=== PATIENT | male | born 1935 | race Caucasian/White ===

== ENCOUNTER 2016-09-18 15:39 | Inpatient (IN) | payer MEDICARE, OTHER ==
[~2016-09-18] VITALS: Ht 177.8 cm; Wt 89.4 kg
[~2016-09-18 15:39] MED LIST: DESV50TA PO; EZET1TAB43 PO; FISH12002 PO; HYDR25TA4 PO; LOSA100T7 PO; METOPROLOL 50MG; MULT-974 PO; MULT1TAB63; OMG1KC; TRAM-42 PO; TRAM50TA2 PO; VYTORIN; WARF-48 PO; WARF5TAB6 PO; WRF2.5T; WRF5T
--- NOTE | 2016-09-18 15:44 | ED Syncope ---
General Chief Complaint: Dizziness/Syncope Stated Complaint: FALL Source of Information: Patient Exam Limitations: No Limitations History of Present Illness Time Seen by Provider: 15:42 Initial Comments To ER with reports of a dizziness and fall that occurred while at [facility] today he was shopping and fell to the floor. There was a positive loss of consciousness according to bystanders but it is uncertain whether this was preceding or following the fall. He does have a laceration to the back of his scalp and he is on Coumadin. EMS noted heart rate to be in the 50s upon arrival however blood pressure is adequate at the 150 Symptoms Prior to Episode: None Precipitating Factors: None Current Symptoms: Back to Normal Headache Allergies and Home Medications Allergies Coded Allergies: No Known Drug Allergies (Verified , 01/01/08) Home Medications Desvenlafaxine Succinate 50 Mg Tab.sr.24h 50 MG PO DAILY (Reported) Ezetimibe/Simvastatin 1 Each Tablet 1 EACH PO DAILY (Reported) Fish Oil/Borage/Flax/Om3,6,9#1 1,200 Mg Capsule 1,200 MG PO DAILY (Reported) Hydrochlorothiazide 25 Mg Tablet 25 MG PO DAILY (Reported) Losartan Potassium 100 Mg Tablet #30 100 MG PO DAILY (Reported) Multivitamin 1 Each Tablet 1 EACH PO DAILY (Reported) Tramadol HCl 50 Mg Tablet #30 50 MG PO Q12H PRN PRN PAIN Prescribed by: CELIA MARCELO on 09/09/15 0830 Warfarin Sodium 5 Mg Tablet 5 MG PO DAILY (Reported) take 5mg on Sat, Sun, and Mon, then 2.5mg on Tues, wed, thur, and Fri Warfarin Sodium 5 Mg Tablet 2.5 MG PO DAILY (Reported) take 5mg on Sat, Sun, and Mon, then 2.5mg on Tues, wed, thur, and Fri, take 1 /2 of 5mg tab Constitutional: see HPI EENTM: see HPI Respiratory: no symptoms reported Cardiovascular: no symptoms reported Genitourinary: no symptoms reported Musculoskeletal: no symptoms reported Skin: no symptoms reported Psychiatric/Neurological: No Symptoms Reported Past Stltjnl-Uzsqlc-Lyjckb Hx Patient Social History Former Smoker/When Quit: Aug 15, 1975 Immunizations Up To Date Date of Influenza Vaccine: Apr 14, 2015 Surgeries HX Surgeries: Yes (CABG X4, CATARACTS, SKIN LESION REMOVED ON CHEST) Respiratory Hx Respiratory Disorders: No Cardiovascular Hx Cardiac Disorders: Yes (QUAD BYPASS) Neurological Hx Neurological Disorders: No Reproductive System Hx Reproductive Disorders: No Sexually Transmitted Disease: No HIV/AIDS: No Genitourinary Hx Genitourinary Disorders: No Gastrointestinal Hx Gastrointestinal Disorders: No Musculoskeletal Hx Musculoskeletal Disorders: No Endocrine Hx Endocrine Disorders: No HEENT HX ENT Disorders: Yes (GLASSES) Hearing Impairment: Hard of Hearing Cancer Hx Cancer: No Cancer: Skin Psychosocial Hx Psychiatric Problems: No Integumentary HX Skin/Integumentary Disorder: Yes (LESION OF CHEST WALL) Blood Transfusions Hx Blood Disorders: No Adverse Reaction to a Blood Tr: No Physical Exam Vital Signs Vital Sign - Last 12Hours 09/18/16 15:41 Temp 98.6 Pulse 46 Resp 18 B/P 139/56 Pulse Ox 98 O2 Delivery Room Air Capillary Refill : General Appearance: No Apparent Distress WD/WN HEENT: PERRL/EOMI TMs Normal Neck: Full Range of Motion Normal Inspection Cardiovascular: Regular Rate, Rhythm Normal Peripheral Pulses Respiratory: Normal Breath Sounds No Accessory Muscle Use No Respiratory Distress Gastrointestinal: Normal Bowel Sounds Non Tender Soft Neurologic/Psychiatric: Alert Oriented x3 No Motor/Sensory Deficits Cranial Nerves: Normal Hearing, Normal Speech Motor/Sensory: No Motor Deficit, No Sensory Deficit Skin: Normal Color Warm/Dry Comments He is alert and oriented upon arrival to ER. GCS 15. There is laceration to the left side of the occiput. Pupils are equal. Patient is verbal and joking and laughing with staff. Heart rate is irregular in the mid 40s. Blood pressure 140 systolic. EKG shows a complete heart block with a rate of 45. Laceration Repair : Wound Location: Scalp Wound Length (cm): 3 Wound's Depth, Shape: sub Q Wound Explored: clean Irrigated w/ Saline (ccs): 40 Anesthesia: Lidocaine w/ Epi Volume Anesthetic (ccs): 4 Staple Repair: Stapler 35W Progress Laceration to the scalp left parietal/occipital anesthetized with 5 mL of 1 percent lidocaine with epinephrine. Area scrubbed with chlorhexidine/saline solution. Irrigated with 40 mL of the same. Closed with 8 brian. Progress/Results/Core Measures Results/Orders Lab Results Laboratory Tests Test 09/18/16 15:40 Range/Units Alanine Aminotransferase (ALT/SGPT) 25 0-55 U/L Albumin 3.8 3.2-4.5 G/DL Alkaline Phosphatase 37 L 40-136 U/L Anion Gap 10 5-14 MMOL/L Aspartate Amino Transf (AST/SGOT) 27 5-34 U/L BUN/Creatinine Ratio 17 Band Neutrophils 9 % Basophils # (Auto) 0.0 0.0-0.1 10^3/uL Basophils % (Manual) 0 % Basophils (%) (Auto) 0 0-10 % Blood Morphology Comment NORMAL Blood Urea Nitrogen 26 H 7-18 MG/DL Calcium Level 8.2 L 8.5-10.1 MG/DL Carbon Dioxide Level 26 21-32 MMOL/L Chloride Level 100 98-107 MMOL/L Creatinine 1.49 H 0.60-1.30 MG/DL Eosinophils # (Auto) 0.0 0.0-0.3 10^3/uL Eosinophils % (Manual) 1 % Eosinophils (%) (Auto) 1 0-10 % Estimat Glomerular Filtration Rate 45 Glucose Level 130 H 70-105 MG/DL Hematocrit 39 L 40-54 % Hemoglobin 13.6 13.3-17.7 G/DL INR Comment 1.8 H 0.8-1.4 Lymphocytes # (Auto) 1.7 1.0-4.0 X 10^3 Lymphocytes % (Manual) 32 % Lymphocytes (%) (Auto) 34 12-44 % Magnesium Level 1.9 1.8-2.4 MG/DL Mean Corpuscular Hemoglobin 31 25-34 PG Mean Corpuscular Hemoglobin Concent 35 32-36 G/DL Mean Corpuscular Volume 88 80-99 FL Mean Platelet Volume 10.5 H 7.4-10.4 FL Monocytes # (Auto) 1.4 H 0.0-1.0 X 10^3 Monocytes % (Manual) 15 % Monocytes (%) (Auto) 28 H 0-12 % Neutrophils # (Auto) 1.9 1.8-7.8 X 10^3 Neutrophils % (Manual) 43 % Neutrophils (%) (Auto) 37 L 42-75 % Platelet Count 156 130-400 10^3/uL Potassium Level 3.7 3.6-5.0 MMOL/L Prothrombin Time 20.3 H 12.2-14.7 SEC Red Blood Count 4.45 4.35-5.85 10^6/uL Red Cell Distribution Width 14.1 10.0-14.5 % Sodium Level 136 135-145 MMOL/L Total Bilirubin 0.5 0.1-1.0 MG/DL Total Protein 6.5 6.4-8.2 G/DL Troponin I < 0.30 <0.30 NG/ML White Blood Count 5.1 4.3-11.0 10^3/uL My Orders Orders-RADHA ANAYA SERVER SUPPORT TECHNICIAN Cbc With Automated Diff (09/18/16 15:41) Magnesium (09/18/16 15:41) Ua Culture If Indicated (09/18/16 15:41) Protime With Inr (09/18/16 15:41) Ct Head/Cervical Spine Wo (09/18/16 15:41) Saline Lock/Iv-Start (09/18/16 15:41) Manual Differential (09/18/16 15:40) Lidocaine/Epi 1% 1:100,000 (Xylocaine /E (09/18/16 16:00) Vital Signs/I&O Vital Sign - Last 12Hours 09/18/16 15:41 Temp 98.6 Pulse 46 Resp 18 B/P 139/56 Pulse Ox 98 O2 Delivery Room Air Diagnostic Imaging Diagonstic Imaging: Xray, CT Plain Films/CT/US/NM/MRI: chest, head Comments NAME: ROSA ISELA [facility] REC#: [id number] PT STATUS: REG ER : 1935 PHYSICIAN: ANJEL POND MD ADMIT DATE: 09/18/16/ER Draft Date of Exam:09/18/16 CHEST 1 VIEW, AP/PA ONLY INDICATION: Syncopal episode. TECHNIQUE: Single view chest 4:02 PM. CORRELATION STUDY: 01/03/2009 FINDINGS: Post sternotomy changes. Cardiac enlargement. Vasculature within normal limits. Likely scarring about the left lung base again demonstrated. Lungs are overall relatively clear. Trace effusions not excluded. Defibrillator pad over the left lower chest. IMPRESSION: Post sternotomy changes. Stable cardiac enlargement without failure. Trace effusions not excluded. Dictated on workstation # [id number] Dict: 09/18/16 1611 Trans: 09/18/16 1633 [facility] [id number] Interpreted by: WESTON LEBLANC DO Electronically signed by: Departure Communication Time/Spoke to Admitting Phy: 16:29 Communication Discussed the case with Dr. Olson. We'll admit the patient, plan tentatively for pacemaker placement today Time/Spoke to Consulting Physi: 16:39 Communication/Consulting We will consult Dr. Wilson Given the renal insufficiency. Impression Impression: Primary Impression: Syncope Additional Impressions: Scalp laceration Complete heart block Disposition: ADMITTED INPATIENT Condition: Improved Decision to Admit Reason: Admit from ER (General) Decision to Admit/Date: Sep 25, 2016 Time/Decision to Admit Time: 16:30 Departure-Patient Inst. Referrals: KATHY LOREDO MD (PCP/Family) Primary Care Physician RADHA ANAYA APRN Sep 18, 2016 15:44
--- OUTSIDE RECORDS SUMMARY | 2016-09-18 15:45 | XMS REPORT | Continuity of Care Document ---
Author Author [facility] Address Unknown Phone Unavailable Allergies Active Description Code Type Severity Reaction Onset Reported/Identified Relationship to Patient Clinical Status Yes No Known Drug Allergies [id number] Drug Allergy Unknown N/ A 01/01/2008 Medications Problems Date Dx Coded Attending Type Code Diagnosis Diagnosed By 01/09/2014 ANJEL POND MD Ot 805.4 FX LUMBAR VERTEBRA-CLOSE 01/09/2014 ANJEL POND MD Ot E884.9 FALL-1 LEVEL TO OTH NEC 01/09/2014 ANJEL POND MD Ot V58.61 ANTICOAGULANTS,LT,CURRENT USE 01/09/2014 ANJEL POND MD Ot V58.69 OTH MED,LT,CURRENT USE 01/11/2014 HAYDEE PRUITT MD Ot 272.0 PURE HYPERCHOLESTEROLEM 01/11/2014 HAYDEE PRUITT MD Ot 401.9 HYPERTENSION NOS 01/11/2014 HAYDEE PRUITT MD Ot 924.20 CONTUSION OF FOOT 01/11/2014 HAYDEE PRUITT MD Ot E884.9 FALL-1 LEVEL TO OT NEC 01/11/2014 HAYDEE PRUITT MD Ot V43.3 HEART VALVE REPLAC NEC 01/11/2014 HAYDEE PRUITT MD Ot V45.81 AORTOCORONARY BYPASS 01/11/2014 HAYDEE PRUITT MD Ot V58.61 ANTICOAGULANTS,LT,CURRENT USE 01/11/2014 HAYDEE PRUITT MD Ot V58.69 OTH MED,LT,CURRENT USE 05/19/2014 RADHA DONOVAN DO V06.1 TDAP DX 10/08/2014 Ot 441.4 10/08/2014 Ot 574.20 10/15/2014 Ot 441.4 10/15/2014 Ot 574.20 05/10/2015 Ot 433.30 05/10/2015 Ot 441.4 05/10/2015 Ot 397.0 05/10/2015 Ot 414.00 05/10/2015 Ot 424.0 05/10/2015 Ot 429.3 05/10/2015 Ot V43.3 05/10/2015 Ot 441.4 05/10/2015 Ot 574.20 05/12/2015 BAIMA, CHARLOTTE L BLOCKER AND CUTTER CONTACT LENS Ot I10 05/12/2015 BAIMA, [place] L [employer] CUTTER CONTACT LENS Ot I25.10 05/12/2015 BAIMA, [place] L BLOCKER AND CUTTER CONTACT LENS Ot I71.4 05/12/2015 BAIMA, [place] L BLOCKER AND CUTTER CONTACT LENS Ot I77.9 05/12/2015 BAIMA, [place] L BLOCKER AND CUTTER CONTACT LENS Ot Z79.01 05/12/2015 BAIMA, [place] L BLOCKER AND CUTTER CONTACT LENS Ot Z95.4 06/01/2015 BAIMA, [place] L BLOCKER AND CUTTER CONTACT LENS Ot I10 06/01/2015 BAIMA, [place] L BLOCKER AND CUTTER CONTACT LENS Ot I25.10 06/01/2015 BAIMA, [place] L BLOCKER AND CUTTER CONTACT LENS Ot I71.4 06/01/2015 BAIMA, [place] L BLOCKER AND CUTTER CONTACT LENS Ot I77.9 06/01/2015 BAIMA, [place] L BLOCKER AND CUTTER CONTACT LENS Ot Z79.01 06/01/2015 BAIMA, [place] L BLOCKER AND CUTTER CONTACT LENS Ot Z95.4 06/15/2015 BAIMA, [place] L BLOCKER AND CUTTER CONTACT LENS Ot I10 06/15/2015 BAIMA, [place] L BLOCKER AND CUTTER CONTACT LENS Ot I25.10 06/15/2015 BAIMA, [place] L BLOCKER AND CUTTER CONTACT LENS Ot I71.4 06/15/2015 BAIMA, [place] L BLOCKER AND CUTTER CONTACT LENS Ot I77.9 06/15/2015 BAIMA, [place] L BLOCKER AND CUTTER CONTACT LENS Ot Z79.01 06/15/2015 BAIMA, [place] L BLOCKER AND CUTTER CONTACT LENS Ot Z95.4 08/10/2015 Ot 433.30 08/10/2015 Ot 441.4 08/10/2015 Ot 397.0 08/10/2015 Ot 414.00 08/10/2015 Ot 424.0 08/10/2015 Ot 429.3 08/10/2015 Ot V43.3 08/10/2015 Ot 441.4 08/10/2015 Ot 574.20 08/10/2015 BAIMA, [place] L BLOCKER AND CUTTER CONTACT LENS Ot I10 08/10/2015 BAIMA, [place] L BLOCKER AND CUTTER CONTACT LENS Ot I25.10 08/10/2015 BA[place] L BLOCKER AND CUTTER CONTACT LENS Ot I71.4 08/10/2015 BA[place] L BLOCKER AND CUTTER CONTACT LENS Ot I77.9 08/10/2015 BAIMA, [place] L BLOCKER AND CUTTER CONTACT LENS Ot Z79.01 08/10/2015 BAIMA, [place] L BLOCKER AND CUTTER CONTACT LENS Ot Z95.4 08/10/2015 BAIMA, [place] L BLOCKER AND CUTTER CONTACT LENS Ot I10 08/10/2015 BAIMA, [place] L BLOCKER AND CUTTER CONTACT LENS Ot I25.10 08/10/2015 BAIMA, [place] L BLOCKER AND CUTTER CONTACT LENS Ot I71.4 08/10/2015 BAIMA, [place] L BLOCKER AND CUTTER CONTACT LENS Ot I77.9 08/10/2015 BAIMA, [place] L BLOCKER AND CUTTER CONTACT LENS Ot Z79.01 08/10/2015 [place] L BLOCKER AND CUTTER CONTACT LENS Ot Z95.4 08/10/2015 DAVIAN RIVERA, CELIA Rdz Ot L98.9 08/10/2015 DAVIAN RIVERA, CELIA M Ot Z01.810 08/10/2015 DAVIAN RIVERA, CELIA M Ot Z01.812 08/10/2015 DAVIAN RIVERA, CELIA Rdz Ot Z11.2 08/10/2015 DAVIAN RIVERA, CELIA Rdz Ot 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 08/10/2015 DAVIAN RIVERA, CELIA Rdz Ot I10 ESSENTIAL (PRIMARY) HYPERTENSION 08/10/2015 DAVIAN RIVERA, CELIA Rdz Ot Z95.2 PRESENCE OF PROSTHETIC HEART VALVE 08/18/2015 DAVIAN RIVERA, CELIA Rzd Ot L98.9 08/18/2015 DAVIAN RIVERA, CELIA M Ot Z01.810 08/18/2015 DAVIAN RIVERA, CELIA Rdz Ot Z01.812 08/18/2015 DAVIAN RIVERA, CELIA Rdz Ot Z11.2 09/09/2015 DAVIAN RIVERA, CELIA Rdz Ot 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 09/09/2015 DAVIAN RIVERA, CELIA Rdz Ot Z79.01 HADOOP INFRASTRUCTURE ARCHITECT (CURRENT) USE OF ANTICOAGULANT 02/02/2016 Ot 441.4 ABDOM AORTIC ANEURYSM 02/02/2016 Ot 397.0 TRICUSPID VALVE DISEASE 02/02/2016 Ot 414.00 CORON ATHEROSCLER NOS TYPE VESSEL, NATIV 02/02/2016 Ot 424.0 MITRAL VALVE DISORDER 02/02/2016 Ot 429.3 CARDIOMEGALY 02/02/2016 Ot V43.3 HEART VALVE REPLAC NEC 02/02/2016 Ot 441.4 ABDOM AORTIC ANEURYSM 02/02/2016 Ot 574.20 CHOLELITHIASIS NOS 02/02/2016 BAICH[place]LOTTE ROSARIO L BLOCKER AND CUTTER CONTACT LENS Ot I10 ESSENTIAL (PRIMARY) HYPERTENSION 02/02/2016 BAIM[place] L BLOCKER AND CUTTER CONTACT LENS Ot I25.10 ATHSCL HEART DISEASE OF [place] CORONARY 02/02/2016 BAIM[place]OO[place] L BLOCKER AND CUTTER CONTACT LENS Ot I71.4 ABDOMINAL AORTIC ANEURYSM, WITHOUT RUPTU 02/02/2016 BAIMA, [place] L BLOCKER [employer] CUTTER CONTACT LENS Ot I77.9 DISORDER OF ARTERIES AND ARTERIOLES, UNS 02/02/2016 BAIMA [place] L [employer] CUTTER CONTACT LENS Ot Z79.01 SNF (CURRENT) USE OF ANTICOAGULANT 02/02/2016 BAIMA, [place] L BLOCKER AND CUTTER CONTACT LENS Ot Z95.4 PRESENCE OF OTHER HEART-VALVE REPLACEMEN 02/02/2016 BAIMA [place] L BLOCKER [employer] CUTTER CONTACT LENS Ot I10 ESSENTIAL (PRIMARY) HYPERTENSION 02/02/2016 BAIMA [place] L BLOCKER AND CUTTER CONTACT LENS Ot I25.10 ATHSCL HEART DISEASE OF [place] CORONARY 02/02/2016 [place] ROSARIO L BLOCKER AND CUTTER CONTACT LENS Ot I71.4 ABDOMINAL AORTIC ANEURYSM, WITHOUT RUPTU 02/02/2016 [place] L BLOCKER AND CUTTER CONTACT LENS Ot I77.9 DISORDER OF ARTERIES AND ARTERIOLES, UNS 02/02/2016 BAIMA [place] L BLOCKER AND CUTTER CONTACT LENS Ot Z79.01 SNF (CURRENT) USE OF ANTICOAGULANT 02/02/2016 BAIMA, [place] L BLOCKER AND CUTTER CONTACT LENS Ot Z95.4 PRESENCE OF OTHER HEART-VALVE REPLACEMEN 02/02/2016 DAVIAN RIVERA, CELIA Rdz Ot L98.9 DISORDER OF THE SKIN AND SUBCUTANEOUS TI 02/02/2016 DAVIAN RIVERA, CELIA Rdz Ot Z01.810 ENCOUNTER FOR PREPROCEDURAL CARDIOVASCUL 02/02/2016 DAVIAN RIVERA, CELIA Rdz Ot Z01.812 ENCOUNTER FOR PREPROCEDURAL LABORATORY E 02/02/2016 DAVIAN RIVERA, CELIA Rdz Ot Z11.2 ENCOUNTER FOR SCREENING FOR OTHER BACTER 02/02/2016 DAVIAN RIVERA, CELIA Rdz Ot 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 02/02/2016 DAVIAN RIVERA, CELIA Rdz Ot Z01.818 ENCOUNTER FOR OTHER PREPROCEDURAL EXAMIN 02/02/2016 DAVIAN RIVERA, CELIA dRz Ot Z11.2 ENCOUNTER FOR SCREENING FOR OTHER BACTER 02/03/2016 KENY YOONC, ALI FACP CCDS Ot R42 DIZZINESS AND GIDDINESS 02/03/2016 KENY RIVERA FACC, ALI FACP CCDS Ot I25.10 ATHSCL HEART DISEASE OF [place] CORONARY 02/03/2016 KENY RIVERA FACC, ALI FACP CCDS Ot I44.1 ATRIOVENTRICULAR BLOCK, SECOND DEGREE 02/03/2016 KENY RIVERA FACC, ALI FACP CCDS Ot 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 02/03/2016 KENY RIVERA FACC, ALI FACP CCDS Ot I71.4 ABDOMINAL AORTIC ANEURYSM, WITHOUT RUPTU 02/03/2016 KENY YOONC, ALI FACP CCDS Ot R42 DIZZINESS AND GIDDINESS 02/03/2016 KENY RIVERA FACC, ALI FACP CCDS Ot Z79.01 HADOOP INFRASTRUCTURE ARCHITECT (CURRENT) USE OF ANTICOAGULANT 02/03/2016 KENY YOONC, ALI FACP CCDS Ot Z95.4 PRESENCE OF OTHER HEART-VALVE REPLACEMEN 03/02/2016 KENY RIVERA FACC, ALI FACP CCDS Ot I25.10 ATHSCL HEART DISEASE OF [place] CORONARY 03/02/2016 KENY RIVERA FACC, ALI FACP CCDS Ot I44.1 ATRIOVENTRICULAR BLOCK, SECOND DEGREE 03/02/2016 KENY RIVERA FACC, ALI FACP CCDS Ot 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 Visit Date/Time Discharge Status Pt. Type Provider Facility Loc./Unit Complaint [id number] 05/19/2014 10:36:00 05/19/2014 23: 59:59 CLS Outpatient RADHA DONOVAN DO
[2016-09-18 15:55] LABS: BASOPHILS % (AUTO) 0 % (0-10); EOSINOPHILS % (AUTO) 1 % (0-10); LYMPHOCYTES # (AUTO) 1.7 X 10^3 (1.0-4.0); LYMPHOCYTES % (AUTO) 34 % (12-44); MEAN CORPUSCULAR HEMOGLOBIN 31 PG (25-34); MEAN CORPUSCULAR HGB CONC 35 G/DL (32-36); MEAN CORPUSCULAR VOLUME 88 FL (80-99); MEAN PLATELET VOLUME 10.5 FL (7.4-10.4); MONOCYTES # (AUTO) 1.4 X 10^3 (0.0-1.0); MONOCYTES % (AUTO) 28 % (0-12); NEUTROPHILS # (AUTO) 1.9 X 10^3 (1.8-7.8); NEUTROPHILS % (AUTO) 37 % (42-75); PLATELET COUNT 156 10^3/uL (130-400); RED BLOOD COUNT 4.45 10^6/uL (4.35-5.85); RED CELL DISTRIBUTION WIDTH 14.1 % (10.0-14.5); WHITE BLOOD COUNT 5.1 10^3/uL (4.3-11.0)
[2016-09-18] MEDS ORDERED: LIDOCAINE/EPI 1%-1:100,000 (XYLOCAINE) 20ML INJ ONE (16:00)
[2016-09-18 16:06] LABS: BAND NEUTROPHILS 9 %; BASOPHILS % (MANUAL) 0 %; EOSINOPHILS % (MANUAL) 1 %; LYMPHOCYTES % (MANUAL) 32 %; NEUTROPHILS % (MANUAL) 43 %
--- NOTE | 2016-09-18 16:13 | Cardiology History & Physical ---
HPI-Cardiology Cardiology H&P Date of Admission 09-18-16 Primary Care Physician Damian Irvin MD Attending Physician Moraima Olson MD FACP [facility] Consulting Physician MARIO Mr. Bray is an 81 year old male who was brought into the ED by EMS after he had a syncopal episode while at [employer]. He states he does not recall any of the events leading up to the episode. He states he was standing and the next thing he recalls they were putting him in an ambulance and he had hit his head. He reports intermittent episodes of dizziness which are chronic. He does not recall feeling dizzy before he passed out. He is unsure of how long he was out. He does not report any c/o CP, palpitations or dyspnea. His son Rosa Isela Smith is at the bedside. He currently has brian to a wound on the left back side of his head. Review of Systems-Cardiology Review of Systems Constitutional: As described under HPI Eyes: No blurred vision, No drainage, No pain, No vision change Ears/Nose/Throat: No ear discharge, No ear pain, No nasal drainage, No ulcerations Respiratory: As described under HPI Cardiovascular: As described under HPI Gastrointestinal: No constipation, No diarrhea, No nausea, No vomiting, No stool coloration changes Genitourinary: No dysuria, No discharge, No frequency, No hematuria, No urgency Skin: No rash, No skin related problems, No ulcerations Psychiatric/Neurological: syncopeNo anxiety, No depression, No focal weakness , No seizure Hematologic: No bleeding abnormalities EXO-Dzdust-Glghfk Hx Patient Social History Former smoker/When Quit: Aug 15, 1975 Recent Foreign Travel: No Recent Infectious Disease Expo: No Immunizations Up To Date Date of Influenza Vaccine: Apr 14, 2015 Past Medical History PMH As described under Assessment. Family Medical History Family Medical History: Father had a CVA. Does not report any family h/o CAD or SCD. Allergies and Home Medications Allergies Coded Allergies: No Known Drug Allergies (Verified , 01/01/08) Home Medications Desvenlafaxine Succinate 50 Mg Tab.sr.24h 50 MG PO DAILY (Reported) Ezetimibe/Simvastatin 1 Each Tablet 1 EACH PO DAILY (Reported) Fish Oil/Borage/Flax/Om3,6,9#1 1,200 Mg Capsule 1,200 MG PO DAILY (Reported) Hydrochlorothiazide 25 Mg Tablet 25 MG PO DAILY (Reported) Losartan Potassium 100 Mg Tablet #30 100 MG PO DAILY (Reported) Multivitamin 1 Each Tablet 1 EACH PO DAILY (Reported) Tramadol HCl 50 Mg Tablet #30 50 MG PO Q12H PRN PRN PAIN Prescribed by: CELIA MARCELO on 09/09/15 0830 Warfarin Sodium 5 Mg Tablet 5 MG PO DAILY (Reported) take 5mg on Sat, Sun, and Mon, then 2.5mg on , sat, , and Sat Warfarin Sodium 5 Mg Tablet 2.5 MG PO DAILY (Reported) take 5mg on Sat, Sun, and Mon, then 2.5mg on , sat, , and Sat, take 1 /2 of 5mg tab Physical Exam-Cardiology Physical Exam Vital Signs/I&O Vital Sign - Last 12Hours 09/18/16 15:41 Temp 98.6 Pulse 46 Resp 18 B/P 139/56 Pulse Ox 98 O2 Delivery Room Air Capillary Refill : Less Than 3 Seconds Constitutional: appears stated ageNo apparent distress, well-developed well- nourished HEENT: PERRLNo discharge, hard of hearing oral hygience is goodNo ulceration , No xanthelasmas are seen Neck: No carotid bruit, carotid pulses are 2 + bilaterally Respiratory: No accessory muscle use, No respiratory distress, lungs clear to auscultation Cardiovascular: irregularly irregular (bradycardic) S1 and S2 (S2 crisp and mechanical) Gastrointestinal: No tender, soft roundNo spleenomegaly Rectal: deferred Extremities: No clubbing, No cyanosis, No significant edema Neurologic/Psychiatric: alert oriented x 3 power is 5/5 both on sides Skin: No rash, No ulcerations, other (occipital, left side of head with laceration, brian in place) Data Review Labs Laboratory Tests 09/18/16 15:40: Alanine Aminotransferase (ALT/SGPT) 25, Albumin 3.8, Alkaline Phosphatase 37L, Anion Gap 10, Aspartate Amino Transf (AST/SGOT) 27, BUN/Creatinine Ratio 17, Band Neutrophils 9, Basophils # (Auto) 0.0, Basophils % (Manual) 0, Basophils (% ) (Auto) 0, Blood Morphology Comment NORMAL, Blood Urea Nitrogen 26H, Calcium Level 8.2L, Carbon Dioxide Level 26, Chloride Level 100, Creatinine 1.49H, Eosinophils # (Auto) 0.0, Eosinophils % (Manual) 1, Eosinophils (%) (Auto) 1, Estimat Glomerular Filtration Rate 45, Glucose Level 130H, Hematocrit 39L, Hemoglobin 13.6, INR Comment 1.8H, Lymphocytes # (Auto) 1.7, Lymphocytes % ( Manual) 32, Lymphocytes (%) (Auto) 34, Magnesium Level 1.9, Mean Corpuscular Hemoglobin 31, Mean Corpuscular Hemoglobin Concent 35, Mean Corpuscular Volume 88, Mean Platelet Volume 10.5H, Monocytes # (Auto) 1.4H, Monocytes % (Manual) 15 , Monocytes (%) (Auto) 28H, Neutrophils # (Auto) 1.9, Neutrophils % (Manual) 43 , Neutrophils (%) (Auto) 37L, Platelet Count 156, Potassium Level 3.7, Prothrombin Time 20.3H, Red Blood Count 4.45, Red Cell Distribution Width 14.1, Sodium Level 136, Total Bilirubin 0.5, Total Protein 6.5, Troponin I < 0.30, White Blood Count 5.1 Radiology NAME: ROSA ISELA BRAY [facility] REC#: [id number] PT STATUS: REG ER : 1935 PHYSICIAN: ANJEL POND MD ADMIT DATE: 09/18/16/ER Draft Date of Exam:09/18/16 CHEST 1 VIEW, AP/PA ONLY INDICATION: Syncopal episode. TECHNIQUE: Single view chest 4:02 PM. CORRELATION STUDY: 01/03/2009 FINDINGS: Post sternotomy changes. Cardiac enlargement. Vasculature within normal limits. Likely scarring about the left lung base again demonstrated. Lungs are overall relatively clear. Trace effusions not excluded. Defibrillator pad over the left lower chest. IMPRESSION: Post sternotomy changes. Stable cardiac enlargement without failure. Trace effusions not excluded. Dictated on workstation # [id number] Dict: 09/18/16 1611 Trans: 09/18/16 1633 [facility] [id number] Interpreted by: WESTON LEBLANC DO Electronically signed by: NAME: ROSA ISELA BRAY [facility] REC#: [id number] PT STATUS: REG ER : 1935 PHYSICIAN: RADHA ANAYA APRN ADMIT DATE: 09/18/16/ER Draft Date of Exam:09/18/16 CT HEAD/CERVICAL SPINE WO PROCEDURE: CT head and CT cervical spine without contrast. TECHNIQUE: Multiple contiguous axial images were obtained through the brain and cervical spine without the use of intravenous contrast. Sagittal and coronal reformations through the cervical spine were then performed. INDICATION: Fell, head and neck pain. CT of the head: FINDINGS: There is soft tissue edema over the posterior aspect of the left parietal bone. There are a few droplets of gas in this area as well. There is no sign of a skull fracture, however, and there is no evidence for an acute intracranial abnormality. Specifically, there is no mass, shift of the midline or hemorrhage. The ventricles are not abnormally dilated and stable in size when compared to the prior exam of 01/09/14. The cortical atrophy seen previously is again evident and no different. The orbits are symmetrical and within normal limits. The sinuses, where visualized, are clear. IMPRESSION: There is soft tissue edema along the posterior aspect of the left parietal bone. There is no evidence for a skull fracture in this area and there is no sign of an acute intracranial abnormality. CT cervical spine: There are no previous studies available for comparison. FINDINGS: The reconstructed parasagittal images show straightening of the cervical spine. This may be secondary to muscle spasm and/or positioning. There is moderate narrowing of the disc space at C5-C6 and mild narrowing at C6-C7. There does not appear to be any significant central stenosis at either of these levels. There is no fracture or acute bony abnormality identified. There is no sign of retropharyngeal edema. The lung apices are clear. In the inferior pole of the right lobe of the thyroid, there is a 1.4 x 1.8 cm low-density nodule. Ultrasound would be recommended for further evaluation of this finding. IMPRESSION: 1. There is no evidence for an acute bony abnormality. 2. There is degenerative disc and bony disease at C5-C6 and C6-C7. 3. The low-density nodule in the right lobe of the thyroid is of uncertain etiology. Ultrasound would be recommended to better characterize this finding. 4. These results were discussed with Dr. Pond in the ER. Dictated on workstation # [id number] Dict: 09/18/16 1604 Trans: 09/18/16 1641 [facility] [id number] Interpreted by: ORIN PORTER MD ECG Impression ECG Comment CHB A/P-Cardiology Assessment/Admission Diagnosis Syncope d/t CHB Intermittent advanced AV block. Following cessation of beta blockers there still is evidence of Mobitz I and Mobitz II AV block, albeit asymptomatic. This has been evaluated by Dr Kelly, his EP, in Aug 2013 and no device implant was advised. Repeat Holter of 02/01/16 sinus jourdan with 1 deg AVB, intermittent 2:1 AVB, and sinus arrest episodes with pauses up to 3 sec, but apparently without syncopal symptoms. This, too, has been evaluated by his EP, Dr Kelly, on 02/21/16 , who feels that this is 1st deg and Wenckebach that pacemaker implantation is not needed. 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 Last echocardiogram was in 05/24/15. It showed well preserved globular left ventricular systolic function with an ejection fraction of 50- 55%, paradoxical septal motion, adequately functioning mechanical prosthetic valve, mild MR, mod enlargement of ascending aorta and left atrium Coronary artery disease with a history of coronary artery bypass surgery. Cardiac catheterization of 01/03/08 showed patent composite left internal mammary artery and saphenous vein graft to left anterior descending artery, two obtuse marginal arteries and the distal right coronary artery. The arteries to which the grafts go exhibited moderate diffuse disease. Proximal portions of the [place] coronary arteries were occluded. Hyperlipidemia being treated with statin therapy. This is being followed by Dr. Irvin. Chronic anticoagulation with warfarin History of abdominal aortic aneurysm on CT angiography of the abdominal aorta in 2002. On this CT angiography, some dissection was reported as well, and the patient saw Dr. Jung of Cardiovascular Surgery, who felt that the dissection was old. On subsequent ultrasonography by Dr. 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 On abdominal CT with contrast of July 2009, there was a calcified aorta without aneurysm. In August 2009 ultrasonography did not report an significant aneurysm. 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 On 06/30 u/s showed mild dilatation of distal abdominal aorta (measuring 3.1 cm); this remains unchanged on abd aortic u/s of 05/10/15 that showed AAA measuring 2.9x3.1. Last abd ao u/s on 04/18/16: AAA measuring 3 cm in max dimension, unchanged compared to previous study Cholelithiasis. Diverticulosis of the sigmoid colon on abdominal CT with contrast of July 2009. Hypertension, currently well controlled. Mild to mod carotid arterial disease per ultrasonography of 02/10/16 H/o restless legs, currently stable Presbycusis Discussion and Recomendations Syncopal episode likely d/t CHB. Advise PPM implantation. We have discussed procedure, risks, benefits and potential complications of PPM implantation. He and his son verbalize understanding and provide informed consent for dual chamber PPM. Continue current medications including warfarin d/t prosthetic AoVR. Admit to the ICU. We will plan on device implantation tomorrow or sooner if indicated. Monitor lab closely. Further recommendations will be based on his hospital course. This H&P is being scribed by Mickey Ernst APRN on behalf of Dr. Olson after discussion regarding plan of care. Physician Assessment Physician Assessment Lungs: good bilat air entry Cor: reg A&R * As documented in our note above * I spoke with him and answered his questions * Plan perm pacemaker for tomorrow CHARLOTTE ERNST COMPLETION ENGINEER Sep 18, 2016 16:13 MORAIMA OLSON MD FACP FAC CCDS Sep 18, 2016 19:15
[2016-09-18 16:17] LABS: INR 1.8 (0.8-1.4); PROTHROMBIN TIME PATIENT 20.3 SEC (12.2-14.7)
[2016-09-18 16:24] LABS: ALANINE AMINOTRANSFERASE 25 U/L (0-55); ALBUMIN 3.8 G/DL (3.2-4.5); ANION GAP 10 MMOL/L (5-14); ASPARTATE AMINO TRANSFERASE 27 U/L (5-34); BILIRUBIN,TOTAL 0.5 MG/DL (0.1-1.0); BLOOD UREA NITROGEN 26 MG/DL (7-18); BUN/CREATININE RATIO 17; CALCIUM 8.2 MG/DL (8.5-10.1); CARBON DIOXIDE 26 MMOL/L (21-32); CHLORIDE 100 MMOL/L (98-107); CREATININE SERUM 1.49 MG/DL (0.60-1.30); GFR ESTIMATED 45; GLUCOSE 130 MG/DL (70-105); MAGNESIUM 1.9 MG/DL (1.8-2.4); POTASSIUM 3.7 MMOL/L (3.6-5.0); SODIUM 136 MMOL/L (135-145); TOTAL PROTEIN 6.5 G/DL (6.4-8.2)
[2016-09-18 16:30] LABS: TROPONIN I < 0.30 NG/ML (<0.30)
--- NOTE | 2016-09-18 16:34 | Diagnostic Imaging Report ---
INDICATION: Syncopal episode. TECHNIQUE: Single view chest 4:02 PM. CORRELATION STUDY: 01/03/2009 FINDINGS: Post sternotomy changes. Cardiac enlargement. Vasculature within normal limits. Likely scarring about the left lung base again demonstrated. Lungs are overall relatively clear. Trace effusions not excluded. Defibrillator pad over the left lower chest. IMPRESSION: Post sternotomy changes. Stable cardiac enlargement without failure. Trace effusions not excluded. Dictated by: Dictated on workstation # [id number]
--- NOTE | 2016-09-18 16:42 | Diagnostic Imaging Report ---
PROCEDURE: CT head and CT cervical spine without contrast. TECHNIQUE: Multiple contiguous axial images were obtained through the brain and cervical spine without the use of intravenous contrast. Sagittal and coronal reformations through the cervical spine were then performed. INDICATION: Fell, head and neck pain. CT of the head: FINDINGS: There is soft tissue edema over the posterior aspect of the left parietal bone. There are a few droplets of gas in this area as well. There is no sign of a skull fracture, however, and there is no evidence for an acute intracranial abnormality. Specifically, there is no mass, shift of the midline or hemorrhage. The ventricles are not abnormally dilated and stable in size when compared to the prior exam of 01/09/14. The cortical atrophy seen previously is again evident and no different. The orbits are symmetrical and within normal limits. The sinuses, where visualized, are clear. IMPRESSION: There is soft tissue edema along the posterior aspect of the left parietal bone. There is no evidence for a skull fracture in this area and there is no sign of an acute intracranial abnormality. CT cervical spine: There are no previous studies available for comparison. FINDINGS: The reconstructed parasagittal images show straightening of the cervical spine. This may be secondary to muscle spasm and/or positioning. There is moderate narrowing of the disc space at C5-C6 and mild narrowing at C6-C7. There does not appear to be any significant central stenosis at either of these levels. There is no fracture or acute bony abnormality identified. There is no sign of retropharyngeal edema. The lung apices are clear. In the inferior pole of the right lobe of the thyroid, there is a 1.4 x 1.8 cm low-density nodule. Ultrasound would be recommended for further evaluation of this finding. IMPRESSION: 1. There is no evidence for an acute bony abnormality. 2. There is degenerative disc and bony disease at C5-C6 and C6-C7. 3. The low-density nodule in the right lobe of the thyroid is of uncertain etiology. Ultrasound would be recommended to better characterize this finding. 4. These results were discussed with Dr. Baker in the ER. Dictated by: Dictated on workstation # [id number]
[2016-09-18] MEDS ORDERED: BACITRACIN INJECTION 50,000 UNIT, SODIUM CHLORIDE 0.9% IRRIGATIO 500 ML IR ONE ×2 (17:00)
[2016-09-18] MEDS ORDERED: ceFAZolin 1,000 MG (ANCEF) VIAL IV ONE (17:00)
[2016-09-18] MEDS ORDERED: warFARin 5 MG (COUMADIN) TAB PO NR (19:30)
[2016-09-18] MEDS ORDERED: CATHETER FLUSH 10 ML SYR IV PRN (19:30)
[2016-09-18] MEDS: ACETAMINOPHEN 325 MG TABLET/CAPLET (TYLENOL) PO PRN (19:32)
[2016-09-18 19:45] VITALS: BP 135/45
[2016-09-18 20:00] VITALS: BP 126/46
[2016-09-18 21:00] VITALS: BP 110/47
[2016-09-18] MEDS: NS IV 1000 ML 1,000 ML IV SCH (21:01)
[2016-09-18 22:00] VITALS: BP 115/51
[2016-09-18 23:00] VITALS: BP 122/61
[2016-09-19] VITALS (24 sets, daily range): BP systolic 99–135; BP diastolic 37–78
[2016-09-19 03:59] LABS: BASOPHILS % (AUTO) 0 % (0-10); EOSINOPHILS % (AUTO) 0 % (0-10); LYMPHOCYTES # (AUTO) 1.2 X 10^3 (1.0-4.0); LYMPHOCYTES % (AUTO) 26 % (12-44); MEAN CORPUSCULAR HEMOGLOBIN 30 PG (25-34); MEAN CORPUSCULAR HGB CONC 34 G/DL (32-36); MEAN CORPUSCULAR VOLUME 88 FL (80-99); MEAN PLATELET VOLUME 10.3 FL (7.4-10.4); MONOCYTES # (AUTO) 0.7 X 10^3 (0.0-1.0); MONOCYTES % (AUTO) 16 % (0-12); NEUTROPHILS # (AUTO) 2.7 X 10^3 (1.8-7.8); NEUTROPHILS % (AUTO) 58 % (42-75); PLATELET COUNT 143 10^3/uL (130-400); RED BLOOD COUNT 4.57 10^6/uL (4.35-5.85); WHITE BLOOD COUNT 4.7 10^3/uL (4.3-11.0)
[2016-09-19 04:10] LABS: INR 1.8 (0.8-1.4); PROTHROMBIN TIME PATIENT 20.3 SEC (12.2-14.7)
[2016-09-19 04:32] LABS: ALBUMIN 3.6 G/DL (3.2-4.5); BILIRUBIN,TOTAL 0.5 MG/DL (0.1-1.0); CALCIUM 8.1 MG/DL (8.5-10.1); CREATININE SERUM 1.42 MG/DL (0.60-1.30); MAGNESIUM 1.8 MG/DL (1.8-2.4); PHOSPHORUS 2.7 MG/DL (2.3-4.7); POTASSIUM 4.2 MMOL/L (3.6-5.0); TOTAL PROTEIN 6.2 G/DL (6.4-8.2)
[2016-09-19] MEDS: ACETAMINOPHEN 325 MG TABLET/CAPLET (TYLENOL) PO PRN ×3 (04:43→18:22)
[2016-09-19 04:51] LABS: THYROID STIMULATING HORMONE 1.24 UIU/ML (0.35-4.94)
--- NOTE | 2016-09-19 08:12 | Progress Note-Cardiology ---
Cardiology SOAP Progress Note Subjective: Has had flu-like symptoms for several days and had high-grade fever last night No cp or palp No syncope since admission Objective: I&O/Vital Signs Vital Sign - Last 12Hours 09/18/16 09/18/16 09/18/16 09/19/16 21:00 22:00 23:00 00:00 Pulse 67 71 76 72 Resp 16 19 19 21 B/P 110/47 115/51 122/61 114/59 Pulse Ox 95 94 95 94 O2 Delivery Room Air Room Air Room Air Room Air 09/19/16 09/19/16 09/19/16 09/19/16 00:00 00:00 01:00 01:00 Temp 100.0 Pulse 75 75 Resp 17 B/P 131/66 Pulse Ox 94 96 O2 Delivery Room Air 09/19/16 09/19/16 09/19/16 09/19/16 02:00 03:00 04:00 04:00 Pulse 62 47 49 Resp 28 12 9 B/P 132/41 109/47 125/49 Pulse Ox 97 95 94 97 O2 Delivery Room Air Room Air Room Air 09/19/16 09/19/16 09/19/16 09/19/16 04:30 04:43 05:00 05:13 Temp 103.0 103.0 100.8 Pulse 46 Resp 17 B/P 130/52 Pulse Ox 93 O2 Delivery Room Air 09/19/16 09/19/16 06:00 06:30 Temp 100.8 Pulse 66 Resp 15 B/P 118/49 Pulse Ox 92 O2 Delivery Room Air Intake and Output 09/19/16 00:00 Intake Total 200 ml Output Total 500 ml Balance -300 ml Weight (Pounds): 199 Weight (Ounces): 9.0 Weight (Calculated Kilograms): 90.408017 Constitutional: appears stated ageNo apparent distress, well-developed well- nourished Respiratory: No accessory muscle use, No respiratory distress, lungs clear to auscultation (except bs diminished at the bases) Cardiovascular: irregularly irregular (bradycardic) S1 and S2 (S2 crisp and mechanical) Gastrointestional: No tender, soft roundNo spleenomegaly Extremities: No clubbing, No cyanosis, No significant edema Neurologic/Psychiatric: alert oriented x 3 power is 5/5 both on sides Skin: No rash, No ulcerations, other (occipital, left side of head with laceration, brian in place) Results/Procedures: Labs Laboratory Tests 09/18/16 15:40: Alanine Aminotransferase (ALT/SGPT) 25, Albumin 3.8, Alkaline Phosphatase 37L, Anion Gap 10, Aspartate Amino Transf (AST/SGOT) 27, BUN/Creatinine Ratio 17, Band Neutrophils 9, Basophils # (Auto) 0.0, Basophils % (Manual) 0, Basophils (% ) (Auto) 0, Blood Morphology Comment NORMAL, Blood Urea Nitrogen 26H, Calcium Level 8.2L, Carbon Dioxide Level 26, Chloride Level 100, Creatinine 1.49H, Eosinophils # (Auto) 0.0, Eosinophils % (Manual) 1, Eosinophils (%) (Auto) 1, Estimat Glomerular Filtration Rate 45, Glucose Level 130H, Hematocrit 39L, Hemoglobin 13.6, INR Comment 1.8H, Lymphocytes # (Auto) 1.7, Lymphocytes % ( Manual) 32, Lymphocytes (%) (Auto) 34, Magnesium Level 1.9, Mean Corpuscular Hemoglobin 31, Mean Corpuscular Hemoglobin Concent 35, Mean Corpuscular Volume 88, Mean Platelet Volume 10.5H, Monocytes # (Auto) 1.4H, Monocytes % (Manual) 15 , Monocytes (%) (Auto) 28H, Neutrophils # (Auto) 1.9, Neutrophils % (Manual) 43 , Neutrophils (%) (Auto) 37L, Platelet Count 156, Potassium Level 3.7, Prothrombin Time 20.3H, Red Blood Count 4.45, Red Cell Distribution Width 14.1, Sodium Level 136, Total Bilirubin 0.5, Total Protein 6.5, Troponin I < 0.30, White Blood Count 5.1 09/19/16 03:39: Alanine Aminotransferase (ALT/SGPT) 26, Albumin 3.6, Alkaline Phosphatase 37L, Anion Gap 10, Aspartate Amino Transf (AST/SGOT) 29, BUN/Creatinine Ratio 17, Basophils # (Auto) 0.0, Basophils (%) (Auto) 0, Blood Urea Nitrogen 24H, Calcium Level 8.1L, Carbon Dioxide Level 25, Chloride Level 102, Creatinine 1.42H, Eosinophils # (Auto) 0.0, Eosinophils (%) (Auto) 0, Estimat Glomerular Filtration Rate 48, Glucose Level 112H, Hematocrit 40, Hemoglobin 13.8, INR Comment 1.8H, Lymphocytes # (Auto) 1.2, Lymphocytes (%) (Auto) 26, Magnesium Level 1.8, Mean Corpuscular Hemoglobin 30, Mean Corpuscular Hemoglobin Concent 34, Mean Corpuscular Volume 88, Mean Platelet Volume 10.3, Monocytes # (Auto) 0.7, Monocytes (%) (Auto) 16H, Neutrophils # (Auto) 2.7, Neutrophils (%) (Auto) 58, Platelet Count 143, Potassium Level 4.2, Prothrombin Time 20.3H, Red Blood Count 4.57, Red Cell Distribution Width 14.0, Sodium Level 137, Total Bilirubin 0.5, Total Protein 6.2L, White Blood Count 4.7, Phosphorus Level 2.7, Thyroid Stimulating Hormone (TSH) 1.24 Laboratory Tests 09/18/16 15:40 09/19/16 03:39 A/P: Assessment: Syncope d/t intermittnet CHB. Previously he has domonstrated intermittent advanced AV block, but he had been evaluated by his EP, Dr Kelly in Aug 2013 and on 02/21/16 and was felt not to need a pacemaker Intermittent high-grade fever during this hosp History of aortic valve replacement and replacement of the ascending aorta and aortic arch for a large ascending thoracic aortic aneurysm in 1999. Last echocardiogram was in 05/24/15. It showed well preserved globular left ventricular systolic function with an ejection fraction of 50- 55%, paradoxical septal motion, adequately functioning mechanical prosthetic valve, mild MR, mod enlargement of ascending aorta and left atrium Coronary artery disease with a history of coronary artery bypass surgery. Cardiac catheterization of 01/03/08 showed patent composite left internal mammary artery and saphenous vein graft to left anterior descending artery, two obtuse marginal arteries and the distal right coronary artery. The arteries to which the grafts go exhibited moderate diffuse disease. Proximal portions of the [place] coronary arteries were occluded. Hyperlipidemia being treated with statin therapy. This is being followed by Dr. Irvin. Chronic anticoagulation with warfarin History of abdominal aortic aneurysm on CT angiography of the abdominal aorta in 2002. On this CT angiography, some dissection was reported as well, and the patient saw Dr. Jung of Cardiovascular Surgery, who felt that the dissection was old. On subsequent ultrasonography by Dr. 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 On abdominal CT with contrast of July 2009, there was a calcified aorta without aneurysm. In August 2009 ultrasonography did not report an significant aneurysm. 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 On 06/30 u/s showed mild dilatation of distal abdominal aorta (measuring 3.1 cm); this remains unchanged on abd aortic u/s of 05/10/15 that showed AAA measuring 2.9x3.1. Last abd ao u/s on 04/18/16: AAA measuring 3 cm in max dimension, unchanged compared to previous study Cholelithiasis. Diverticulosis of the sigmoid colon on abdominal CT with contrast of July 2009. Hypertension, currently well controlled. Mild to mod carotid arterial disease per ultrasonography of 02/10/16 H/o restless legs, currently stable Presbycusis Plan: * High-grade fever is of concern * I have called Dr Irvin and discussed the case with him and have asked for a Medical consult to address fever * We will repeat echo * We will postpone pacemaker for now, until the issue of systemic infection is sorted out ASHLEY BUSTILLO MD FACP FAC CCDS Sep 19, 2016 08:12
[2016-09-19] MEDS ORDERED: ENOXAPARIN 100 MG/1 ML (LOVENOX) SYR SC NR (08:15)
[2016-09-19] MEDS: NS IV 1000 ML 1,000 ML IV SCH (10:30)
[2016-09-19] MEDS ORDERED: cefTRIAXone INJECTION 1,000 MG in NS (IVPB) 50 ML IV SCH (11:45)
[2016-09-19] MEDS ORDERED: NS IV 1000 ML 1,000 ML IV ONE (12:00)
[2016-09-19] MEDS ORDERED: AZITHROMYCIN 250 MG TAB (ZITHROMAX) PO NR (12:00)
[2016-09-19 12:43] LABS: BILIRUBIN,URINE NEGATIVE (NEGATIVE); KETONES,URINE NEGATIVE (NEGATIVE); LEUKOCYTE ESTERASE ,URINE NEGATIVE (NEGATIVE); NITRITE,URINE NEGATIVE (NEGATIVE); PH,URINE 6.5 (5-9); PROTEIN,URINE NEGATIVE (NEGATIVE); UROBILINOGEN,URINE NORMAL (NORMAL)
--- NOTE | 2016-09-19 12:50 | Diagnostic Imaging Report ---
Portable erect AP chest at 05:07 a.m. INDICATION: Syncope. FINDINGS: The heart is mildly enlarged, but the heart does seem somewhat less prominent than noted on the prior exam of 09/18/2016. The sternotomy wires and surgical clips noted previously are again evident and no different. In the interval since the previous study, some crowding of the bronchovascular markings in each infrahilar region has developed. I suspect that there is now mild atelectasis/infiltrate in each infrahilar region. The band of atelectasis/scar formation coursing obliquely over the left lower lobe seen previously is again evident and no different. The lungs are otherwise clear. There is no significant pleural effusion identified. The mediastinum is not widened. The osseous structures are intact. IMPRESSION: The appearance of the chest has worsened somewhat since the prior study as mild atelectasis/infiltrate has developed in both infrahilar regions. A follow-up study will be recommended for continued evaluation. Dictated by: Dictated on workstation # [id number]
[2016-09-19 12:52] LABS: SQUAMOUS EPITHELIAL CELL,UR RARE /HPF
--- NOTE | 2016-09-19 13:12 | Pulmonary Consultation ---
History of Present Illness History of Present Illness Date of Consultation 09/19/16 13:06 Date of Admission History of Present Illness 81yo who presented to ED via EMS [facility]p [facility] PT does not recall event. Denies CP, palpitations, or dyspnea. He did hit his head and has brian for wound closure left occipital area. Pt has been running a fever and influenza this morning is positive. Allergies and Home Medications Allergies Coded Allergies: No Known Drug Allergies (Verified , 01/01/08) Home Medications Desvenlafaxine Succinate 50 Mg Tab.sr.24h 50 MG PO DAILY (Reported) Ezetimibe/Simvastatin 1 Each Tablet 1 TAB PO DAILY (Reported) Fish Oil/Borage/Flax/Om3,6,9#1 1,200 Mg Capsule 1,200 MG PO DAILY (Reported) Hydrochlorothiazide 25 Mg Tablet 25 MG PO DAILY (Reported) Losartan Potassium 100 Mg Tablet 100 MG PO DAILY (Reported) Multivitamin 1 Each Tablet 1 TAB PO DAILY (Reported) Warfarin Sodium 5 Mg Tablet 5 MG PO SuMo (Reported) Warfarin Sodium 5 Mg Tablet 2.5 MG PO We (Reported) Past Sljlvkb-Okelfp-Cjvvcs Hx Patient Social History Alcohol Use: Denies Use Recreational Drug Use: No Smoking Status: Former Smoker Type Used: Cigars Former Smoker/When Quit: Aug 15, 1975 Recent Foreign Travel: No Contact w/Someone Who Travel: No Recent Infectious Disease Expo: No Recent Hopitalizations: No Physical Abuse Screen: No Sexual Abuse: No Immunizations Up To Date Date of Pneumonia Vaccine: Apr 14, 2016 Date of Influenza Vaccine: Apr 18, 2016 Seasonal Allergies Seasonal Allergies: No Surgeries HX Surgeries: Yes (CABG X4, CATARACTS, SKIN LESION REMOVED ON CHEST) Surgeries: CABG Respiratory Hx Respiratory Disorders: No Cardiovascular Hx Cardiac Disorders: Yes (QUAD BYPASS, AND ONE STENT) Cardiac Disorders: Coronary Artery Disease, Heart Attack Neurological Hx Neurological Disorders: No Reproductive System Hx Reproductive Disorders: No Sexually Transmitted Disease: No HIV/AIDS: No Genitourinary Hx Genitourinary Disorders: No Gastrointestinal Hx Gastrointestinal Disorders: No Musculoskeletal Hx Musculoskeletal Disorders: No Endocrine Hx Endocrine Disorders: No HEENT HX ENT Disorders: Yes (GLASSES) Hearing Impairment: Hard of Hearing Cancer Hx Cancer: Yes Cancer: Skin Psychosocial Hx Psychiatric Problems: No Integumentary HX Skin/Integumentary Disorder: Yes (LESION OF CHEST WALL) Blood Transfusions Hx Blood Disorders: No Adverse Reaction to a Blood Tr: No Exam Exam Vital Signs Date Time Temp Pulse Resp B/P Pulse Ox O2 Delivery O2 Flow Rate FiO2 09/19/16 11:53 99.7 09/19/16 11:53 99.8 09/19/16 11:00 62 18 117/54 96 Room Air 09/19/16 10:34 100.6 09/19/16 10:15 100.6 09/19/16 10:00 63 17 102/52 97 Room Air 09/19/16 09:00 58 20 104/37 96 Room Air 09/19/16 08:45 94 09/19/16 08:45 100.7 09/19/16 08:00 59 25 99/37 98 Room Air 09/19/16 07:45 99.7 09/19/16 07:00 67 24 109/45 96 Room Air 09/19/16 07:00 61 09/19/16 06:30 100.8 09/19/16 06:00 66 15 118/49 92 Room Air 09/19/16 05:00 46 17 130/52 93 Room Air 09/19/16 04:43 103.0 09/19/16 04:30 103.0 09/19/16 04:00 49 9 125/49 97 Room Air 09/19/16 04:00 94 09/19/16 03:00 47 12 109/47 95 Room Air 09/19/16 02:00 62 28 132/41 97 Room Air 09/19/16 01:00 75 17 131/66 96 Room Air 09/19/16 01:00 75 09/19/16 00:00 94 09/19/16 00:00 100.0 09/19/16 00:00 72 21 114/59 94 Room Air 09/18/16 23:00 76 19 122/61 95 Room Air 09/18/16 22:00 71 19 115/51 94 Room Air 09/18/16 21:00 67 16 110/47 95 Room Air 09/18/16 20:00 94 09/18/16 20:00 44 16 126/46 98 Room Air 09/18/16 19:48 45 09/18/16 19:45 45 8 135/45 100 Room Air 09/18/16 19:45 96 3/7/17 19:40 101.1 46 18 97 09/18/16 15:41 98.6 46 18 139/56 98 Room Air I & O 09/19/16 07:00 Intake Total 400 ml Output Total 1000 ml Balance -600 ml General Appearance: No Apparent Distress WD/WN HEENT: PERRL/EOMI TMs Normal Neck: Full Range of Motion Normal Inspection Respiratory: Normal Breath Sounds No Accessory Muscle Use No Respiratory Distress Cardiovascular: Regular Rate, Rhythm Normal Peripheral Pulses Capillary Refill: Less Than 3 Seconds Neurologic/Psychiatric: Alert Oriented x3 No Motor/Sensory Deficits Skin: Normal Color Warm/Dry Results Lab Laboratory Tests 09/18/16 15:40 09/19/16 03:39 Assessment/Plan Assessment/Plan S/P syncope -Head CT no acute change Influezna + -Tamiflu HX of aortic valve replacement hx of advanced AV block Clinical Quality Measures DVT/VTE Risk/Contraindication: Risk Factor Score Per Nursin RFS Level Per Nursing on Admit: 4+=Very High TOYA NAVARRO DO Sep 19, 2016 13:12
[2016-09-19] MEDS: OSELTAMIVIR 75 MG (TAMIFLU) BOX OF 10 PO SCH ×2 (13:30→20:33)
--- NOTE | 2016-09-19 16:47 | Consultation-Hospitalist ---
HPI History of Present Illness: HPI/Chief Complaint Mr. Shah is an 81-year-old white male well-known to me who was feeling well up until Saturday. He started off with a dry cough and body aches and pains. He then developed some chills and fever. He reported poor appetite. He apparently was out at [facility] with his son and while standing recalls feeling lightheaded subsequently blacked out and fell striking his head suffering a laceration over the left parietal area. There was no witnessed seizure activity. He does have known sick sinus syndrome and a little over a year ago was sent to an EP physician in [place] for consideration for pacemaker placement as he was noted to have a 3 second positive and a Holter monitor. It was ultimately decided to hold off at that time. In the emergency room he was apparently having episodes of second-degree AV block with bradycardia and reported pauses over 2 seconds. He was also noted to be febrile and was transferred to the intensive care unit admitted by Dr. BUSTILLO. He was sleeping soundly this morning upon my arrival arouses easily was alert. He is a rather poor historian a more accurate history is obtained from his son present at the bedside. Currently his monitor revealed sinus rhythm with a heart rate in 60s Date Seen 09/19/16 Attending Physician Kathy Loredo MD PCP Kathy Loredo MD Referring Physician Date of Admission Sep 18, 2016 at 17:01 Home Medications & Allergies Home Medications Reviewed patient Home Medication Reconciliation Form Allergies Coded Allergies: No Known Drug Allergies (Verified , 01/01/08) Past Ftxfesp-Gckmnq-Ekhiev Hx Patient Social History Alcohol Use: Denies Use Recreational Drug Use: No Smoking Status: Former Smoker Former smoker/When Quit: Aug 15, 1975 Type Used: Cigars Physical Abuse Screen: No Sexual Abuse: No Recent Foreign Travel: No Contact w/other who traveled: No Recent Hopitalizations: No Recent Infectious Disease Expo: No Immunizations Up To Date Date of Pneumonia Vaccine: Apr 14, 2016 Date of Influenza Vaccine: Apr 18, 2016 Seasonal Allergies Seasonal Allergies: No Surgeries HX Surgeries: Yes (CABG X4, CATARACTS, SKIN LESION REMOVED ON CHEST) Surgeries: CABG Respiratory Hx Respiratory Disorders: No Cardiovascular Hx Cardiovascular Disorders: Yes (QUAD BYPASS, AND ONE STENT) Cardiac Disorders: Coronary Artery Disease, Heart Attack Neurological Hx Neurological Disorders: No Reproductive System Hx Reproductive Disorders: No Sexually Transmitted Disease: No HIV/AIDS: No Genitourinary Hx Genitourinary Disorders: No Gastrointestinal Hx Gastrointestinal Disorders: No Musculoskeletal Hx Musculoskeletal Disorders: No Endocrine Hx Endocrine Disorders: No HEENT HX ENT Disorders: Yes (GLASSES) Hearing Impairment: Hard of Hearing Cancer Hx Cancer: Yes Cancer: Skin Psychosocial Hx Psychiatric Problems: No Integumentary HX Skin/Integumentary Disorder: Yes (LESION OF CHEST WALL) Blood Transfusions Hx Blood Disorders: No Adverse Reaction to a Blood Tr: No Review of Systems Constitutional: see HPI chills fever malaise weakness Respiratory: cough Cardiovascular: see HPINo chest pain, No edema, No Hx of Intervention, No palpitations, syncope vascular heart diseasNo other Physical Exam Physical Exam Vital Signs Vital Sign - Last 12Hours 09/18/16 15:41 Temp 98.6 Pulse 46 Resp 18 B/P 139/56 Pulse Ox 98 O2 Delivery Room Air Capillary Refill : Less Than 3 Seconds General Appearance: No Apparent Distress HEENT: PERRL/EOMI Other (Left conjunctival injection noted Natalee left parietal laceration mild swelling) Neck: Full Range of Motion Normal Inspection Supple Respiratory: No Accessory Muscle Use No Respiratory Distress Other (Few rales noted in the left base that do clear with inspiration chest is clear elsewhere) Cardiovascular: Regular Rate, Rhythm No Edema No Gallop Normal Peripheral Pulses Other (Metallic S1 and S2 with soft 1 to 2/6 systolic ejection murmur heard best at the second right intercostal space no diastolic murmurs are noted) Extremity: Normal Capillary Refill Normal Inspection Normal Range of Motion Non Tender No Calf Tenderness No Pedal Edema Neurologic/Psychiatric: Alert Oriented x3 Results Results/Procedures Lab Laboratory Tests 09/18/16 15:40 09/19/16 03:39 Assessment/Plan Admission Diagnosis 1. Syncope secondary to combination of sick sinus syndrome with likely high- grade heart block in addition to influenza A Tamiflu is been initiated. Pacemaker placement per Dr. BUSTILLO to follow 2. Influenza A despite vaccination earlier this year. 3. History of coronary artery disease status post bypass. 4. Ascending aortic aneurysm status post repair same time the patient underwent bypass grafting with mechanical aortic valve replacement. Clinical Quality Measures DVT/VTE Risk/Contraindication: Risk Factor Score Per Nursin RFS Level Per Nursing on Admit: 4+=Very High KATHY LOREDO MD Sep 19, 2016 16:47
[2016-09-19] MEDS ORDERED: warFARin 5 MG (COUMADIN) TAB PO SCH (18:00)
[2016-09-19] MEDS ORDERED: IBUPROFEN 600 MG (MOTRIN) TAB PO NR (20:09)
[2016-09-20] VITALS (21 sets, daily range): BP systolic 101–154; BP diastolic 34–94
[2016-09-20] MEDS: NS IV 1000 ML 1,000 ML IV SCH ×3 (01:10→15:11)
[2016-09-20 05:15] LABS: BASOPHILS % (AUTO) 0 % (0-10); EOSINOPHILS # (AUTO) 0.1 10^3/uL (0.0-0.3); EOSINOPHILS % (AUTO) 3 % (0-10); LYMPHOCYTES # (AUTO) 1.1 X 10^3 (1.0-4.0); LYMPHOCYTES % (AUTO) 46 % (12-44); MEAN CORPUSCULAR HEMOGLOBIN 30 PG (25-34); MEAN CORPUSCULAR HGB CONC 34 G/DL (32-36); MEAN CORPUSCULAR VOLUME 89 FL (80-99); MEAN PLATELET VOLUME 10.6 FL (7.4-10.4); MONOCYTES # (AUTO) 0.6 X 10^3 (0.0-1.0); MONOCYTES % (AUTO) 22 % (0-12); NEUTROPHILS # (AUTO) 0.7 X 10^3 (1.8-7.8); NEUTROPHILS % (AUTO) 28 % (42-75); PLATELET COUNT 119 10^3/uL (130-400); RED BLOOD COUNT 4.35 10^6/uL (4.35-5.85); RED CELL DISTRIBUTION WIDTH 13.9 % (10.0-14.5); WHITE BLOOD COUNT 2.5 10^3/uL (4.3-11.0)
[2016-09-20 05:24] LABS: INR 1.6 (0.8-1.4); PROTHROMBIN TIME PATIENT 18.4 SEC (12.2-14.7)
[2016-09-20 05:33] LABS: CALCIUM 7.7 MG/DL (8.5-10.1); CREATININE SERUM 1.25 MG/DL (0.60-1.30); MAGNESIUM 1.8 MG/DL (1.8-2.4); PHOSPHORUS 2.6 MG/DL (2.3-4.7); POTASSIUM 4.4 MMOL/L (3.6-5.0)
[2016-09-20] MEDS ORDERED: HEParin (CATH LAB) 0 ML IV ONE (06:40)
[2016-09-20] MEDS ORDERED: NS IV 1000 ML 0 ML ONE (06:40)
[2016-09-20] MEDS ORDERED: LIDOCAINE 1% INJ 20 ML (XYLOCAINE) VIAL ONE (06:40)
[2016-09-20] MEDS ORDERED: ceFAZolin 1,000 MG (ANCEF) VIAL ONE (06:41)
[2016-09-20] MEDS ORDERED: BACITRACIN INJECTION 50,000 UNIT, SODIUM CHLORIDE 0.9% IRRIGATIO 500 ML IR ONE ×2 (06:45)
--- NOTE | 2016-09-20 08:38 | Progress Note-Hospitalist ---
Subjective HPI/CC On Admission Mr. Shah is an 81-year-old white male well-known to me who was feeling well up until Saturday. He started off with a dry cough and body aches and pains. He then developed some chills and fever. He reported poor appetite. He apparently was out at [facility] with his son and while standing recalls feeling lightheaded subsequently blacked out and fell striking his head suffering a laceration over the left parietal area. There was no witnessed seizure activity. He does have known sick sinus syndrome and a little over a year ago was sent to an EP physician in [place] for consideration for pacemaker placement as he was noted to have a 3 second positive and a Holter monitor. It was ultimately decided to hold off at that time. In the emergency room he was apparently having episodes of second-degree AV block with bradycardia and reported pauses over 2 seconds. He was also noted to be febrile and was transferred to the intensive care unit admitted by Dr. BUSTILLO. He was sleeping soundly this morning upon my arrival arouses easily was alert. He is a rather poor historian a more accurate history is obtained from his son present at the bedside. Currently his monitor revealed sinus rhythm with a heart rate in 60s Date Seen 09/20/16 Subjective/Events-last exam patient was sleeping this morning arouses easily. He reports loose nonproductive cough. He denies chest pain. Staff report heart rates in the 40- 70 bpm range with no high-grade heart block. Patient denies chills or fever MAXIMUM TEMPERATURE was little over 101. Objective Exam Vital Signs Vital Sign - Last 12Hours 09/18/16 15:41 Temp 98.6 Pulse 46 Resp 18 B/P 139/56 Pulse Ox 98 O2 Delivery Room Air Capillary Refill : Less Than 3 Seconds General Appearance: No Apparent Distress Eyes: Bilateral Eye PERRL Neck: Full Range of Motion Supple Respiratory: Other (U rales in left base that do clear with deep inspiration. No wheezing or rhonchi are appreciated.) Cardiovascular: Regular Rate, Rhythm No Edema No Gallop No JVD Normal Peripheral Pulses Other (metallic S1 and S2 with soft 1 2/6 soft ejection murmur heard best at second right intercostal space unchanged no diastolic murmurs are noted.) Extremity: No Pedal Edema Other (no purpura noted no petechia) Neurologic/Psychiatric: Alert Oriented x3 Normal Mood/Affect Results/Procedures Lab Laboratory Tests 09/20/16 04:48 Assessment/Plan Assessment and Plan Assess & Plan/Chief Complaint 1. Sick sinus syndrome with syncope due to high-grade heart block. 2. Influenza a aggravating number 1. 3. Neutropenia and mild thrombocytopenia likely due to number 2 with possible early left lower lobe pneumonia. While I think that viral etiology did influenza is most likely he is immune compromised and for this reason and also due to the fact that pacemaker placement is going to be necessary will initiate Rocephin IV today. I would recommend putting off pacemaker placement and tell neutropenia and thrombocytopenia have stabilized. We will need to discuss these concerns with Dr. BUSTILLO. KATHY LOREDO MD Sep 20, 2016 08:38
[2016-09-20] MEDS: OSELTAMIVIR 75 MG (TAMIFLU) BOX OF 10 PO SCH ×2 (08:39→20:05)
--- NOTE | 2016-09-20 08:56 | Diagnostic Imaging Report ---
Portable erect AP chest at 4:40 AM. INDICATION: Respiratory distress. The heart is stable when compared with the prior exam of 09/19/2016. The sternotomy wires and surgical clips noted previously are again evident and no different. The band of increased density arching over the left heart border seen on the previous study is again evident and unchanged. The infrahilar regions do seem better aerated than on the prior exam. This may in part be due to the improved inspiratory effort; however, there is only a small amount of residual atelectasis/infiltrate in both infrahilar regions. The upper lungs are clear. The mediastinum is not widened. The osseous structures are intact. IMPRESSION: The appearance of the chest has improved as the infrahilar regions do seem better aerated. No new abnormality has developed. Dictated by: Dictated on workstation # [id number]
[2016-09-20] MEDS ORDERED: AZITHROMYCIN 250 MG TAB (ZITHROMAX) PO SCH (09:00)
--- NOTE | 2016-09-20 09:22 | ECHOCARDIOGRAPHY REPORT ---
PROCEDURE PHYSICIAN: ASHLEY OLSON DATE OF PROCEDURE: 09/19/2016 TWO DIMENSIONAL ECHOCARDIOGRAM REPORT PRIMARY PHYSICIAN: Dr. Irvin OTHER PHYSICIAN: REFERRING PHYSICIAN: ORDERING PHYSICIAN: Dr. Olson INDICATION FOR THE PROCEDURE: 1. Syncope. 2. Stasis post mechanical prosthetic aortic valve. MEASUREMENTS DERIVED VALUES LV DIAMETER (LAX) NORMALS NORMALS Diastolic 5.2 (3.6-5.2) Eject. Fract. (60%+/-6%) Systolic (2.3-3.9) Diastolic Vol. % Shortening (0.22-0.42) Systolic Vol. Aortic Root 3.9 IVS THICKNESS Diastolic 1.3 (0.6-1.1) LVPW THICKNESS Diastolic 1.2 (0.6-1.1) LA DIAMETER Systolic 4.6 (2.1-3.7) DESCRIPTION: This is a technically somewhat difficult study. Global left ventricular systolic function appears well preserved. There appears to be some degree of paradoxical septal motion. Left ventricular ejection fraction is approximately 55%. Mitral and tricuspid valve leaflets show good leaflet excursion. Shadowing is seen from mechanical prosthetic aortic valve. There is mild concentric left ventricular hypertrophy. Doppler imaging does not show significant valvular regurgitation. Pulmonary artery systolic pressure is approximately 30 mmHg. Mitral inflow is consistent with grade 1 diastolic dysfunction of the left ventricle. Peak pressure gradient across the aortic valve is 12 mmHg with a mean gradient of approximately 8 mmHg and the aortic valve area is calculated 1.7 sq cm. There is no evidence of significant intracardiac shunt on this transthoracic echocardiographic study. CONCLUSION: 1. Well preserved global left ventricular systolic function with an ejection fraction of approximately 55%. 2. Paradoxical septal motion. 3. Status post mechanical prosthetic aortic valve which appears to be functioning adequately. 4. Mild diastolic dysfunction of the left ventricle. 5. Pulmonary artery systolic pressure is estimated to be 30 mmHg. Job ID: [id number] Dictated Date: 09/19/2016 17:58:36 Elevator Service Mechanic Date: 09/20/2016 09:11:10 / gautam
[2016-09-20] MEDS ORDERED: ENOXAPARIN 80 MG/0.8 ML (LOVENOX) SYR SC NR (10:15)
[2016-09-20] MEDS ORDERED: warFARin 10 MG (COUMADIN) TAB PO NR (10:15)
--- NOTE | 2016-09-20 10:18 | Progress Note-Cardiology ---
Cardiology SOAP Progress Note Subjective: Gen malaise No cp or palp or syncope Objective: I&O/Vital Signs Vital Sign - Last 12Hours 09/19/16 09/20/16 09/20/16 09/20/16 23:00 00:00 00:00 00:15 Temp 97.5 Pulse 52 43 Resp 17 16 B/P 114/78 126/52 Pulse Ox 92 97 94 O2 Delivery Room Air Room Air 09/20/16 09/20/16 09/20/16 09/20/16 01:00 01:00 02:00 03:00 Pulse 45 42 43 42 Resp 14 7 14 B/P 115/34 101/44 121/44 Pulse Ox 94 97 99 O2 Delivery Room Air Room Air Room Air 09/20/16 09/20/16 09/20/16 09/20/16 04:00 04:00 04:00 05:00 Temp 97.4 Pulse 53 53 Resp 11 15 B/P 123/65 127/62 Pulse Ox 95 97 95 O2 Delivery Room Air Room Air 09/20/16 09/20/16 09/20/16 09/20/16 06:00 06:00 07:00 08:00 Temp 98.1 Pulse 57 61 Resp 9 B/P Pulse Ox 97 97 O2 Delivery Room Air Intake and Output 09/20/16 00:00 Intake Total 700 ml Output Total 1650 ml Balance -950 ml Weight (Pounds): 201 Weight (Ounces): 9.0 Weight (Calculated Kilograms): 91.772157 Constitutional: appears stated ageNo apparent distress, well-developed well- nourished Respiratory: No accessory muscle use, No respiratory distress, lungs clear to auscultation (except bs diminished at the bases) Cardiovascular: irregularly irregular (bradycardic) S1 and S2 (S2 crisp and mechanical) Gastrointestional: No tender, soft roundNo spleenomegaly Extremities: No clubbing, No cyanosis, No significant edema Neurologic/Psychiatric: alert oriented x 3 power is 5/5 both on sides Skin: No rash, No ulcerations, other (occipital, left side of head with laceration, brian in place) Results/Procedures: Labs Laboratory Tests 09/19/16 12:25: Urine Bacteria NEGATIVE, Urine Bilirubin NEGATIVE, Urine Casts NONE, Urine Clarity CLEAR, Urine Color YELLOW, Urine Crystals NONE, Urine Culture Indicated NO, Urine Glucose (UA) NEGATIVE, Urine Ketones NEGATIVE, Urine Leukocyte Esterase NEGATIVE, Urine Mucus NEGATIVE, Urine Nitrite NEGATIVE, Urine Protein NEGATIVE, Urine RBC NONE, Urine RBC (Auto) NEGATIVE, Urine Specific [place] 1.015L, Urine Squamous Epithelial Cells RARE, Urine Urobilinogen NORMAL, Urine WBC NONE, Urine pH 6.5 09/20/16 04:48: Anion Gap 8, BUN/Creatinine Ratio 21, Basophils # (Auto) 0.0, Basophils (%) ( Auto) 0, Blood Urea Nitrogen 26H, Calcium Level 7.7L, Carbon Dioxide Level 26, Chloride Level 105, Creatinine 1.25, Eosinophils # (Auto) 0.1, Eosinophils (%) ( Auto) 3, Estimat Glomerular Filtration Rate 55, Glucose Level 92, Hematocrit 39L , Hemoglobin 13.2L, INR Comment 1.6H, Lymphocytes # (Auto) 1.1, Lymphocytes (%) (Auto) 46H, Magnesium Level 1.8, Mean Corpuscular Hemoglobin 30, Mean Corpuscular Hemoglobin Concent 34, Mean Corpuscular Volume 89, Mean Platelet Volume 10.6H, Monocytes # (Auto) 0.6, Monocytes (%) (Auto) 22H, Neutrophils # ( Auto) 0.7L, Neutrophils (%) (Auto) 28L, Phosphorus Level 2.6, Platelet Count 119L, Potassium Level 4.4, Prothrombin Time 18.4H, Red Blood Count 4.35, Red Cell Distribution Width 13.9, Sodium Level 139, White Blood Count 2.5L 09/20/16 09:05: Lactic Acid Level 1.16 Microbiology 09/19/16 Influenza Types A,B Antigen (MAU) - Final, Complete Laboratory Tests 09/18/16 15:40 09/19/16 03:39 09/20/16 04:48 A/P: Assessment: Syncope d/t intermittnet CHB. Previously he has domonstrated intermittent advanced AV block, but he had been evaluated by his EP, Dr Kelly in Aug 2013 and on 02/21/16 and was felt not to need a pacemaker Influenza A Mild leukopenia and mild thrombocytopenia History of aortic valve replacement and replacement of the ascending aorta and aortic arch for a large ascending thoracic aortic aneurysm in 1999. Last echocardiogram was in 05/24/15. It showed well preserved globular left ventricular systolic function with an ejection fraction of 50- 55%, paradoxical septal motion, adequately functioning mechanical prosthetic valve, mild MR, mod enlargement of ascending aorta and left atrium Coronary artery disease with a history of coronary artery bypass surgery. Cardiac catheterization of 01/03/08 showed patent composite left internal mammary artery and saphenous vein graft to left anterior descending artery, two obtuse marginal arteries and the distal right coronary artery. The arteries to which the grafts go exhibited moderate diffuse disease. Proximal portions of the [place] coronary arteries were occluded. Hyperlipidemia being treated with statin therapy. This is being followed by Dr. Irvin. Chronic anticoagulation with warfarin History of abdominal aortic aneurysm on CT angiography of the abdominal aorta in 2002. On this CT angiography, some dissection was reported as well, and the patient saw Dr. Jung of Cardiovascular Surgery, who felt that the dissection was old. On subsequent ultrasonography by Dr. 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 On abdominal CT with contrast of July 2009, there was a calcified aorta without aneurysm. In August 2009 ultrasonography did not report an significant aneurysm. 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 On 06/30 u/s showed mild dilatation of distal abdominal aorta (measuring 3.1 cm); this remains unchanged on abd aortic u/s of 05/10/15 that showed AAA measuring 2.9x3.1. Last abd ao u/s on 04/18/16: AAA measuring 3 cm in max dimension, unchanged compared to previous study Cholelithiasis. Diverticulosis of the sigmoid colon on abdominal CT with contrast of July 2009. Hypertension, currently well controlled. Mild to mod carotid arterial disease per ultrasonography of 02/10/16 H/o restless legs, currently stable Presbycusis Plan: * Multiple issues reviewed and discussed with him and his family * Due to continuing spikes of fever and mild leukopenia and mild thrombocytopenia, we have held off on perm pacemaker today. Will reschedule for tomorrow * Because INR is subtherapeutic, we will give double dose of warfarin today. Will also give enoxaparin today * Monitor labs closely ASHLEY BUSTILLO MD FACP FAC CCDS Sep 20, 2016 10:18
[2016-09-20] MEDS: cefTRIAXone INJECTION 1,000 MG in NS (IVPB) 50 ML IV SCH (10:52)
[2016-09-21] VITALS (26 sets, daily range): BP systolic 110–161; BP diastolic 46–84
[2016-09-21] MEDS: NS IV 1000 ML 1,000 ML IV SCH (04:20)
[2016-09-21 04:39] LABS: BASOPHILS % (AUTO) 1 % (0-10); EOSINOPHILS # (AUTO) 0.1 10^3/uL (0.0-0.3); EOSINOPHILS % (AUTO) 2 % (0-10); LYMPHOCYTES # (AUTO) 1.5 X 10^3 (1.0-4.0); LYMPHOCYTES % (AUTO) 50 % (12-44); MEAN CORPUSCULAR HEMOGLOBIN 30 PG (25-34); MEAN CORPUSCULAR HGB CONC 34 G/DL (32-36); MEAN CORPUSCULAR VOLUME 88 FL (80-99); MEAN PLATELET VOLUME 10.6 FL (7.4-10.4); MONOCYTES # (AUTO) 0.5 X 10^3 (0.0-1.0); MONOCYTES % (AUTO) 16 % (0-12); NEUTROPHILS # (AUTO) 0.9 X 10^3 (1.8-7.8); NEUTROPHILS % (AUTO) 32 % (42-75); PLATELET COUNT 136 10^3/uL (130-400); RED BLOOD COUNT 4.44 10^6/uL (4.35-5.85); RED CELL DISTRIBUTION WIDTH 13.8 % (10.0-14.5)
[2016-09-21 04:49] LABS: INR 2.5 (0.8-1.4); PROTHROMBIN TIME PATIENT 27.1 SEC (12.2-14.7)
[2016-09-21 04:59] LABS: ANION GAP 10 MMOL/L (5-14); BLOOD UREA NITROGEN 23 MG/DL (7-18); BUN/CREATININE RATIO 21; CALCIUM 7.6 MG/DL (8.5-10.1); CARBON DIOXIDE 22 MMOL/L (21-32); CHLORIDE 107 MMOL/L (98-107); CREATININE SERUM 1.08 MG/DL (0.60-1.30); GFR ESTIMATED > 60; GLUCOSE 95 MG/DL (70-105); MAGNESIUM 1.8 MG/DL (1.8-2.4); PHOSPHORUS 2.5 MG/DL (2.3-4.7); POTASSIUM 3.7 MMOL/L (3.6-5.0); SODIUM 139 MMOL/L (135-145)
--- NOTE | 2016-09-21 07:02 | Pulmonary Progress Note ---
Subjective Subjective/Events-last exam Pt is doing better. Cardiology following for heart block. Exam Exam Vital Signs Date Time Temp Pulse Resp B/P Pulse Ox O2 Delivery O2 Flow Rate FiO2 09/21/16 06:00 58 15 152/71 94 Room Air 09/21/16 05:00 60 120/60 94 Room Air 09/21/16 04:00 63 19 119/51 97 Room Air 09/21/16 04:00 95 09/21/16 03:00 67 8 110/46 95 Room Air 09/21/16 02:00 65 21 115/50 94 Room Air 09/21/16 01:00 60 09/21/16 01:00 63 18 110/53 97 Room Air 09/21/16 00:00 63 20 119/56 95 Room Air 09/21/16 00:00 95 09/20/16 23:45 99.7 09/20/16 23:00 76 12 134/74 97 Room Air 09/20/16 22:00 68 116/49 97 Room Air 09/20/16 21:00 60 12 124/57 97 Room Air 09/20/16 20:00 64 14 154/75 Room Air 09/20/16 20:00 99.3 09/20/16 20:00 95 09/20/16 19:00 62 09/20/16 19:00 73 34 150/65 95 Room Air 09/20/16 18:00 65 26 129/94 96 Room Air 09/20/16 17:00 65 10 137/67 97 Room Air 09/20/16 16:00 97 09/20/16 16:00 58 11 126/57 96 Room Air 09/20/16 15:00 62 9 138/59 96 Room Air 09/20/16 14:00 65 14 125/62 98 Room Air 09/20/16 13:00 64 12 134/69 99 Room Air 09/20/16 13:00 64 09/20/16 12:00 97 09/20/16 12:00 98.4 Room Air 09/20/16 12:00 59 10 133/63 98 Room Air 09/20/16 11:00 63 20 139/63 92 Room Air 09/20/16 09:00 59 16 96 Room Air 09/20/16 08:00 98.7 59 12 125/54 99 Room Air 09/20/16 08:00 97 09/20/16 07:00 57 13 105/48 95 Room Air 09/20/16 07:00 61 I & O 09/21/16 07:00 Intake Total 3190 ml Output Total 2325 ml Balance 865 ml General Appearance: No Apparent Distress HEENT: PERRL/EOMI Other (Left conjunctival injection noted Natalee left parietal laceration mild swelling) Neck: Full Range of Motion Supple Respiratory: Other (U rales in left base that do clear with deep inspiration. No wheezing or rhonchi are appreciated.) Cardiovascular: Regular Rate, Rhythm No Edema No Gallop No JVD Normal Peripheral Pulses Other (metallic S1 and S2 with soft 1 2/6 soft ejection murmur heard best at second right intercostal space unchanged no diastolic murmurs are noted.) Capillary Refill: Less Than 3 Seconds Extremity: No Pedal Edema Other (no purpura noted no petechia) Neurologic/Psychiatric: Alert Oriented x3 Normal Mood/Affect Skin: Normal Color Warm/Dry Results Lab Laboratory Tests 09/20/16 04:48 09/21/16 04:15 Assessment/Plan Assessment/Plan S/P syncope -Head CT no acute change Influezna + -Tamiflu HX of aortic valve replacement hx of advanced AV block -cardiology following maybe getting pacemaker Clinical Quality Measures DVT/VTE Risk/Contraindication: Risk Factor Score Per Nursin RFS Level Per Nursing on Admit: 4+=Very High TOYA NAVARRO DO Sep 21, 2016 07:02
--- NOTE | 2016-09-21 07:58 | Diagnostic Imaging Report ---
INDICATION: Closed head injury. Portable chest 5:15 AM FINDINGS: There are postop changes from median sternotomy. There is some discoid atelectasis at the left lung base. There is minimal right basilar atelectasis. IMPRESSION: Basilar atelectasis. No significant change from the previous day. Dictated by: Dictated on workstation # [id number]
[2016-09-21] MEDS: cefTRIAXone INJECTION 1,000 MG in NS (IVPB) 50 ML IV SCH (08:30)
[2016-09-21] MEDS: OSELTAMIVIR 75 MG (TAMIFLU) BOX OF 10 PO SCH ×2 (08:31→21:05)
--- NOTE | 2016-09-21 08:43 | Progress Note-Cardiology ---
Cardiology SOAP Progress Note Subjective: No c/o CP, palpitations, or dyspnea. Objective: I&O/Vital Signs Vital Sign - Last 12Hours 09/21/16 09/21/16 09/21/16 09/21/16 01:00 01:00 02:00 03:00 Pulse 63 60 65 67 Resp 18 21 8 B/P 110/53 115/50 110/46 Pulse Ox 97 94 95 O2 Delivery Room Air Room Air Room Air 09/21/16 09/21/16 09/21/16 09/21/16 04:00 04:00 05:00 06:00 Pulse 63 60 58 Resp 19 15 B/P 119/51 120/60 152/71 Pulse Ox 95 97 94 94 O2 Delivery Room Air Room Air Room Air 09/21/16 09/21/16 09/21/16 07:00 08:30 08:34 Temp 97.9 Pulse 61 58 Resp 8 B/P 138/84 Pulse Ox 97 97 O2 Delivery Room Air Intake and Output 09/21/16 00:00 Intake Total 1900 ml Output Total 1050 ml Balance 850 ml Weight (Pounds): 197 Weight (Ounces): 1.0 Weight (Calculated Kilograms): 89.002623 Constitutional: appears stated ageNo apparent distress, well-developed well- nourished Respiratory: No accessory muscle use, No respiratory distress, lungs clear to auscultation (except bs diminished at the bases) Cardiovascular: irregularly irregular (bradycardic) S1 and S2 (S2 crisp and mechanical) Gastrointestional: No tender, soft roundNo spleenomegaly Extremities: No clubbing, No cyanosis, No significant edema Neurologic/Psychiatric: alert oriented x 3 power is 5/5 both on sides Skin: No rash, No ulcerations, other (occipital, left side of head with laceration, brian in place) Results/Procedures: Labs Laboratory Tests 09/21/16 04:15: Anion Gap 10, BUN/Creatinine Ratio 21, Basophils # (Auto) 0.0, Basophils (%) ( Auto) 1, Blood Urea Nitrogen 23H, Calcium Level 7.6L, Carbon Dioxide Level 22, Chloride Level 107, Creatinine 1.08, Eosinophils # (Auto) 0.1, Eosinophils (%) ( Auto) 2, Estimat Glomerular Filtration Rate > 60, Glucose Level 95, Hematocrit 39L, Hemoglobin 13.3, INR Comment 2.5H, Lymphocytes # (Auto) 1.5, Lymphocytes (% ) (Auto) 50H, Magnesium Level 1.8, Mean Corpuscular Hemoglobin 30, Mean Corpuscular Hemoglobin Concent 34, Mean Corpuscular Volume 88, Mean Platelet Volume 10.6H, Monocytes # (Auto) 0.5, Monocytes (%) (Auto) 16H, Neutrophils # ( Auto) 0.9L, Neutrophils (%) (Auto) 32L, Phosphorus Level 2.5, Platelet Count 136 , Potassium Level 3.7, Prothrombin Time 27.1H, Red Blood Count 4.44, Red Cell Distribution Width 13.8, Sodium Level 139, White Blood Count 3.0L Microbiology 09/19/16 Blood Culture - Preliminary, Resulted No growth 09/19/16 Influenza Types A,B Antigen (MAU) - Final, Complete Procedures NAME: ROSA ISELA [facility] REC#: [id number] PT STATUS: ADM IN : 1935 PHYSICIAN: ASHLEY BUSTILLO MD, MA, FACP, FACC, FSCAI, CCDS ADMIT DATE: 09/18/16/ICU Signed Date of Exam: 09/21/16 CHEST 1 VIEW, AP/PA ONLY INDICATION: Closed head injury. Portable chest 5:15 AM FINDINGS: There are postop changes from median sternotomy. There is some discoid atelectasis at the left lung base. There is minimal right basilar atelectasis. IMPRESSION: Basilar atelectasis. No significant change from the previous day. Dictated by: Dictated on workstation # [id number] Dict: 09/21/16 0704 Trans: 09/21/16 0823 [id number] Interpreted by: STUART ISAAC Electronically signed by:STUART ISAAC 09/21/16 0826 A/P: Assessment: Syncope d/t intermittent CHB. Previously he has demonstrated intermittent advanced AV block, but he had been evaluated by his EP, Dr Kelly in Aug 2013 and on 02/21/16 and was felt not to need a pacemaker Influenza A Mild leukopenia Mild thrombocytopenia - resolved History of aortic valve replacement and replacement of the ascending aorta and aortic arch for a large ascending thoracic aortic aneurysm in 1999. Last echocardiogram was in 05/24/15. It showed well preserved globular left ventricular systolic function with an ejection fraction of 50- 55%, paradoxical septal motion, adequately functioning mechanical prosthetic valve, mild MR, mod enlargement of ascending aorta and left atrium Coronary artery disease with a history of coronary artery bypass surgery. Cardiac catheterization of 01/03/08 showed patent composite left internal mammary artery and saphenous vein graft to left anterior descending artery, two obtuse marginal arteries and the distal right coronary artery. The arteries to which the grafts go exhibited moderate diffuse disease. Proximal portions of the [place] coronary arteries were occluded. Hyperlipidemia being treated with statin therapy. This is being followed by Dr. Irvin. Chronic anticoagulation with warfarin History of abdominal aortic aneurysm on CT angiography of the abdominal aorta in 2002. On this CT angiography, some dissection was reported as well, and the patient saw Dr. Jung of Cardiovascular Surgery, who felt that the dissection was old. On subsequent ultrasonography by Dr. 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 On abdominal CT with contrast of July 2009, there was a calcified aorta without aneurysm. In August 2009 ultrasonography did not report an significant aneurysm. 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 On 06/30 u/s showed mild dilatation of distal abdominal aorta (measuring 3.1 cm); this remains unchanged on abd aortic u/s of 05/10/15 that showed AAA measuring 2.9x3.1. Last abd ao u/s on 04/18/16: AAA measuring 3 cm in max dimension, unchanged compared to previous study Cholelithiasis. Diverticulosis of the sigmoid colon on abdominal CT with contrast of July 2009. Hypertension, currently well controlled. Mild to mod carotid arterial disease per ultrasonography of 02/10/16 H/o restless legs, currently stable Presbycusis Plan: * Procedure, risks, benefits and potential complications of PPM implant discussed in detail with pt and son. They provide informed consent. * Therapeutic INR * Plan for PPM implant later today * Monitor labs closely Physician Assessment Physician Assessment Lungs: good air entry Cor: reg A&R * As documented in our note above * I had a detailed discussion with him and his family regarding his CV issues * I have also spoken with Dr Irvin who has now allowed us to proceed with pacemaker * I reviewed in detail the rationale, procedure, risks, potential complications and alternative of perm pacemaker implantation with him and answered questions. He understands and provides informed consent CHARLOTTE MEDEROS Sep 21, 2016 08:43 ASHLEY BUSTILLO MD [facility] Sep 21, 2016 12:22 * Procedure, risks, benefits and potential complications of PPM implant discussed in detail with pt and son. They provide informed consent. * Therapeutic INR * Plan for PPM implant later today * Monitor labs closely CHARLOTTE MEDEROS Sep 21, 2016 08:43
--- NOTE | 2016-09-21 10:38 | Progress Note-Hospitalist ---
Subjective HPI/CC On Admission Mr. Shah is an 81-year-old white male well-known to me who was feeling well up until Saturday. He started off with a dry cough and body aches and pains. He then developed some chills and fever. He reported poor appetite. He apparently was out at [facility] with his son and while standing recalls feeling lightheaded subsequently blacked out and fell striking his head suffering a laceration over the left parietal area. There was no witnessed seizure activity. He does have known sick sinus syndrome and a little over a year ago was sent to an EP physician in [place] for consideration for pacemaker placement as he was noted to have a 3 second positive and a Holter monitor. It was ultimately decided to hold off at that time. In the emergency room he was apparently having episodes of second-degree AV block with bradycardia and reported pauses over 2 seconds. He was also noted to be febrile and was transferred to the intensive care unit admitted by Dr. BUSTILLO. He was sleeping soundly this morning upon my arrival arouses easily was alert. He is a rather poor historian a more accurate history is obtained from his son present at the bedside. Currently his monitor revealed sinus rhythm with a heart rate in 60s Date Seen 09/21/16 Subjective/Events-last exam Mr. Shah reports he feels well and if he doesn't get a pacemaker today he wants to go home. He denies lightheadedness. He reports that his cough is better without sputum production. He denies chest pain or shortness of breath. He has been afebrile overnight. Objective Exam Vital Signs Vital Sign - Last 12Hours 09/18/16 15:41 Temp 98.6 Pulse 46 Resp 18 B/P 139/56 Pulse Ox 98 O2 Delivery Room Air Capillary Refill : Less Than 3 Seconds General Appearance: No Apparent Distress Respiratory: Chest Non Tender Lungs Clear Normal Breath Sounds No Accessory Muscle Use No Respiratory Distress Cardiovascular: Regular Rate, Rhythm No Edema No Gallop Extremity: Normal Capillary Refill Normal Inspection Normal Range of Motion Non Tender No Calf Tenderness No Pedal Edema Results/Procedures Lab Laboratory Tests 09/21/16 04:15 Assessment/Plan Assessment and Plan Assess & Plan/Chief Complaint 1. Sick sinus syndrome with syncope due to high-grade heart block. 2. Influenza a aggravating number 1. 3. Neutropenia and mild thrombocytopenia likely due to number 2 is improving and the patient is afebrile. From my standpoint proceeding with pacemaker placement today is reasonable. Considering this will continue Rocephin today and tomorrow but do not feel the patient will require outpatient antibiotics. We'll recommend that he finish up a 5 day course of Tamiflu. KATHY LOREDO MD Sep 21, 2016 10:38
--- NOTE | 2016-09-21 11:48 | Progress Note-Hospitalist ---
Progress Note HPI/CC on Admission Mr. Shah is an 81-year-old white male well-known to me who was feeling well up until Saturday. He started off with a dry cough and body aches and pains. He then developed some chills and fever. He reported poor appetite. He apparently was out at [facility] with his son and while standing recalls feeling lightheaded subsequently blacked out and fell striking his head suffering a laceration over the left parietal area. There was no witnessed seizure activity. He does have known sick sinus syndrome and a little over a year ago was sent to an EP physician in [place] for consideration for pacemaker placement as he was noted to have a 3 second positive and a Holter monitor. It was ultimately decided to hold off at that time. In the emergency room he was apparently having episodes of second-degree AV block with bradycardia and reported pauses over 2 seconds. He was also noted to be febrile and was transferred to the intensive care unit admitted by Dr. BUSTILLO. He was sleeping soundly this morning upon my arrival arouses easily was alert. He is a rather poor historian a more accurate history is obtained from his son present at the bedside. Currently his monitor revealed sinus rhythm with a heart rate in 60s Progress Notes/Assess & Plan Date Seen 09/21/16 Diagonsis/Assessment & Plan Chart Review: WBC 3 Hgb 13.3 INR 2.5 Influenza A positive No fever cell maker: Pt receiving pacemaker today at 3pm and will plan for DC tomorrow Patient Interview: Dr. Rabago discusses pacemaker procedure with pt. Pt denies having any pain currently. Physical exam stable. Pt's last BM was Saturday, and pt states that he has not eaten much and this is not abnormal for pt. Vital signs stable, pleasant, oriented 3, very hard of hearing Regular rate and rhythm with irregularity and bradycardia noted Clear to auscultation bilaterally Assessment: Sick sinus syndrome requiring pacemaker placement due to severe bradycardia and subsequent syncopal episode that began when he had a syncopal episode in [place] during [place] Acute influenza A with fever and cough Plan: Pt receiving pacemaker today at 3pm DC tomorrow Scribed by Tr Murray under the direct supervision of Dr. Rabago. FRANCISCA RABAGO DO Sep 21, 2016 11:48
[2016-09-21] MEDS ORDERED: LIDOCAINE 1% INJ 20 ML (XYLOCAINE) VIAL ONE (13:09)
[2016-09-21] MEDS ORDERED: NS IV 1000 ML 1,000 ML ONE (13:09)
[2016-09-21] MEDS ORDERED: HEParin (CATH LAB) 1,000 ML IV ONE (13:09)
[2016-09-21] MEDS ORDERED: BACITRACIN INJECTION 50,000 UNIT, SODIUM CHLORIDE 0.9% IRRIGATIO 500 ML IR ONE ×2 (13:15)
[2016-09-21] MEDS ORDERED: BACITRACIN 50000 UNITS/500 ML NS IR ONE ×2 (14:00)
[2016-09-21] MEDS ORDERED: fentaNYL INJECTION 100 MCG/2 ML AMP ONE (14:01)
[2016-09-21] MEDS ORDERED: MIDAZOLAM 5 MG/5 ML (VERSED) VIAL ONE (14:01)
[2016-09-21] MEDS ORDERED: diphenhydrAMINE 50 MG/ML INJ (BENADRYL) ONE (14:01)
[2016-09-21] MEDS ORDERED: NS (IVPB) 50 ML ONE (14:04)
[2016-09-21] MEDS ORDERED: ceFAZolin 1,000 MG (ANCEF) VIAL ONE (14:04)
[2016-09-21] MEDS ORDERED: NEO/POLY/BAC (NEOSPORIN) OINT 15 GM TUBE ONE (14:15)
--- NOTE | 2016-09-21 14:26 | Cardiac Procedure Note-CS/ASA ---
Pre-Procedure Note Pre-Op Procedure Note H&P Reviewed The H&P was reviewed, patient examined and no changes noted. Date H&P Reviewed: Sep 21, 2016 Time H&P Reviewed: 14: Conscious Sedation Pre-Proced Time Reviewed: : ASA Class: 3 Airway Mallampati Classification: ([place] appropriate class) I. II. III, IV Lungs Heart ASA score ASA 1: a normal healthy patient ASA 2: a patient with a mild systemic disease (mid diabetes, controlled hypertension, obesity ASA 3: a patient with a severe systemic disease that limits activity (angina , COPD, prior Myocardial infarction) ASA 4: a patient with an incapacitating disease that is a constant threat to life (CHF, renal failure) ASA 5: a moribund patient not expected to survive 24 hrs. (ruptured aneurysm) ASA 6: a declared brain patient whose organs are being harvested. For emergent operations, add the letter E after the classification Grade 3 Sedation Plan: Analgesia, Amnesia, Plan communicated to team members, Discussed options with patient/fam, Discussed risks with patient/fam Note The patient is an appropriate candidate to undergo the planned procedure, sedation, and anesthesia. The patient immediately re-assessed prior to indication. ASHLEY BUSTILLO MD FACP FAC CCDS Sep 21, 2016 14:26
[2016-09-21] MEDS ORDERED: FLUMAZENIL (ROMAZICON) 0.1 MG/ML 5 ML VIAL ONE (15:26)
[2016-09-21] MEDS ORDERED: NS IV 1000 ML 1,000 ML IV SCH ×2 (15:30→16:18)
[2016-09-21] MEDS ORDERED: PATIENT MAY USE OWN MEDS, ALL PO SCH (16:30)
[2016-09-21] MEDS ORDERED: ACETAMINOPHEN 325 MG TABLET/CAPLET (TYLENOL) PO PRN (16:30)
--- NOTE | 2016-09-21 17:05 | Diagnostic Imaging Report ---
INDICATION: Followup post pacemaker placement. DISCUSSION: Two views of the chest were obtained, comparison earlier same date. Median sternotomy is stable. Interval placement of a left-sided dual-chamber pacemaker with leads projected over the right atrium and right ventricle respectively. No pneumothorax. Low lung volumes with central atelectasis. Stable heart size. IMPRESSION: 1. New left-sided pacemaker. No pneumothorax. Dictated by: Dictated on workstation # [id number]
[2016-09-21] MEDS: ceFAZolin INJECTION 1,000 MG in NS (IVPB) 50 ML IV SCH (21:06)
[2016-09-22] VITALS (13 sets, daily range): BP systolic 111–152; BP diastolic 42–64
[2016-09-22 04:27] LABS: BASOPHILS % (AUTO) 0 % (0-10); EOSINOPHILS # (AUTO) 0.1 10^3/uL (0.0-0.3); EOSINOPHILS % (AUTO) 2 % (0-10); LYMPHOCYTES # (AUTO) 1.6 X 10^3 (1.0-4.0); LYMPHOCYTES % (AUTO) 40 % (12-44); MEAN CORPUSCULAR HEMOGLOBIN 30 PG (25-34); MEAN CORPUSCULAR HGB CONC 34 G/DL (32-36); MEAN CORPUSCULAR VOLUME 87 FL (80-99); MEAN PLATELET VOLUME 10.6 FL (7.4-10.4); MONOCYTES # (AUTO) 0.4 X 10^3 (0.0-1.0); MONOCYTES % (AUTO) 10 % (0-12); NEUTROPHILS # (AUTO) 1.9 X 10^3 (1.8-7.8); NEUTROPHILS % (AUTO) 48 % (42-75); PLATELET COUNT 126 10^3/uL (130-400); RED BLOOD COUNT 4.28 10^6/uL (4.35-5.85); RED CELL DISTRIBUTION WIDTH 13.6 % (10.0-14.5)
[2016-09-22 04:41] LABS: INR 2.9 (0.8-1.4); PROTHROMBIN TIME PATIENT 30.3 SEC (12.2-14.7)
[2016-09-22 04:55] LABS: MAGNESIUM 1.8 MG/DL (1.8-2.4); PHOSPHORUS 2.7 MG/DL (2.3-4.7)
[2016-09-22 04:57] LABS: ALANINE AMINOTRANSFERASE 25 U/L (0-55); ALBUMIN 3.1 G/DL (3.2-4.5); ANION GAP 12 MMOL/L (5-14); ASPARTATE AMINO TRANSFERASE 35 U/L (5-34); BILIRUBIN,TOTAL 0.3 MG/DL (0.1-1.0); BLOOD UREA NITROGEN 22 MG/DL (7-18); BUN/CREATININE RATIO 22; CALCIUM 7.6 MG/DL (8.5-10.1); CARBON DIOXIDE 20 MMOL/L (21-32); CHLORIDE 109 MMOL/L (98-107); CREATININE SERUM 0.98 MG/DL (0.60-1.30); GFR ESTIMATED > 60; GLUCOSE 97 MG/DL (70-105); POTASSIUM 3.9 MMOL/L (3.6-5.0); SODIUM 141 MMOL/L (135-145); TOTAL PROTEIN 5.3 G/DL (6.4-8.2)
[2016-09-22] MEDS: ceFAZolin INJECTION 1,000 MG in NS (IVPB) 50 ML IV SCH (05:24)
[2016-09-22] MEDS: cefTRIAXone INJECTION 1,000 MG in NS (IVPB) 50 ML IV SCH (08:10)
[2016-09-22] MEDS: OSELTAMIVIR 75 MG (TAMIFLU) BOX OF 10 PO SCH (08:10)
--- NOTE | 2016-09-22 08:50 | PROCEDURE REPORT ---
PROCEDURE PHYSICIAN: ASHLEY BUSTILLO DATE OF PROCEDURE: 09/21/2016 PRIMARY PHYSICIAN: Dr. Irvin PREOPERATIVE DIAGNOSIS: Complete heart block with syncope. POSTOPERATIVE DIAGNOSIS: Complete heart block with syncope. PROCEDURE: Dual chamber pacemaker implantation. ESTIMATED BLOOD LOSS: Less than 25 mL. Jeffry Shah Is an 81-year-old gentleman who had an episode of syncope and was found to have complete heart block. Complete heart block is intermittent but he does have intermittent near syncope, as well. Dual chamber pacemaker implantation was carried out after having obtained an informed consent. PROCEDURE: He was brought to the cardiac catheterization laboratory in a fasting state. The left prepectoral area was prepared and draped in usual sterile fashion. 1% lidocaine was used for local anesthesia. Modified Seldinger technique was used to advance 2 guidewires into the left subclavian vein and the tip of the wires were placed in the right atrium. Subsequently, sharp and blunt dissection was used to make a pacemaker pocket and the wires were used to advance sheaths and the sheaths were used to advance leads. All lead placement was carried out under fluoroscopy. The right atrial lead is Biotronik Solia 53-lead with serial number [id number]. This is an active fixation lead that was placed at the right atrial appendage and actively fixed. Good sensing and capture thresholds were obtained. Pacing impedance was 600 ohms. P-wave amplitude was 4.4 mV. Atrial capture threshold was 0.5 v at 0.5 milliseconds. The right ventricular lead is Biotronik Solia S 60 with serial number [id number]. This is an active fixation lead that was actively fixed at the right ventricular apex. R-waves are measured at greater than 20 mV. Pacing impedance is 673 ohms. Capture threshold in the ventricle was 0.4 v at 0.5 milliseconds. Both leads were tested for diaphragmatic stimulation at 10 v and no diaphragmatic stimulation was seen. The pacemaker pocket was thoroughly irrigated with an antibiotic solution. Good hemostasis was assured. The leads were attached to a dual chamber pacemaker (Eluna 8 DR-T with serial number [id number]). The leads in the pacemaker were placed in the pacemaker pocket. We did suture the leads to the prepectoral fascia using sleeves and 0 Ethibond. After placing the leads and the pacemaker in the pacemaker pocket, the pocket was closed in 2 layers using 3.0 Vicryl. The patient tolerated the procedure well. Job ID: [id number] Dictated Date: 09/21/2016 16:30:14 Endocrinology Teacher Date: 09/22/2016 08:27:40 / tori
--- NOTE | 2016-09-22 09:12 | Diagnostic Imaging Report ---
INDICATION: Syncope and renal failure. Comparison made with prior examination from 09/21/16. FINDINGS: There's cardiomegaly. There's mild venous congestion. There is some discoid atelectasis in the left lung base. There is no pleural effusion or pneumothorax. There has been previous median sternotomy and coronary bypass graft. Pacemaker overlies left hemithorax. Impression: Cardiomegaly and mild venous congestion with some discoid atelectasis in the left lung base. Dictated by: Dictated on workstation # [id number]
[2016-09-22] MEDS ORDERED: OSELTAMIVIR 75 MG (TAMIFLU) BOX OF 10 PO SCH (09:45)
[2016-09-22] MEDS ORDERED: OSLT75C PO (11:10)
--- NOTE | 2016-09-22 11:12 | Progress Note-Hospitalist ---
Progress Note HPI/CC on Admission Mr. Shah is an 81-year-old white male well-known to me who was feeling well up until Saturday. He started off with a dry cough and body aches and pains. He then developed some chills and fever. He reported poor appetite. He apparently was out at [facility] with his son and while standing recalls feeling lightheaded subsequently blacked out and fell striking his head suffering a laceration over the left parietal area. There was no witnessed seizure activity. He does have known sick sinus syndrome and a little over a year ago was sent to an EP physician in [place] for consideration for pacemaker placement as he was noted to have a 3 second positive and a Holter monitor. It was ultimately decided to hold off at that time. In the emergency room he was apparently having episodes of second-degree AV block with bradycardia and reported pauses over 2 seconds. He was also noted to be febrile and was transferred to the intensive care unit admitted by Dr. BUSTILLO. He was sleeping soundly this morning upon my arrival arouses easily was alert. He is a rather poor historian a more accurate history is obtained from his son present at the bedside. Currently his monitor revealed sinus rhythm with a heart rate in 60s Progress Notes/Assess & Plan Date Seen 09/22/16 Diagonsis/Assessment & Plan Pacemaker insertion went without difficulty and ready to go home INR 2.9 Patient has no complaints Vital signs stable, pleasant, oriented 3, very hard of hearing Regular rate and rhythm Clear to auscultation bilaterally Assessment: Sick sinus syndrome requiring pacemaker placement due to severe bradycardia and subsequent syncopal episode that began when he had a syncopal episode in [place] during [place] Acute influenza A with fever and cough Plan: DC today Complete Tamiflu at home FRANCISCA RABAGO DO Sep 22, 2016 11:12
[2016-09-22] MEDS ORDERED: RELABEL FOR HOME USE MC SCH (11:15)
[2016-09-22] MEDS ORDERED: CEFU500T63 PO (12:38)
--- NOTE | 2016-09-22 12:40 | Discharge Inst-Cardiology ---
Discharge Inst-Cardiac Discharge Medications New Medications: Cefuroxime Axetil (Cefuroxime) 500 Mg Tablet 500 MG PO BID #10 TAB Oseltamivir Phosphate (Tamiflu) 75 Mg Cap 0 EACH PO BID #2 CAP Continued Medications: Desvenlafaxine Succinate (Pristiq) 50 Mg Tab.sr.24h 50 MG PO DAILY TAB Ezetimibe/Simvastatin (Vytorin 10-20 Mg Tablet) 1 Each Tablet 1 TAB PO DAILY TAB Fish Oil/Borage/Flax/Om3,6,9#1 (Artesian 3-6-9 1,200 mg Softgel) 1,200 Mg Capsule 1200 MG PO DAILY CAP Hydrochlorothiazide (Hydrochlorothiazide) 25 Mg Tablet 25 MG PO DAILY TAB Losartan Potassium (Losartan Potassium) 100 Mg Tablet 100 MG PO DAILY TAB Multivitamin (Multi Vitamin Daily) 1 Each Tablet 1 TAB PO DAILY TAB Warfarin Sodium (Warfarin Sodium) 5 Mg Tablet 5 MG PO SuMoSa TAB Warfarin Sodium (Warfarin Sodium) 5 Mg Tablet 2.5 MG PO TuWeTh TAB Patient Instructions Patient Instructions: F/u with Dr Olson on 09/24/16 Have Pro Time and INR checked with Dr Irvin on 09/25 or 09/26/16 Avoid lifting L arm above head and pushing/pulling with it for 3 weeks Activity & Diet Discharge Diet: Cardiac Diet ASHLEY OLSON MD [facility]AC [facility] Sep 22, 2016 12:40
[2016-09-22] MEDS ORDERED: CEFDINIR 300 MG (OMNICEF) CAP PO NR (12:45)
--- NOTE | 2016-09-22 12:46 | Progress Note-Cardiology ---
Cardiology SOAP Progress Note Subjective: Feels well. Denies cp or palp or syncope or malaise Wishes to go home Objective: I&O/Vital Signs Vital Sign - Last 12Hours 09/22/16 09/22/16 09/22/16 09/22/16 01:00 02:00 03:00 04:00 Pulse 61 61 61 70 Resp 20 21 B/P 138/61 111/49 136/61 135/64 Pulse Ox 94 93 96 98 O2 Delivery Room Air Room Air Room Air Room Air 09/22/16 09/22/16 09/22/16 09/22/16 05:00 06:00 07:00 08:10 Temp 99.1 Pulse 61 64 66 65 Resp 12 B/P 139/61 144/61 135/61 Pulse Ox 96 97 97 O2 Delivery Room Air Room Air Room Air Intake and Output 09/22/16 00:00 Intake Total 250 ml Output Total 1000 ml Balance -750 ml Weight (Pounds): 197 Weight (Ounces): 1.0 Weight (Calculated Kilograms): 89.162453 Device Insertion Site: without hematoma Bruising: mild bruising Constitutional: appears stated ageNo apparent distress, well-developed well- nourished Respiratory: No accessory muscle use, No respiratory distress, lungs clear to auscultation (except bs diminished at the bases) Cardiovascular: irregularly irregular (bradycardic) S1 and S2 (S2 crisp and mechanical) Gastrointestional: No tender, soft roundNo spleenomegaly Extremities: No clubbing, No cyanosis, No significant edema Neurologic/Psychiatric: alert oriented x 3 power is 5/5 both on sides Skin: No rash, No ulcerations, other (occipital, left side of head with laceration, brian in place) Results/Procedures: Labs Laboratory Tests 09/22/16 03:40: Alanine Aminotransferase (ALT/SGPT) 25, Albumin 3.1L, Alkaline Phosphatase 32L, Anion Gap 12, Aspartate Amino Transf (AST/SGOT) 35H, BUN/Creatinine Ratio 22, Basophils # (Auto) 0.0, Basophils (%) (Auto) 0, Blood Urea Nitrogen 22H, Calcium Level 7.6L, Carbon Dioxide Level 20L, Chloride Level 109H, Creatinine 0.98, Eosinophils # (Auto) 0.1, Eosinophils (%) (Auto) 2, Estimat Glomerular Filtration Rate > 60, Glucose Level 97, Hematocrit 37L, Hemoglobin 12.8L, INR Comment 2.9H, Lymphocytes # (Auto) 1.6, Lymphocytes (%) (Auto) 40, Magnesium Level 1.8, Mean Corpuscular Hemoglobin 30, Mean Corpuscular Hemoglobin Concent 34, Mean Corpuscular Volume 87, Mean Platelet Volume 10.6H, Monocytes # (Auto) 0.4, Monocytes (%) (Auto) 10, Neutrophils # (Auto) 1.9, Neutrophils (%) (Auto) 48, Phosphorus Level 2.7, Platelet Count 126L, Potassium Level 3.9, Prothrombin Time 30.3H, Red Blood Count 4.28L, Red Cell Distribution Width 13.6, Sodium Level 141, Total Bilirubin 0.3, Total Protein 5.3L, White Blood Count 4.0L Microbiology 09/20/16 Blood Culture - Preliminary, Resulted Staph, Coag Neg (De[employer]) 09/19/16 Influenza Types A,B Antigen (MAU) - Final, Complete Laboratory Tests 09/21/16 04:15 09/22/16 03:40 A/P: Assessment: Syncope d/t intermittent CHB, treated with dual chamber MRI-safe pacemaker ( Biotronik) on 09/21/16. Pacemaker functioning normally on interrogation carried out on 09/22/16 Influenza A Mild leukopenia and mild thrombocytopenia, likely related to Influenza - resolved History of aortic valve replacement and replacement of the ascending aorta and aortic arch for a large ascending thoracic aortic aneurysm in 1999. Last echocardiogram was in 05/24/15. It showed well preserved globular left ventricular systolic function with an ejection fraction of 50- 55%, paradoxical septal motion, adequately functioning mechanical prosthetic valve, mild MR, mod enlargement of ascending aorta and left atrium Coronary artery disease with a history of coronary artery bypass surgery. Cardiac catheterization of 01/03/08 showed patent composite left internal mammary artery and saphenous vein graft to left anterior descending artery, two obtuse marginal arteries and the distal right coronary artery. The arteries to which the grafts go exhibited moderate diffuse disease. Proximal portions of the [place] coronary arteries were occluded. Hyperlipidemia being treated with statin therapy. This is being followed by Dr. Irvin. Chronic anticoagulation with warfarin, followed by Dr Irvin History of abdominal aortic aneurysm on CT angiography of the abdominal aorta in 2002. On this CT angiography, some dissection was reported as well, and the patient saw Dr. Jung of Cardiovascular Surgery, who felt that the dissection was old. On subsequent ultrasonography by Dr. 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 On abdominal CT with contrast of July 2009, there was a calcified aorta without aneurysm. In August 2009 ultrasonography did not report an significant aneurysm. 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 On 06/30 u/s showed mild dilatation of distal abdominal aorta (measuring 3.1 cm); this remains unchanged on abd aortic u/s of 05/10/15 that showed AAA measuring 2.9x3.1. Last abd ao u/s on 04/18/16: AAA measuring 3 cm in max dimension, unchanged compared to previous study Cholelithiasis, quiescent Diverticulosis of the sigmoid colon on abdominal CT with contrast of July 2009. Hypertension, currently well controlled. Mild to mod carotid arterial disease per ultrasonography of 02/10/16 H/o restless legs, currently stable Presbycusis Plan: * I went over post-op care with him and his family * Antibiotic added to regimen for 5 days * Close f/u on INR advised with Dr Irvin * Close outpatient card f/u (for now) advised ASHLEY BUSTILLO MD FACP FAC CCDS Sep 22, 2016 12:46
--- NOTE | 2016-09-22 12:51 | Cardiology Discharge Summary ---
Diagnosis/Chief Complaint Date of Admission Sep 18, 2016 at 17:01 Date of Discharge 09/22/16 Admission Diagnosis Syncope due to complete heart block Final/Discharge Diagnosis Syncope d/t intermittent CHB, treated with dual chamber MRI-safe pacemaker ( Biotronik) on 09/21/16. Pacemaker functioning normally on interrogation carried out on 09/22/16 Influenza A Mild leukopenia and mild thrombocytopenia, likely related to Influenza - resolved History of aortic valve replacement and replacement of the ascending aorta and aortic arch for a large ascending thoracic aortic aneurysm in 1999. Last echocardiogram was in 05/24/15. It showed well preserved globular left ventricular systolic function with an ejection fraction of 50- 55%, paradoxical septal motion, adequately functioning mechanical prosthetic valve, mild MR, mod enlargement of ascending aorta and left atrium Coronary artery disease with a history of coronary artery bypass surgery. Cardiac catheterization of 01/03/08 showed patent composite left internal mammary artery and saphenous vein graft to left anterior descending artery, two obtuse marginal arteries and the distal right coronary artery. The arteries to which the grafts go exhibited moderate diffuse disease. Proximal portions of the [place] coronary arteries were occluded. Hyperlipidemia being treated with statin therapy. This is being followed by Dr. Irvin. Chronic anticoagulation with warfarin, followed by Dr Irvin History of abdominal aortic aneurysm on CT angiography of the abdominal aorta in 2002. On this CT angiography, some dissection was reported as well, and the patient saw Dr. Jung of Cardiovascular Surgery, who felt that the dissection was old. On subsequent ultrasonography by Dr. 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 On abdominal CT with contrast of July 2009, there was a calcified aorta without aneurysm. In August 2009 ultrasonography did not report an significant aneurysm. 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 On 06/30 u/s showed mild dilatation of distal abdominal aorta (measuring 3.1 cm); this remains unchanged on abd aortic u/s of 05/10/15 that showed AAA measuring 2.9x3.1. Last abd ao u/s on 04/18/16: AAA measuring 3 cm in max dimension, unchanged compared to previous study Cholelithiasis, quiescent Diverticulosis of the sigmoid colon on abdominal CT with contrast of July 2009. Hypertension, currently well controlled. Mild to mod carotid arterial disease per ultrasonography of 02/10/16 H/o restless legs, currently stable Presbycusis Chief Complaint/HPI Chief Complaint/HPI Mr. Shah is an 81 year old male who was brought into the ED by EMS after he had a syncopal episode while at [employer]. He states he does not recall any of the events leading up to the episode. He states he was standing and the next thing he recalls they were putting him in an ambulance and he had hit his head. He reports intermittent episodes of dizziness which are chronic. He does not recall feeling dizzy before he passed out. He is unsure of how long he was out. He does not report any c/o CP, palpitations or dyspnea. His son Jeffry Smith is at the bedside. He currently has brian to a wound on the left back side of his head. Was diagnosed with Influenza A during this hosp that was managed by the Med Service After acute phase of flu was over, a dual chamber pacemaker was implanted Please refer to my progress note of today (09/22/16) for condition at discharge Time spent in exam, answering questions, calling in meds, writing notes, reviewing pacemaker function today (pacemaker interrogation) and completing discharge: 12:20 - 12:52 Discharge Summary Procedures Dual chamber pacemaker implantation on 09/21/16 Discussion & Recommendations Home Medications Reviewed patient Home Medication Reconciliation Form Discharge Home Medications: Reviewed and agree with Discharge Medication list on patient's Discharge Instruction sheet Clinical Quality Measures DVT/VTE Risk/Contraindication: Risk Factor Score Per Nursin RFS Level Per Nursing on Admit: 4+=Very High ASHLEY BUSTILLO MD FACP [facility] CCDS Sep 22, 2016 12:51
== END 2016-09-22 13:20 | disposition home or self-care (01) | DRG 244 ==
LOC: EDUNIT# 15:39 → ER 15:40 → ICU 17:01
PROVIDERS: ADMIT Internal Medicine Cardiovascular Disease; ATTEND Internal Medicine
PROC: 0JQ00ZZ Repair Scalp Subcutaneous Tissue and Fascia, Open Approach (ICD-10-PCS; 2016-09-18)
PROC: 0JH636Z Insertion of Pacemaker, Dual Chamber into Chest Subcutaneous Tissue and Fascia, Percutaneous Approach (ICD-10-PCS; principal; 2016-09-21)
PROC: 02H63JZ Insertion of Pacemaker Lead into Right Atrium, Percutaneous Approach (ICD-10-PCS; 2016-09-21)
PROC: 02HK3JZ Insertion of Pacemaker Lead into Right Ventricle, Percutaneous Approach (ICD-10-PCS; 2016-09-21)
DX: I44.2 Atrioventricular block, complete (principal); I44.1 Atrioventricular block, second degree; J11.1 Influenza due to unidentified influenza virus with other respiratory manifestations; S01.01XA Laceration without foreign body of scalp, initial encounter; I25.10 Atherosclerotic heart disease of native coronary artery without angina pectoris; I10 Essential (primary) hypertension; E78.5 Hyperlipidemia, unspecified; D70.3 Neutropenia due to infection; D69.59 Other secondary thrombocytopenia; N28.9 Disorder of kidney and ureter, unspecified; I25.2 Old myocardial infarction; W19.XXXA Unspecified fall, initial encounter; Y92.512 Supermarket, store or market as the place of occurrence of the external cause; Z95.2 Presence of prosthetic heart valve; Y99.8 Other external cause status; Z95.1 Presence of aortocoronary bypass graft; Z79.01 Long term (current) use of anticoagulants; Z87.891 Personal history of nicotine dependence; Z85.828 Personal history of other malignant neoplasm of skin
CPT/HCPCS: 12002; 33208; 36415; 70450; 71010; 71020; 72125; 80048; 80053; 81000; 83605; 83735; 84100; 84443; 84484; 85007; 85025; 85027; 85610; 87040; 87081; 87804; 93005; 93306

== ENCOUNTER 2017-03-21 12:35 | Inpatient (IN) | payer MEDICARE, OTHER ==
[2017-03-21] VITALS (8 sets, daily range): BP systolic 111–149; BP diastolic 50–67
[~2017-03-21] VITALS: Ht 180.3 cm; Wt 95.4 kg
[~2017-03-21 12:35] MED LIST changes: +CEFU500T63 PO; +OSLT75C PO
[2017-03-21] MEDS ORDERED: NS IV 1000 ML 1,000 ML IV ONE (12:52)
[2017-03-21 13:00] LABS: BASOPHILS % (AUTO) 0 % (0-10); EOSINOPHILS % (AUTO) 0 % (0-10); LYMPHOCYTES # (AUTO) 2.2 X 10^3 (1.0-4.0); LYMPHOCYTES % (AUTO) 18 % (12-44); MEAN CORPUSCULAR HEMOGLOBIN 30 PG (25-34); MEAN CORPUSCULAR HGB CONC 34 G/DL (32-36); MEAN CORPUSCULAR VOLUME 89 FL (80-99); MEAN PLATELET VOLUME 10.5 FL (7.4-10.4); MONOCYTES % (AUTO) 16 % (0-12); NEUTROPHILS % (AUTO) 66 % (42-75); PLATELET COUNT 184 10^3/uL (130-400); RED CELL DISTRIBUTION WIDTH 13.9 % (10.0-14.5); WHITE BLOOD COUNT 12.2 10^3/uL (4.3-11.0)
--- NOTE | 2017-03-21 13:00 | ED Syncope ---
General Chief Complaint: Dizziness/Syncope Stated Complaint: FALL/HEAD INJ/LOC History of Present Illness Time Seen by Provider: 12:45 Initial Comments Patient reports that he was standing in his doorway at home, he got dizzy following and hitting his frontal lobe on the floor. Family reports a short loss of consciousness but no chest pain, fevers, nausea or vomiting. After the fall, he ate and then was brought to the emergency department. He denies any previous symptoms similar to this. He does have a significant cardiac history with a pacemaker and valve replacement in the past. He sees Dr. Olson for cardiology Accu-Chek 166. He is alert and oriented 3 at arrival. He reports a mild headache, initially he stated that he had some neck pain however at the present time he saying his neck does not hurt the RNs attempted to apply a c- collar, the patient refused to wear this. Patient reports that he saw Dr. Irvin 2 days ago for erythema to his left elbow. He denies any injury to the elbow. He is taking antibiotic as prescribed. Location Injury Occurred: home Timing/Prior Episodes: No Prior History Symptoms Prior to Episode: Confusion, Lightheadedness Precipitating Factors: None Loss of Consciousness: Brief (Seconds) Current Symptoms: Back to Normal, No Blurred Vision, No Chest Pain, No Diaphoresis, No Dizziness, No Headache, No Lightheadedness, No Loss of Bladder Control, No Loss of Bowel Control, No Nausea, No Weakness Allergies and Home Medications Allergies Coded Allergies: No Known Drug Allergies (Verified , 01/01/08) Home Medications Cefuroxime Axetil 500 Mg Tablet, 500 MG PO BID, #10 Prescribed by: ASHLEY OLSON on 09/22/16 1238 Desvenlafaxine Succinate 50 Mg Tab.sr.24h, 50 MG PO DAILY, (Reported) Ezetimibe/Simvastatin 1 Each Tablet, 1 TAB PO DAILY, (Reported) Fish Oil/Borage/Flax/Om3,6,9#1 1,200 Mg Capsule, 1,200 MG PO DAILY, (Reported) Hydrochlorothiazide 25 Mg Tablet, 25 MG PO DAILY, (Reported) Losartan Potassium 100 Mg Tablet, 100 MG PO DAILY, (Reported) Multivitamin 1 Each Tablet, 1 TAB PO DAILY, (Reported) Oseltamivir Phosphate 75 Mg Cap, 0 EACH PO BID, #2 Prescribed by: FRANCISCA RABAGO on 09/22/16 1110 Warfarin Sodium 5 Mg Tablet, 5 MG PO SuMoSa, (Reported) Warfarin Sodium 5 Mg Tablet, 2.5 MG PO TuWeThFr, (Reported) Constitutional: no symptoms reported, see HPI EENTM: see HPI, no symptoms reported Cardiovascular: see HPI, vascular heart diseas Gastrointestinal: no symptoms reported, see HPI All Other Systems Reviewed Negative Unless Noted: Yes Past Iqwtouq-Izlzdj-Zmchdx Hx Patient Social History Type Used: Cigars Former Smoker, Quit: Sep 14, 1990 Recent Hopitalizations: No Immunizations Up To Date Date of Pneumonia Vaccine: Apr 14, 2016 Date of Influenza Vaccine: Apr 18, 2016 Seasonal Allergies Seasonal Allergies: No Surgeries History of Surgeries: Yes (CABG X4, CATARACTS, SKIN LESION REMOVED ON CHEST) Surgeries: CABG Respiratory History of Respiratory Disorde: No Cardiovascular History of Cardiac Disorders: Yes (QUAD BYPASS, AND ONE STENT) Cardiac Disorders: Coronary Artery Disease, Heart Attack Neurological History of Neurological Disord: No Reproductive System Hx Reproductive Disorders: No Sexually Transmitted Disease: No HIV/AIDS: No Gastrointestinal History of Gastrointestinal Di: No Musculoskeletal History of Musculoskeletal Dis: No Endocrine History of Endocrine Disorders: No HEENT Hearing Impairment: Hard of Hearing Cancer History of Cancer: Yes Cancer: Skin Did You Recieve Any Treatments: No Psychosocial History of Psychiatric Problem: No Integumentary History of Skin or Integumenta: Yes (LESION OF CHEST WALL) Blood Transfusions History of Blood Disorders: No Adverse Reaction to a Blood Tr: No Reviewed Nursing Assessment Reviewed/Agree w Nursing PMH: Yes Physical Exam Vital Signs Vital Sign - Last 12Hours 03/21/17 12:35 Temp 97.4 Pulse 74 Resp 18 B/P (MAP) 152/88 Pulse Ox 98 Capillary Refill : General Appearance: No Apparent Distress, WD/WN HEENT: PERRL/EOMI, TMs Normal, Normal ENT Inspection, Pharynx Normal Neck: Full Range of Motion, Normal Inspection, Non Tender, Supple Cardiovascular: No Edema, No Murmur, Normal Peripheral Pulses, Irregularly Irregular, Tachycardia Respiratory: Chest Non Tender, Lungs Clear, Normal Breath Sounds Gastrointestinal: Normal Bowel Sounds, No Organomegaly, No Pulsatile Mass, Non Tender, Soft Back: Normal Inspection, No CVA Tenderness, No Vertebral Tenderness Extremities: Normal Capillary Refill, Normal Range of Motion, Non Tender, No Calf Tenderness, No Pedal Edema, Swelling (left elbow with mild erythema and warmth on the medial aspect, full range of motion, no fluctuance or induration noted. No olecranon bursitis noted.), Other Neurologic/Psychiatric: Alert, Oriented x3, No Motor/Sensory Deficits, Normal Mood/Affect Cranial Nerves: Normal Hearing, Normal Speech, PERRL Motor/Sensory: No Motor Deficit, No Sensory Deficit, No Pronator Drift Skin: Normal Color, Warm/Dry Lymphatic: No Adenopathy Comments Superficial skin tear to the middle of the frontal lobe, cleansed with sterile saline, 4 x 4 dressing applied. No active bleeding noted Progress/Results/Core Measures Results/Orders Lab Results Laboratory Tests Test 03/21/17 12:40 03/21/17 12:57 03/21/17 14:35 Range/Units White Blood Count 12.2 H 4.3-11.0 10^3/uL Red Blood Count 4.40 4.35-5.85 10^6/uL Hemoglobin 13.3 13.3-17.7 G/DL Hematocrit 39 L 40-54 % Mean Corpuscular Volume 89 80-99 FL Mean Corpuscular Hemoglobin 30 25-34 PG Mean Corpuscular Hemoglobin Concent 34 32-36 G/DL Red Cell Distribution Width 13.9 10.0-14.5 % Platelet Count 184 130-400 10^3/uL Mean Platelet Volume 10.5 H 7.4-10.4 FL Neutrophils (%) (Auto) 66 42-75 % Lymphocytes (%) (Auto) 18 12-44 % Monocytes (%) (Auto) 16 H 0-12 % Eosinophils (%) (Auto) 0 0-10 % Basophils (%) (Auto) 0 0-10 % Neutrophils # (Auto) 8.0 H 1.8-7.8 X 10^3 Lymphocytes # (Auto) 2.2 1.0-4.0 X 10^3 Monocytes # (Auto) 2.0 H 0.0-1.0 X 10^3 Eosinophils # (Auto) 0.0 0.0-0.3 10^3/uL Basophils # (Auto) 0.0 0.0-0.1 10^3/uL Prothrombin Time 29.0 H 12.2-14.7 SEC INR Comment 2.8 H 0.8-1.4 Activated Partial Thromboplast Time 52 H 24-35 SEC Sodium Level 136 135-145 MMOL/L Potassium Level 4.0 3.6-5.0 MMOL/L Chloride Level 101 98-107 MMOL/L Carbon Dioxide Level 25 21-32 MMOL/L Anion Gap 10 5-14 MMOL/L Blood Urea Nitrogen 31 H 7-18 MG/DL Creatinine 1.64 H 0.60-1.30 MG/DL Estimat Glomerular Filtration Rate 40 BUN/Creatinine Ratio 19 Glucose Level 147 H 70-105 MG/DL Calcium Level 8.5 8.5-10.1 MG/DL Total Bilirubin 1.2 H 0.1-1.0 MG/DL Aspartate Amino Transf (AST/SGOT) 20 5-34 U/L Alanine Aminotransferase (ALT/SGPT) 22 0-55 U/L Alkaline Phosphatase 42 40-136 U/L Troponin I < 0.30 <0.30 NG/ML Total Protein 6.8 6.4-8.2 GM/DL Albumin 3.9 3.2-4.5 GM/DL TSH Tofte Testing 3.12 0.35-4.94 UIU/ML Glucometer 166 H 70-110 MG/DL Urine Color TAB H Urine Clarity SLIGHTLY CLOUDY Urine pH 6 5-9 Urine Specific [place] 1.015 L 1.016-1.022 Urine Protein 2+ H NEGATIVE Urine Glucose (UA) NEGATIVE NEGATIVE Urine Ketones NEGATIVE NEGATIVE Urine Nitrite NEGATIVE NEGATIVE Urine Bilirubin NEGATIVE NEGATIVE Urine Urobilinogen 1 NORMAL MG/DL Urine Leukocyte Esterase 1+ H NEGATIVE Urine RBC (Auto) 1+ H NEGATIVE Urine RBC 0-2 /HPF Urine WBC 0-2 /HPF Urine Squamous Epithelial Cells NONE /HPF Urine Crystals NONE /LPF Urine Bacteria NEGATIVE /HPF Urine Casts PRESENT /LPF Urine Hyaline Casts 5-10 H /LPF Urine Mucus SMALL H /LPF Urine Culture Indicated NO My Orders Orders - GERDA HARRIS Accucheck Stat ONCE (03/21/17 12:51) Cbc With Automated Diff (03/21/17 12:51) Comprehensive Metabolic Panel (03/21/17 12:51) Protime With Inr (03/21/17 12:51) Partial Thromboplastin Time (03/21/17 12:51) Thyroid Analyzer (03/21/17 12:51) Troponin I (03/21/17 12:51) Ua Culture If Indicated (03/21/17 12:51) Ct Head/Cervical Spine Wo (03/21/17 12:51) Chest Pa/Lat (2 View) (03/21/17 12:51) Saline Lock/Iv-Start (03/21/17 12:52) Ns Iv 1000 Ml (Sodium Chloride 0.9%) (03/21/17 12:52) Elbow, Left, 3 Views (03/21/17 14:41) Dipht,Pertuss(Acell),Tet Adult (Boostrix (03/21/17 14:42) Medications Given in ED Current Medications Medications Dose Ordered Sig/Hayden Route Start Time Stop Time Status Last Admin Dose Admin Sodium Chloride 1,000 ml @ 0 mls/hr Q0M ONCE IV 03/21/17 12:52 03/21/17 12:54 DC 03/21/17 14:13 0 MLS/HR Vital Signs/I&O Vital Sign - Last 12Hours 03/21/17 12:35 Temp 97.4 Pulse 74 Resp 18 B/P (MAP) 152/88 Pulse Ox 98 Progress Note : Time: 12:45 Progress Note Initial evaluation completed, recommended labs, CT head and neck, chest x-ray, EKG and continuous telemetry monitoring. Patient's initial assessment and treatment plan reviewed with Dr. Salgado, he concurred with this. 1315 client has runs of V. tach alternating with paced sinus rhythm, he is asymptomatic with these. 1330 discussed with the patient and his son recommendation for admission based on the runs of V. tach, this could've been the cause of his syncopal episode. They've talked in the past with the supervisor lace tearing about having an internal defibrillator, at this time they're not interested in that. Patient reluctant for admission as his requires assistance with care at home. Discussed risks versus benefits of staying for observation. Patient agreed to observation admission. Reviewed patient's assessment and labs with Dr. Weiner, agreed with plans for admission and consult cardiology. 1430 patient denies any complaints at this time he is continuing to be free of chest pain or syncopal episodes. He continues to have runs of V. tach that are asymptomatic. His pulse runs from 60-110s 1500 Dr. Weiner care to evaluate patient. 1530 admission orders completed awaiting bed placement on cardiac stepdown. ECG Initial ECG Impression Date: Mar 21, 2017 Initial ECG Impression Time: 12:41 Initial ECG Rate: 76 Initial ECG Rhythm: Normal Sinus Initial ECG Intervals NE 153, QRS D 212, QT 472, QTc 581. [place] P -39, QRS 140, T -37. Initial ECG Impression: Nonspecific Changes (intraventricular conduction delay ST depression) Initial ECG Comparisson: No Previous ECG Available, Changed Comment Reviewed with Dr. Salgado, concurred with this assessment. Diagnostic Imaging Diagonstic Imaging: Xray Plain Films/CT/US/NM/MRI: chest Comments NAME: ROSA ISELA BRAY [employer] [facility] REC#: [id number] PT STATUS: REG ER : 1935 PHYSICIAN: GERDA HARRIS ADMIT DATE: 03/21/17/ER Draft Date of Exam:03/21/17 CHEST PA/LAT (2 VIEW) INDICATION: Syncope, loss of consciousness, lacerations. FINDINGS: Pacemaker device unremarkable. Sternal wires midline. The lungs are clear aside from trace curvilinear scarring in the left lung base. No effusion, pneumothorax, or failure. IMPRESSION: No acute-appearing abnormality. Dictated on workstation # [id number] Dict: 03/21/17 1351 Trans: 03/21/17 1356 [id number] Interpreted by: MARY ANN JIMENEZ Electronically signed by: Reviewed: Reviewed by Me Diagonstic Imaging: CT Plain Films/CT/US/NM/MRI: c-spine, head Comments NOE: ROSA ISELA BRAY [employer] [facility] REC#: [id number] PT STATUS: REG ER : 1935 PHYSICIAN: GERDA HARRIS ADMIT DATE: 03/21/17/ER Draft Date of Exam:03/21/17 CT HEAD/CERVICAL SPINE WO PROCEDURE: CT head and CT cervical spine without contrast. TECHNIQUE: Multiple contiguous axial images were obtained through the brain and cervical spine without the use of intravenous contrast. Sagittal and coronal reformations through the cervical spine were then performed. INDICATION: Fall striking the head. Exam compared with 09/18/2013. 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 No intracerebral hemorrhage or calvarial fracture deformity and no paranasal sinus air-fluid level. Nasal bone deformity on the left chronic. CT CERVICAL SPINE: Straightening of curvature without listhesis. Osteophyte disc material moderately stenosis of the canal chronic at the C5-C6 level. No cervical fracture or facet joint dislocation. Hypertrophic facet arthrosis at multiple levels are present greatest on the right at the C2-C3 level where there is a [id number] canal stenosis stable. 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 No acute or post traumatic sequelae. CT CERVICAL SPINE: Chronic spondylosis and facet arthrosis without fracture or dislocation. Dictated on workstation # [id number] Dict: 03/21/17 1413 Trans: 03/21/17 1427 [facility] [id number] Interpreted by: MARY ANN JIMENEZ Electronically signed by: Reviewed: Reviewed by Me Diagonstic Imaging: Xray Plain Films/CT/US/NM/MRI: elbow Comments NAME: ROSA ISELA BRAY [employer] [facility] REC#: [id number] PT STATUS: ADM Joanna : 1935 PHYSICIAN: GERDA HARRIS ADMIT DATE: 03/21/17/ICU Draft Date of Exam:03/21/17 ELBOW, LEFT, 3 VIEWS INDICATION: Fall with left elbow pain. AP, oblique, and lateral views of the left elbow are obtained. FINDINGS: No fracture or acute bony abnormality is seen. IMPRESSION: Negative left elbow. Dictated on workstation # [id number] Dict: 03/21/17 1520 Trans: 03/21/[address] [facility] [id number] Interpreted by: JOSE JUAN KILGORE MD Electronically signed by: Reviewed: Reviewed by Me Departure Impression Impression: Primary Impression: Syncopal episodes Qualified Codes: R55 - Syncope and collapse Additional Impressions: Ventricular tachycardia Cellulitis of left elbow Disposition: ADMITTED INPATIENT Condition: Stable Admissions Decision to Admit Reason: Admit from ER (General) Decision to Admit/Date: Mar 21, 2017 Time/Decision to Admit Time: 14:45 Departure-Patient Inst. Referrals: KATHY IRVIN MD (PCP/Family) Primary Care Physician GERDA HARRIS Mar 21, 2017 13:00
[2017-03-21 13:05] LABS: INR 2.8 (0.8-1.4)
[2017-03-21 13:12] LABS: ALANINE AMINOTRANSFERASE 22 U/L (0-55); ALBUMIN 3.9 GM/DL (3.2-4.5); ANION GAP 10 MMOL/L (5-14); ASPARTATE AMINO TRANSFERASE 20 U/L (5-34); BILIRUBIN,TOTAL 1.2 MG/DL (0.1-1.0); BLOOD UREA NITROGEN 31 MG/DL (7-18); BUN/CREATININE RATIO 19; CALCIUM 8.5 MG/DL (8.5-10.1); CARBON DIOXIDE 25 MMOL/L (21-32); CHLORIDE 101 MMOL/L (98-107); CREATININE SERUM 1.64 MG/DL (0.60-1.30); GFR ESTIMATED 40; GLUCOSE 147 MG/DL (70-105); SODIUM 136 MMOL/L (135-145); TOTAL PROTEIN 6.8 GM/DL (6.4-8.2)
[2017-03-21 13:32] LABS: TROPONIN I < 0.30 NG/ML (<0.30)
--- NOTE | 2017-03-21 13:57 | Diagnostic Imaging Report ---
INDICATION: Syncope, loss of consciousness, lacerations. FINDINGS: Pacemaker device unremarkable. Sternal wires midline. The lungs are clear aside from trace curvilinear scarring in the left lung base. No effusion, pneumothorax, or failure. IMPRESSION: No acute-appearing abnormality. Dictated by: Dictated on workstation # [id number]
--- NOTE | 2017-03-21 14:28 | Diagnostic Imaging Report ---
PROCEDURE: CT head and CT cervical spine without contrast. TECHNIQUE: Multiple contiguous axial images were obtained through the brain and cervical spine without the use of intravenous contrast. Sagittal and coronal reformations through the cervical spine were then performed. INDICATION: Fall striking the head. Exam compared with 09/18/2013. 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 No intracerebral hemorrhage or calvarial fracture deformity and no paranasal sinus air-fluid level. Nasal bone deformity on the left chronic. CT CERVICAL SPINE: Straightening of curvature without listhesis. Osteophyte disc material moderately stenosis of the canal chronic at the C5-C6 level. No cervical fracture or facet joint dislocation. Hypertrophic facet arthrosis at multiple levels are present greatest on the right at the C2-C3 level where there is a piel-se-majhomka canal stenosis stable. 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 No acute or post traumatic sequelae. CT CERVICAL SPINE: Chronic spondylosis and facet arthrosis without fracture or dislocation. Dictated by: Dictated on workstation # [id number]
[2017-03-21] MEDS ORDERED: TETANUS,DIPTH,PERTUSS P/F (BOOSTRIX) 0.5 ML VIAL IM STA (14:42)
[2017-03-21 14:51] LABS: BILIRUBIN,URINE NEGATIVE (NEGATIVE); KETONES,URINE NEGATIVE (NEGATIVE); LEUKOCYTE ESTERASE ,URINE 1+ (NEGATIVE); NITRITE,URINE NEGATIVE (NEGATIVE); PH,URINE 6 (5-9); PROTEIN,URINE 2+ (NEGATIVE); UROBILINOGEN,URINE 1 MG/DL (NORMAL)
[2017-03-21 14:59] LABS: WBC,URINE 0-2 /HPF
[2017-03-21] MEDS ORDERED: TRIM/SULFAMETH 160/800 (SEPTRA DS) TAB PO NR (15:15)
--- NOTE | 2017-03-21 15:26 | Diagnostic Imaging Report ---
INDICATION: Fall with left elbow pain. AP, oblique, and lateral views of the left elbow are obtained. FINDINGS: No fracture or acute bony abnormality is seen. IMPRESSION: Negative left elbow. Dictated by: Dictated on workstation # [id number]
--- NOTE | 2017-03-21 17:26 | History & Physical-Hospitalist ---
HPI History of Present Illness: HPI/Chief Complaint CC: Passed out HPI: Pt is an 82yoCM with a PMH of extensive cardiac disease (CABG x4, mechanical AVR, CAD s/p stenting, and pacemaker placement) who presents to the ER with CC of syncope. He reports he was laying on the cough just before lunch and stood up to walk to the kitchen when he passed out falling to the ground. He denies any preceding symptoms including palpitations, dizziness, tunnel vision, nausea, pain, etc. This was witness by his . There was no convulsing. He reports LOC for roughly 3 seconds and when he awoke he was completely oriented. He has a long history of dizziness and syncope. He had an episode of syncope this past winter while driving that ultimately lead to placement of a pacemaker but family and patient are unaware of the arrhythmia necessitating the pacemaker. Of note he was seen in his PCPs this week for evaluation of left elbow pain and swelling and was diagnosed with cellulitis and started on Cefuroxime. He has taken three doses and has noticed almost no improvement. He denies pain with elbow movement. Source: patient, family, RN/MD Exam Limitations: no limitations Date Seen 03/21/17 Time Seen by Provider: 15:20 Attending Physician Aubree Engle MD PCP Damian Irvin MD Referring Physician Date of Admission Mar 21, 2017 at 15:00 Home Medications & Allergies Home Medications Reviewed patient Home Medication Reconciliation Form Allergies Allergies Coded Allergies No Known Drug Allergies (Verified01/01/08) Past Jlxmfan-Ligugq-Dxbyxj Hx Patient Social History Marrital Status: Employed/Student: retired Alcohol Use: Denies Use Recreational Drug Use: No Smoking Status: Former Smoker Former Smoker, Quit: Sep 14, 1990 Type Used: Cigars Recent Foreign Travel: No Contact w/other who traveled: No Recent Hopitalizations: No Recent Infectious Disease Expo: No Immunizations Up To Date Date of Pneumonia Vaccine: Apr 14, 2016 Date of Influenza Vaccine: Apr 18, 2016 Seasonal Allergies Seasonal Allergies: No Surgeries Yes (CABG X4, CATARACTS, SKIN LESION REMOVED ON CHEST) Cardiac (mechanical AVR), CABG (4 vessel) Respiratory No Cardiovascular Yes (QUAD BYPASS, AND ONE STENT) Coronary Artery Disease, Heart Attack, Hypertension, Valvular Heart Disease Neurological No Reproductive System Hx Reproductive Disorders: No Sexually Transmitted Disease: No HIV/AIDS: No Gastrointestinal No Musculoskeletal No Endocrine History of Endocrine Disorders: No HEENT Hearing Impairment: Hard of Hearing Cancer Yes Skin Did You Recieve Any Treatments: No Psychosocial History of Psychiatric Problem: No Integumentary History of Skin or Integumenta: Yes (LESION OF CHEST WALL) Blood Transfusions History of Blood Disorders: No Adverse Reaction to a Blood Tr: No Family Medical History Significant Family History: No Pertinent Family Hx Review of Systems Constitutional: No chills, No fever, No weakness EENTM: No blurred vision, No double vision, No mouth pain, No throat pain Respiratory: cough, No dyspnea on exertion, No phlegm, No short of breath Cardiovascular: No chest pain, No edema, Hx of Intervention, No palpitations, syncope Gastrointestinal: No abdominal pain, No constipation, No diarrhea, loss of appetite, No nausea, No vomiting Genitourinary: No dysuria, No frequency Musculoskeletal: joint pain (shoulder and elbow) Skin: hx of skin cancer, No lesions Psychiatric/Neurological: Denies Headache, Denies Numbness Physical Exam Physical Exam Vital Signs Vital Sign - Last 12Hours 03/21/17 12:35 Temp 97.4 Pulse 74 Resp 18 B/P (MAP) 152/88 Pulse Ox 98 Capillary Refill : Less Than 3 Seconds General Appearance: No Apparent Distress, WD/WN HEENT: PERRL/EOMI, Other (edentulous) Neck: Non Tender, Supple, No Carotid Bruit Respiratory: Chest Non Tender, Normal Breath Sounds, No Accessory Muscle Use, No Respiratory Distress Cardiovascular: Regular Rate, Rhythm, No Edema, No JVD, Systolic Murmur Gastrointestinal: Normal Bowel Sounds, Non Tender, Soft Extremity: Normal Capillary Refill, Non Tender, No Calf Tenderness, No Pedal Edema Neurologic/Psychiatric: Alert, Oriented x3, Normal Mood/Affect Skin: Normal Color, Warm/Dry Results Results/Procedures Lab Laboratory Tests 03/21/17 12:40 Radiology IMPRESSION: CT HEAD: Stable chronic old ischemic and senescent sequelae, old nasal bone deformity. No acute or post traumatic sequelae. CT CERVICAL SPINE: Chronic spondylosis and facet arthrosis without fracture or dislocation. CXR IMPRESSION: No acute-appearing abnormality. ELBOW XR IMPRESSION: Negative left elbow. Assessment/Plan Admission Diagnosis Syncope Diagnosis/Problems Diagnosis/Problems (1) Syncope Status: Acute Assessment & Plan: Very concerning given bouts of v-tach and long history of arrhythmias Will get orthostatics as well Consider echo in AM Fall precautions Monitor on tele (2) Ventricular tachycardia Status: Acute Assessment & Plan: Multiple episodes 10-20 beats of v-tach on tele in ED Concerning this is etiology of syncope Will consult cardiology for further recommendations given extensive history of complete heart block, 3 second arrests on holter, and now recurrent v-tach Will monitor overnight in the ICU on telemetry Interrogate pacemaker (3) Cellulitis of left elbow Status: Acute Assessment & Plan: Elbow xr shows no abnormalities, no signs on exam of abscess Will adjust abx to cover MRSA given reported no to minimal improvement over past two days (4) HTN (hypertension) Status: Chronic Assessment & Plan: Continue home meds of Losartan Will hold HCTZ currently as only taking intermittently (5) S/P CABG x 4 Status: Chronic Assessment & Plan: Continue on ASA, statin (6) CAD (coronary artery disease) Status: Chronic Assessment & Plan: Continue on ASA, statin (7) Aortic valve replaced Status: Chronic Assessment & Plan: Continue on warfarin with goal of 2.5-3.5 (8) Chronic anticoagulation Status: Chronic Assessment & Plan: INR within goal at 2.8 (9) Prophylactic measure Assessment & Plan: On warfarin for AVR, will continue- no need for further DVT ppx Saline lock Fall precautions Heart healthy diet AUBREE ENGLE MD Mar 21, 2017 17:26
[2017-03-21] MEDS ORDERED: warFARin 5 MG (COUMADIN) TAB PO SCH (18:00)
[2017-03-21] MEDS ORDERED: 1/2 NS IV SOLUTION 1,000 ML IV SCH (18:45)
[2017-03-21] MEDS ORDERED: CATHETER FLUSH 10 ML SYR IV PRN (19:00)
[2017-03-21] MEDS ORDERED: ACETAMINOPHEN 325 MG TABLET/CAPLET (TYLENOL) PO PRN (19:45)
[2017-03-21] MEDS ORDERED: RT-ALBUTEROL SULF 2.5 MG/3 ML PRE-MIX VIAL IH PRN (20:30)
[2017-03-21] MEDS ORDERED: AMIODARONE FOR BOLUS 300 MG in D5W 100 ML IVPB 100 ML IV ONE (21:30)
[2017-03-21] MEDS ORDERED: AMIODARONE 450 MG/9 ML (CORDARONE) VIAL IV ONE (21:36)
[2017-03-21] MEDS ORDERED: D5W 100 ML IVPB 100 ML IV ONE (21:37)
[2017-03-21 22:17] LABS: MAGNESIUM 1.8 MG/DL (1.8-2.4)
[2017-03-21] MEDS: meTOprolol 5 MG/5 ML (LOPRESSOR) VIAL IV SCH (22:20)
[2017-03-21 22:30] LABS: TROPONIN I < 0.30 NG/ML (<0.30)
[2017-03-21] MEDS: AMIODARONE IV SOLUTION 200 ML IV SCH (22:37)
[2017-03-22] VITALS (16 sets, daily range): BP systolic 102–144; BP diastolic 54–97
[2017-03-22] MEDS ORDERED: D5W IV SOLUTION (EXCEL) 250 ML IV ONE (01:48)
[2017-03-22] MEDS ORDERED: AMIODARONE 450 MG/9 ML (CORDARONE) VIAL IV ONE (01:48)
[2017-03-22] MEDS: meTOprolol 5 MG/5 ML (LOPRESSOR) VIAL IV SCH ×3 (03:58→10:10)
[2017-03-22] MEDS: AMIODARONE IV SOLUTION 200 ML IV SCH (04:53)
[2017-03-22 05:11] LABS: BASOPHILS % (AUTO) 0 % (0-10); EOSINOPHILS % (AUTO) 1 % (0-10); LYMPHOCYTES # (AUTO) 1.5 X 10^3 (1.0-4.0); LYMPHOCYTES % (AUTO) 19 % (12-44); MEAN CORPUSCULAR HEMOGLOBIN 30 PG (25-34); MEAN CORPUSCULAR HGB CONC 34 G/DL (32-36); MEAN CORPUSCULAR VOLUME 88 FL (80-99); MEAN PLATELET VOLUME 10.8 FL (7.4-10.4); MONOCYTES % (AUTO) 13 % (0-12); NEUTROPHILS # (AUTO) 5.1 X 10^3 (1.8-7.8); NEUTROPHILS % (AUTO) 67 % (42-75); PLATELET COUNT 166 10^3/uL (130-400); RED BLOOD COUNT 4.27 10^6/uL (4.35-5.85); RED CELL DISTRIBUTION WIDTH 13.8 % (10.0-14.5); WHITE BLOOD COUNT 7.6 10^3/uL (4.3-11.0)
[2017-03-22 05:22] LABS: INR 2.6 (0.8-1.4); PROTHROMBIN TIME PATIENT 27.9 SEC (12.2-14.7)
[2017-03-22 05:38] LABS: ALANINE AMINOTRANSFERASE 17 U/L (0-55); ALBUMIN 3.4 GM/DL (3.2-4.5); ANION GAP 11 MMOL/L (5-14); ASPARTATE AMINO TRANSFERASE 23 U/L (5-34); BILIRUBIN,TOTAL 1.2 MG/DL (0.1-1.0); BLOOD UREA NITROGEN 22 MG/DL (7-18); BUN/CREATININE RATIO 18; CARBON DIOXIDE 20 MMOL/L (21-32); CHLORIDE 105 MMOL/L (98-107); CREATININE SERUM 1.23 MG/DL (0.60-1.30); GFR ESTIMATED 56; GLUCOSE 121 MG/DL (70-105); POTASSIUM 3.8 MMOL/L (3.6-5.0); SODIUM 136 MMOL/L (135-145)
[2017-03-22 05:44] LABS: TROPONIN I < 0.30 NG/ML (<0.30)
[2017-03-22] MEDS ORDERED: MAGNESIUM 1 GM/100 ML IVPB 100 ML IV SCH (06:00)
[2017-03-22] MEDS ORDERED: POTASSIUM CL 10MEQ/50ML IVPB 50 ML IV SCH (06:00)
[2017-03-22] MEDS ORDERED: KCL 20 MEQ TAB (K-DUR) PO SCH (06:00)
[2017-03-22] MEDS ORDERED: TRIM/SULFAMETH 160/800 (SEPTRA DS) TAB PO SCH (07:00)
[2017-03-22] MEDS ORDERED: VENlafaxine XR 75 MG (EFFEXOR XR) CAP PO SCH (07:00)
--- NOTE | 2017-03-22 08:41 | Diagnostic Imaging Report ---
Portable erect AP chest at 5:00 AM. INDICATION: Shortness of breath. There is shallow inspiration when compared with the prior exam of 03/21/2017. Allowing for this technical factor the heart size is within normal limits and stable when compared to the prior exam. The left hemidiaphragm is not as distinct as noted on the previous study, and there could be an element of mild pneumonia/atelectasis and/or fluid in this area. Clinical followup is recommended. The left upper lung and right lung are generally clear. The mediastinum is not widened. The osseous structures are intact. The sternotomy wires and the left-sided pacemaker noted previously are again evident and no different. IMPRESSION: 1. The left hemidiaphragm is now indistinct. There could be a small amount of atelectasis/infiltrate and fluid involving the left lung base. Clinical followup is recommended. 2. The overall appearance of the chest is otherwise stable. Dictated by: Dictated on workstation # [id number]
[2017-03-22] MEDS ORDERED: LOSARTAN 50 MG (COZAAR) TAB PO SCH (09:00)
[2017-03-22] MEDS ORDERED: SIMVASTATIN PO SCH (09:00)
[2017-03-22] MEDS ORDERED: DESVENLAFAXINE SUCC 50 MG (PRISTIQ) TAB NON-FORMULARY PO SCH (09:00)
[2017-03-22] MEDS ORDERED: [UNRECOGNIZED DRUG - OTHER] PO SCH (09:00)
[2017-03-22] MEDS ORDERED: warFARin 5 MG (COUMADIN) TAB PO SCH ×2 (09:00→10:30)
[2017-03-22] MEDS ORDERED: EZETIMIBE PO SCH (09:00)
[2017-03-22] MEDS ORDERED: AMIODARONE INJECTION 450 MG in D5W IV SOLUTION (EXCEL) 250 ML IV SCH (09:45)
--- NOTE | 2017-03-22 11:09 | Consultation-Cardiology ---
HPI-Cardiology Cardiology Consultation Date of Consultation 03/22/17 Date of Admission Time Seen by Provider: 08:00 Indication: syncope HPI 82 years old gentleman with history of aortic valve replacement, coronary artery disease, had history of multiple syncope mainly orthostatic. Treated conservatively until earlier this year where he was noted to have multiple episodes of complete heart Block resulted in dual-chamber pacemaker implant. Patient has been doing well. He was laying down on and up and standing up and starting to walk he had a syncopal episode found himself on the floor, with an injury to his head. Denied any chest pain, no shortness of breath or palpitation. Patient was admitted to the hospital and while he was in the hospital there was suspicion of ventricular tachycardia, having multiple episode of wide-complex tachycardia. It appeared to be ventricular paced rhythm with old episodes. He denied any chest pain. No pedal edema. No claudications. Home Medications & Allergies Allergies: Coded Allergies: No Known Drug Allergies (Verified , 01/01/08) Home Medication List Reviewed: Yes MPQ-Dichar-Xdblnb Hx Patient Social History Marital Status: Employed/Student: retired Alcohol Use: Denies Use Recreational Drug Use: No Smoking Status: Former Smoker Former smoker/When Quit: Aug 15, 1975 Type Used: Cigars Recent Foreign Travel: No Recent Infectious Disease Expo: No Recent Hopitalizations: No Physical Abuse Screen: No Sexual Abuse: No Immunizations Up To Date Date of Pneumonia Vaccine: Apr 14, 2016 Date of Influenza Vaccine: Apr 18, 2016 Past Medical History past medical history as discussed below Family Medical History Significant Family History: No Pertinent Family Hx Family History: 19 MOTHER Diabetes mellitus G8 BROTHER Myocardial infarction G8 BROTHER Myocardial infarction G8 SISTER Cardiovascular disease Parkinson's disease G8 SISTER Cardiovascular disease Constitutional: see HPI, dizziness, weakness EENTM: see HPI, no symptoms reported Respiratory: no symptoms reported, see HPI Cardiovascular: see HPI, No chest pain, No edema, No Hx of Intervention, No palpitations, syncope, No vascular heart diseas, No other Gastrointestinal: no symptoms reported, see HPI Genitourinary: no symptoms reported, see HPI Musculoskeletal: no symptoms reported, see HPI Skin: no symptoms reported, see HPI Psychiatric/Neurological: No Symptoms Reported, See HPI Reviewed Test Results Reviewed Test Results Lab Laboratory Tests Test 03/21/17 12:40 03/21/17 12:57 03/21/17 14:35 03/21/17 21:51 Range/Units White Blood Count 12.2 H 4.3-11.0 10^3/uL Red Blood Count 4.40 4.35-5.85 10^6/uL Hemoglobin 13.3 13.3-17.7 G/DL Hematocrit 39 L 40-54 % Mean Corpuscular Volume 89 80-99 FL Mean Corpuscular Hemoglobin 30 25-34 PG Mean Corpuscular Hemoglobin Concent 34 32-36 G/DL Red Cell Distribution Width 13.9 10.0-14.5 % Platelet Count 184 130-400 10^3/uL Mean Platelet Volume 10.5 H 7.4-10.4 FL Neutrophils (%) (Auto) 66 42-75 % Lymphocytes (%) (Auto) 18 12-44 % Monocytes (%) (Auto) 16 H 0-12 % Eosinophils (%) (Auto) 0 0-10 % Basophils (%) (Auto) 0 0-10 % Neutrophils # (Auto) 8.0 H 1.8-7.8 X 10^3 Lymphocytes # (Auto) 2.2 1.0-4.0 X 10^3 Monocytes # (Auto) 2.0 H 0.0-1.0 X 10^3 Eosinophils # (Auto) 0.0 0.0-0.3 10^3/uL Basophils # (Auto) 0.0 0.0-0.1 10^3/uL Prothrombin Time 29.0 H 12.2-14.7 SEC INR Comment 2.8 H 0.8-1.4 Activated Partial Thromboplast Time 52 H 24-35 SEC Sodium Level 136 135-145 MMOL/L Potassium Level 4.0 3.6-5.0 MMOL/L Chloride Level 101 98-107 MMOL/L Carbon Dioxide Level 25 21-32 MMOL/L Anion Gap 10 5-14 MMOL/L Blood Urea Nitrogen 31 H 7-18 MG/DL Creatinine 1.64 H 0.60-1.30 MG/DL Estimat Glomerular Filtration Rate 40 BUN/Creatinine Ratio 19 Glucose Level 147 H 70-105 MG/DL Calcium Level 8.5 8.5-10.1 MG/DL Total Bilirubin 1.2 H 0.1-1.0 MG/DL Aspartate Amino Transf (AST/SGOT) 20 5-34 U/L Alanine Aminotransferase (ALT/SGPT) 22 0-55 U/L Alkaline Phosphatase 42 40-136 U/L Troponin I < 0.30 < 0.30 <0.30 NG/ML Total Protein 6.8 6.4-8.2 GM/DL Albumin 3.9 3.2-4.5 GM/DL TSH [place] Testing 3.12 0.35-4.94 UIU/ML Glucometer 166 H 70-110 MG/DL Urine Color TAB H Urine Clarity SLIGHTLY CLOUDY Urine pH 6 5-9 Urine Specific [place] 1.015 L 1.016-1.022 Urine Protein 2+ H NEGATIVE Urine Glucose (UA) NEGATIVE NEGATIVE Urine Ketones NEGATIVE NEGATIVE Urine Nitrite NEGATIVE NEGATIVE Urine Bilirubin NEGATIVE NEGATIVE Urine Urobilinogen 1 NORMAL MG/DL Urine Leukocyte Esterase 1+ H NEGATIVE Urine RBC (Auto) 1+ H NEGATIVE Urine RBC 0-2 /HPF Urine WBC 0-2 /HPF Urine Squamous Epithelial Cells NONE /HPF Urine Crystals NONE /LPF Urine Bacteria NEGATIVE /HPF Urine Casts PRESENT /LPF Urine Hyaline Casts 5-10 H /LPF Urine Mucus SMALL H /LPF Urine Culture Indicated NO Magnesium Level 1.8 1.8-2.4 MG/DL Test 03/22/17 04:22 Range/Units White Blood Count 7.6 4.3-11.0 10^3/uL Red Blood Count 4.27 L 4.35-5.85 10^6/uL Hemoglobin 12.9 L 13.3-17.7 G/DL Hematocrit 38 L 40-54 % Mean Corpuscular Volume 88 80-99 FL Mean Corpuscular Hemoglobin 30 25-34 PG Mean Corpuscular Hemoglobin Concent 34 32-36 G/DL Red Cell Distribution Width 13.8 10.0-14.5 % Platelet Count 166 130-400 10^3/uL Mean Platelet Volume 10.8 H 7.4-10.4 FL Neutrophils (%) (Auto) 67 42-75 % Lymphocytes (%) (Auto) 19 12-44 % Monocytes (%) (Auto) 13 H 0-12 % Eosinophils (%) (Auto) 1 0-10 % Basophils (%) (Auto) 0 0-10 % Neutrophils # (Auto) 5.1 1.8-7.8 X 10^3 Lymphocytes # (Auto) 1.5 1.0-4.0 X 10^3 Monocytes # (Auto) 1.0 0.0-1.0 X 10^3 Eosinophils # (Auto) 0.0 0.0-0.3 10^3/uL Basophils # (Auto) 0.0 0.0-0.1 10^3/uL Prothrombin Time 27.9 H 12.2-14.7 SEC INR Comment 2.6 H 0.8-1.4 Sodium Level 136 135-145 MMOL/L Potassium Level 3.8 3.6-5.0 MMOL/L Chloride Level 105 98-107 MMOL/L Carbon Dioxide Level 20 L 21-32 MMOL/L Anion Gap 11 5-14 MMOL/L Blood Urea Nitrogen 22 H 7-18 MG/DL Creatinine 1.23 0.60-1.30 MG/DL Estimat Glomerular Filtration Rate 56 BUN/Creatinine Ratio 18 Glucose Level 121 H 70-105 MG/DL Calcium Level 8.0 L 8.5-10.1 MG/DL Phosphorus Level 2.0 L 2.3-4.7 MG/DL Magnesium Level 2.0 1.8-2.4 MG/DL Total Bilirubin 1.2 H 0.1-1.0 MG/DL Aspartate Amino Transf (AST/SGOT) 23 5-34 U/L Alanine Aminotransferase (ALT/SGPT) 17 0-55 U/L Alkaline Phosphatase 40 40-136 U/L Troponin I < 0.30 <0.30 NG/ML Total Protein 6.0 L 6.4-8.2 GM/DL Albumin 3.4 3.2-4.5 GM/DL Physical Exam Vital Signs Vital Sign - Last 12Hours 03/21/17 03/21/17 12:35 17:45 Temp 97.4 Pulse 74 Resp 18 B/P (MAP) 152/88 Pulse Ox 98 O2 Delivery Room Air Capillary Refill : Less Than 3 Seconds General Appearance: WD/WN, Mild Distress Eyes: Bilateral Eye Normal Inspection, Bilateral Eye PERRL, Bilateral Eye EOMI HEENT: PERRL/EOMI, TMs Normal, Normal ENT Inspection, Pharynx Normal Neck: Full Range of Motion, Normal Inspection, Non Tender, Supple, Carotid Bruit Respiratory: Chest Non Tender, Lungs Clear, Normal Breath Sounds, No Accessory Muscle Use, No Respiratory Distress Cardiovascular: Regular Rate, Rhythm, No Edema, No JVD, Normal Peripheral Pulses, Systolic Murmur, Gallop/S3 Gastrointestinal: Normal Bowel Sounds, No Organomegaly, No Pulsatile Mass, Non Tender, Soft Back: Normal Inspection, No CVA Tenderness, No Vertebral Tenderness Extremity: Normal Capillary Refill, Normal Inspection, Normal Range of Motion, Non Tender, No Calf Tenderness, No Pedal Edema Neurologic/Psychiatric: Alert, Oriented x3, No Motor/Sensory Deficits, Normal Mood/Affect Skin: Normal Color, Warm/Dry Lymphatic: No Adenopathy A/P-Cardiology Admission Diagnosis Syncope Tachycardia Coronary artery disease Aortic valve replacement Assessment/Plan Syncope, history of intermittent complete heart block and permanent pacemaker implant, had a syncopal episode resulted in head trauma. I will interrogate his pacemaker, educated on using VASYL hose and aggressive hydration. Multiple episodes of tachycardia with ventricular paced rhythm, questionable paroxysmal atrial tachycardia as a cause of his ventricular paced. I will start him on low-dose beta kristopher and evaluate his tolerance and response. Mild leukocytosis. Followed and managed by primary care physician History of aortic valve replacement and replacement of the ascending aorta and aortic arch for a large ascending thoracic aortic aneurysm in 1999. Last echocardiogram was in 05/24/15. It showed well preserved globular left ventricular systolic function with an ejection fraction of 50- 55%, paradoxical septal motion, adequately functioning mechanical prosthetic valve, mild MR, mod enlargement of ascending aorta and left atrium, continue to monitor closely Coronary artery disease with a history of coronary artery bypass surgery. Cardiac catheterization of 01/03/08 showed patent composite left internal mammary artery and saphenous vein graft to left anterior descending artery, two obtuse marginal arteries and the distal right coronary artery. The arteries to which the grafts go exhibited moderate diffuse disease. Proximal portions of the [place] coronary arteries were occluded. treated conservatively. Hyperlipidemia being treated with statin therapy. This is being followed by Dr. Irvin. Chronic anticoagulation with warfarin, followed by Dr Irvni History of abdominal aortic aneurysm on CT angiography of the abdominal aorta in 2002. On this CT angiography, some dissection was reported as well, and the patient saw Dr. Jung of Cardiovascular Surgery, who felt that the dissection was old. On subsequent ultrasonography by Dr. 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 On abdominal CT with contrast of July 2009, there was a calcified aorta without aneurysm. In August 2009 ultrasonography did not report an significant aneurysm. 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 On 06/30 u/s showed mild dilatation of distal abdominal aorta (measuring 3.1 cm); this remains unchanged on abd aortic u/s of 05/10/15 that showed AAA measuring 2.9x3.1. Last abd ao u/s on 04/18/16: AAA measuring 3 cm in max dimension, unchanged compared to previous studyI'll continue to monitor Cholelithiasis, quiescent Diverticulosis of the sigmoid colon on abdominal CT with contrast of July 2009. Hypertension, currently well controlled. Mild to mod carotid arterial disease per ultrasonography of 02/10/16 H/o restless legs, currently stable Clinical Quality Measures DVT/VTE Risk/Contraindication: Risk Factor Score Per Nursin RFS Level Per Nursing on Admit: 2=Moderate CHANTALE NAVARRO MD Mar 22, 2017 11:09
--- NOTE | 2017-03-22 11:13 | Progress Note-Hospitalist ---
Subjective HPI/CC On Admission Date Seen by Provider: Mar 22, 2017 Time Seen by Provider: 10:30 CC: Passed out HPI: Pt is an 82yoCM with a PMH of extensive cardiac disease (CABG x4, mechanical AVR, CAD s/p stenting, and pacemaker placement) who presents to the ER with CC of syncope. He reports he was laying on the cough just before lunch and stood up to walk to the kitchen when he passed out falling to the ground. He denies any preceding symptoms including palpitations, dizziness, tunnel vision, nausea, pain, etc. This was witness by his . There was no convulsing. He reports LOC for roughly 3 seconds and when he awoke he was completely oriented. He has a long history of dizziness and syncope. He had an episode of syncope this past winter while driving that ultimately lead to placement of a pacemaker but family and patient are unaware of the arrhythmia necessitating the pacemaker. Of note he was seen in his PCPs this week for evaluation of left elbow pain and swelling and was diagnosed with cellulitis and started on Cefuroxime. He has taken three doses and has noticed almost no improvement. He denies pain with elbow movement. Subjective/Events-last exam Mr. Shah states he feels well and wishes to go home. He denies lightheadedness chest pain or shortness of breath. He continues to exhibit nonsustained runs of wide complex tachycardia on his monitor with same morphology as his pacedrhythm and a pacemaker artifact before each beat of tachycardia. He has no awareness during these episodes and continues normal conversation during her interview with multiple events being noted during our discussion. He does report some neck stiffness and yesterday after his fall he had a pins and needle sensation radiating to both rollovers. This is presently gone. He denies any elbow pain. Objective Exam Vital Signs Vital Sign - Last 12Hours 03/21/17 03/21/17 12:35 17:45 Temp 97.4 Pulse 74 Resp 18 B/P (MAP) 152/88 Pulse Ox 98 O2 Delivery Room Air Capillary Refill : Less Than 3 Seconds General Appearance: No Apparent Distress, WD/WN Respiratory: Chest Non Tender, Lungs Clear, Normal Breath Sounds, No Accessory Muscle Use, No Respiratory Distress Cardiovascular: Regular Rate, Rhythm, No Edema, No Gallop, No JVD, Normal Peripheral Pulses, Other (soft 1 to 2/6 systolic ejection murmur heard best left lower sternal border no S3 or S4 appreciated. Frequent bouts of tachycardia are noted.) Extremity: Other (compared to this Saturday there is less swelling and erythema noted over the left anserine bursa area. The patient does however have more swelling and erythema over the volar aspect of his forearm there is no induration it is a little bit warm but nontender to palpation. Sensation is intact to light touch.) Results/Procedures Lab Laboratory Tests 03/21/17 12:40 03/22/17 04:22 Assessment/Plan Assessment and Plan Assess & Plan/Chief Complaint 1. Syncope with current wide-complex tachycardia that has more than appearance of a pacemaker sensing error then ventricular tachycardia but will defer to cardiology. Continue ICU monitoring and patient is scheduled for pacemaker interrogation later today. 2. History of sick sinus syndrome requiring pacemaker placement in the past with known underlying coronary artery disease and previous as I recall preserved systolic function echocardiogram is being repeated later today per Dr. Briseno. as I recall the patient also has a past history of nonsustained ventricular tachycardia. 3. Left olecranon bursitis we'll continue treat as an infectious process although it is little bit atypical the patient does not have more pain to palpation raising and noninfectious inflammatory etiology. On Bactrim we'll continue to monitor daily INRs and if rising may need to reduce Coumadin. 4. History of hypertension long-standing which has been well controlled. Diagnosis/Problems Diagnosis/Problems (1) Syncope Status: Acute Assessment & Plan: Very concerning given bouts of v-tach and long history of arrhythmias Will get orthostatics as well Consider echo in AM Fall precautions Monitor on tele (2) Ventricular tachycardia Status: Acute Assessment & Plan: Multiple episodes 10-20 beats of v-tach on tele in ED Concerning this is etiology of syncope Will consult cardiology for further recommendations given extensive history of complete heart block, 3 second arrests on holter, and now recurrent v-tach Will monitor overnight in the ICU on telemetry Interrogate pacemaker (3) Cellulitis of left elbow Status: Acute Assessment & Plan: Elbow xr shows no abnormalities, no signs on exam of abscess Will adjust abx to cover MRSA given reported no to minimal improvement over past two days (4) HTN (hypertension) Status: Chronic Assessment & Plan: Continue home meds of Losartan Will hold HCTZ currently as only taking intermittently (5) S/P CABG x 4 Status: Chronic Assessment & Plan: Continue on ASA, statin (6) CAD (coronary artery disease) Status: Chronic Assessment & Plan: Continue on ASA, statin (7) Aortic valve replaced Status: Chronic Assessment & Plan: Continue on warfarin with goal of 2.5-3.5 (8) Chronic anticoagulation Status: Chronic Assessment & Plan: INR within goal at 2.8 (9) Prophylactic measure Assessment & Plan: On warfarin for AVR, will continue- no need for further DVT ppx Saline lock Fall precautions Heart healthy diet KATHY LOREDO MD Mar 22, 2017 11:13
[2017-03-22] MEDS ORDERED: NITR0.4T SL (13:34)
[2017-03-22] MEDS ORDERED: CEFD300C3 PO (13:34)
[2017-03-22] MEDS ORDERED: METO-351 PO (14:25)
[2017-03-22] MEDS ORDERED: SULF1TAB35 PO (15:38)
--- NOTE | 2017-03-22 15:40 | Discharge Instructions ---
Discharge Instructions Discharge Medications New, Converted or Re-Newed RX: Transmitted to Pharmacy Patient Instructions Patient Instructions Please continue to take your medications as prescribed. You should keep your appointment as scheduled with Dr. Irvin and follow up with Dr Olson in the next 1-2 weeks. If your symptoms return or worsen please return to the ER for evaluation. Activity & Diet Discharge Diet: Low Sodium Diet, Cardiac Diet Activity as Tolerated: Yes WILL ENGLE MD Mar 22, 2017 15:40
[2017-03-22] MEDS ORDERED: eZETimibe 10 MG (ZETIA) TABLET PO SCH (21:00)
[2017-03-22] MEDS ORDERED: SIMvastatin 20 MG (ZOCOR) TAB PO SCH (21:00)
[2017-03-23] MEDS ORDERED: warFARin 5 MG (COUMADIN) TAB PO SCH ×2 (09:00→18:00)
[2017-03-26] MEDS ORDERED: warFARin 2.5 MG (COUMADIN) TAB PO SCH (09:00)
--- NOTE | 2017-03-28 16:48 | Physician Query-Final Dx ---
OKSANA CARUSO 03/28/17 1648: Final Diagnosis Give Final Diagnosis Please give Final Diagnosis WILL ENGLE MD 04/01/17 1416: Final Diagnosis Give Final Diagnosis Syncope OKSANA CARUSO Mar 28, 2017 16:48 WILL ENGLE MD Apr 01, 2017 14:16
== END 2017-03-22 16:20 | disposition home or self-care (01) | DRG 309 ==
LOC: EDUNIT# 12:35 → ER 12:37 → UNDOADMOB 15:00 → OBSVTOIN 15:00 → ICU 15:00 → INTOOBSV 15:00 → ICU 17:45 → OBSVTOIN 21:30 → UNDODISIN 03-22 16:20
PROVIDERS: ADMIT Family Medicine; ATTEND Family Medicine
DX: I47.2 Ventricular tachycardia (principal); L03.114 Cellulitis of left upper limb; I10 Essential (primary) hypertension; I25.10 Atherosclerotic heart disease of native coronary artery without angina pectoris; D72.829 Elevated white blood cell count, unspecified; E78.5 Hyperlipidemia, unspecified; K80.20 Calculus of gallbladder without cholecystitis without obstruction; K57.30 Diverticulosis of large intestine without perforation or abscess without bleeding; I65.23 Occlusion and stenosis of bilateral carotid arteries; M70.22 Olecranon bursitis, left elbow; G25.81 Restless legs syndrome; Z95.1 Presence of aortocoronary bypass graft; Z95.2 Presence of prosthetic heart valve; Z95.0 Presence of cardiac pacemaker; Z79.01 Long term (current) use of anticoagulants; Z87.891 Personal history of nicotine dependence; Z95.5 Presence of coronary angioplasty implant and graft; I25.2 Old myocardial infarction; Z91.81 History of falling; Z23 Encounter for immunization
CPT/HCPCS: 36415; 70450; 71010; 71020; 72125; 73080; 80053; 81000; 82962; 83735; 84100; 84443; 84484; 85025; 85027; 85610; 85730; 90471; 90715; 93005; 93306; 96360; 96361

== ENCOUNTER → 2017-09-13 | Outpatient (CLI) | payer MEDICARE, OTHER ==
[~2017-09-13] MED LIST changes: +CEFD300C3 PO; +METO-351 PO; +NITR0.4T SL; +SULF1TAB35 PO
--- NOTE | 2017-09-13 12:07 | Diagnostic Imaging Report ---
INDICATION: Abdominal aortic aneurysm. Abdominal aortic sonography is performed in the routine fashion. The abdominal aorta is mildly aneurysmal measuring 3.3 x 3.2 cm, this compares to previous measurement of 3.0 x 2.7 cm. Iliac origins are not well seen. IMPRESSION: Abdominal aorta is mildly aneurysmal measuring 3.2 x 3.2 cm. This does represent increase in size compared to the prior study of 04/18/2016 in which it measured 3.0 x 2.7 cm. Suggest continued follow-up. Dictated by: Dictated on workstation # [id number]
== END ==
LOC: RAD 07:45
PROVIDERS: ATTEND Nurse Practitioner Family
DX: I71.4 Abdominal aortic aneurysm, without rupture (principal)
CPT/HCPCS: 76775

== ENCOUNTER → 2018-03-28 | Outpatient (CLI) | payer MEDICARE, OTHER ==
--- NOTE | 2018-03-28 10:26 | Diagnostic Imaging Report ---
CLINICAL INDICATION: Patient with history of abdominal aortic aneurysm. EXAM: Ultrasound of abdominal aorta. COMPARISON: Ultrasound of the abdominal aorta dated 09/13/2017. FINDINGS: Distal abdominal aortic aneurysm is again seen which measures 2.8 cm x 3.2 cm which previously measured 3.3 cm x 3.2 cm. The proximal and mid abdominal aorta is obscured and not able to be evaluated. The right and left common iliac arteries measure 1.1 cm x 1.3 cm and 1.1 cm x 1.2 cm, respectively. IMPRESSION: Patient with distal abdominal aortic aneurysm with slight change in measurement, it now measuring slightly smaller on this exam. Differences in size may be due to differences in measuring technique. Dictated by: Dictated on workstation # [id number]
== END ==
LOC: RAD 08:15
PROVIDERS: ATTEND Nurse Practitioner Family
DX: I71.4 Abdominal aortic aneurysm, without rupture (principal)
CPT/HCPCS: 76775

== ENCOUNTER 2019-12-19 07:04 | Inpatient (IN) | payer MEDICARE, OTHER ==
[~2019-12-19] VITALS: Ht 180.3 cm; Wt 88.7 kg
[~2019-12-19 07:04] MED LIST changes: -TRAM50TA2 PO; +TRM50T PO
[2019-12-19] MEDS ORDERED: NS IV 500 ML 500 ML IV ONE (07:31)
[2019-12-19 07:53] LABS: BASOPHILS % (AUTO) 0 % (0-10); EOSINOPHILS % (AUTO) 0 % (0-10); HEMATOCRIT 40 % (40-54); HEMOGLOBIN 13.3 G/DL (13.3-17.7); LYMPHOCYTES # (AUTO) 0.8 X 10^3 (1.0-4.0); LYMPHOCYTES % (AUTO) 7 % (12-44); MEAN CORPUSCULAR HEMOGLOBIN 30 PG (25-34); MEAN CORPUSCULAR HGB CONC 33 G/DL (32-36); MEAN CORPUSCULAR VOLUME 88 FL (80-99); MEAN PLATELET VOLUME 10.8 FL (7.4-10.4); MONOCYTES # (AUTO) 1.1 X 10^3 (0.0-1.0); MONOCYTES % (AUTO) 10 % (0-12); NEUTROPHILS # (AUTO) 9.5 X 10^3 (1.8-7.8); NEUTROPHILS % (AUTO) 83 % (42-75); PLATELET COUNT 202 10^3/uL (130-400); RED CELL DISTRIBUTION WIDTH 14.9 % (10.0-14.5); WHITE BLOOD COUNT 11.5 10^3/uL (4.3-11.0)
[2019-12-19 08:04] LABS: ALBUMIN 4.3 GM/DL (3.2-4.5); POTASSIUM 4.2 MMOL/L (3.6-5.0)
[2019-12-19 08:05] LABS: CALCIUM 9.4 MG/DL (8.5-10.1)
[2019-12-19 08:06] LABS: TOTAL PROTEIN 7.7 GM/DL (6.4-8.2)
--- NOTE | 2019-12-19 08:07 | Diagnostic Imaging Report ---
EXAMINATION: Chest radiograph, portable AP view. DATE: 12/19/2019 7:57 AM hours. INDICATION: 84-year-old male, vomiting. COMPARISON: March 22, 2017. FINDINGS: There is a left-sided cardiac assist device with right atrial and right ventricular leads. The leads appear intact. There are median tenotomy wires. Stable overall appearance of the cardiomediastinal silhouette. There is no identified pneumothorax. There are streaky opacities in the left medial lung base. IMPRESSION: 1. No identified interval acute cardiopulmonary abnormality. 2. Streaky opacities in the left medial lung base are unchanged since March 22, 2017. Dictated by: Dictated on workstation # [id number]
[2019-12-19 08:08] LABS: BILIRUBIN,TOTAL 0.8 MG/DL (0.1-1.0)
[2019-12-19 08:10] LABS: CREATININE SERUM 1.28 MG/DL (0.60-1.30)
--- NOTE | 2019-12-19 08:11 | ED Abdominal Pain ---
General Chief Complaint: Abdominal/GI Problems Stated Complaint: ABD PAIN Nursing Triage Note: Pt c/o becoming hot outside working yesterday and developed abdominal pain last night. Pt reports taking pepto bismol at approximately 0430 and then vomiting. Pt reports pain begins in the L groin area and radiates into the abdomen. Sepsis Screen: No Definite Risk Source of Information: Patient Exam Limitations: No Limitations History of Present Illness Date Seen by Provider: Dec 19, 2019 Time Seen by Provider: 07:12 Initial Comments Here with report of abdominal pain. Apparently started yesterday after working outside. Notes it is swollen in the lower abdomen and groin area. He is not sure what that is about. Has had difficult time all night. Last bowel movement yesterday and has not passed gas since. Did take some Pepto-Bismol at about 4:30 this morning and then vomited. He has been trying to drink Gatorade and fluids a nd is having difficulty with that. She is unsure if he has history of a hernia but does have swelling in the groin on the left. States he feels better since vomiting. Does have history of mechanical heart valve and is on Coumadin. Timing/Duration: 12-24 Hours Severity/Quality: Moderate Location: Generalized Abdomen Radiation: LLQ, Groin Associated Symptoms: No Back Pain, No Chest Pain, No Fever/Chills; Fatigue, Nausea/Vomiting; No Shortness of Air, No Syncope, No Weakness Allergies and Home Medications Allergies Coded Allergies: No Known Drug Allergies (Verified , 01/01/08) Home Medications Desvenlafaxine Succinate 50 Mg Tab.sr.24h, 50 MG PO DAILY, (Reported) Ezetimibe/Simvastatin 1 Each Tablet, 1 TAB PO DAILY, (Reported) Fish Oil/Borage/Flax/Om3,6,9#1 1,200 Mg Capsule, 1,200 MG PO DAILY, (Reported) Hydrochlorothiazide 25 Mg Tablet, 25 MG PO DAILY PRN for SWELLING, (Reported) Metoprolol Succinate 25 Mg Tab.er.24h, 25 MG PO DAILY Prescribed by: CHANTALE NAVARRO on 03/22/17 2570 Multivitamin 1 Each Tablet, 1 TAB PO DAILY, (Reported) Nitroglycerin 0.4 Mg Tab.subl, 0.4 MG SL UD PRN for CHEST PAIN, (Reported) Sulfamethoxazole/Trimethoprim 1 Each Tablet, 1 EA PO BID WITH MEALS Prescribed by: WILL WEINER on 03/22/17 1538 Warfarin Sodium 5 Mg Tablet, 5 MG PO , (Reported) Warfarin Sodium 5 Mg Tablet, 2.5 MG PO , (Reported) TAKES 1/2 (5MG) TABLET Patient Home Medication List Home Medication List Reviewed: Yes Review of Systems Review of Systems Constitutional: see HPI; No chills, No fever EENTM: No Symptoms Reported Respiratory: No Symptoms Reported Cardiovascular: Denies Chest Pain, Denies Edema Gastrointestinal: See HPI, Abdominal Pain, Nausea, Vomiting Genitourinary: No Symptoms Reported Musculoskeletal: no symptoms reported Skin: no symptoms reported All Other Systems Reviewed Negative Unless Noted: Yes Past Lwwjiyd-Awfcal-Ahvahd Hx Past Med/Social Hx: Reviewed Nursing Past Med/Soc Hx Patient Social History Alcohol Use: Denies Use Recreational Drug Use: No Smoking Status: Former Smoker Type Used: Cigars Former Smoker, Quit: Sep 14, 1990 2nd Hand Smoke Exposure: No Recent Foreign Travel: No Contact w/Someone Who Travel: No Recent Infectious Disease Expo: No Recent Hopitalizations: No Immunizations Up To Date Date of Pneumonia Vaccine: Apr 14, 2016 Date of Influenza Vaccine: Apr 18, 2016 Seasonal Allergies Seasonal Allergies: No Past Medical History Surgeries: Yes (CABG X4, CATARACTS, SKIN LESION REMOVED ON CHEST) Cardiac, CABG Respiratory: No Currently Using CPAP: No Currently Using BIPAP: No Cardiac: Yes (QUAD BYPASS, AND ONE STENT) Aneurysm, Coronary Artery Disease, Heart Attack, Hypertension, Valvular Heart Disease Neurological: No Reproductive Disorders: No Sexually Transmitted Disease: No HIV/AIDS: No Genitourinary: No Gastrointestinal: Yes Abdominal Hernia Musculoskeletal: No Endocrine: No HEENT: No Hearing Impairment: Hard of Hearing Cancer: Yes Skin Did You Recieve Any Treatments: No Psychosocial: No Integumentary: Yes (LESION OF CHEST WALL) Blood Disorders: No Adverse Reaction/Blood Tranf: No Family Medical History Reviewed Nursing Family Hx Cardiovascular disease G8 SISTER G8 SISTER Diabetes mellitus 19 MOTHER Myocardial infarction G8 BROTHER G8 BROTHER Parkinson's disease G8 SISTER No Pertinent Family Hx Physical Exam Vital Signs Vital Signs - First Documented 12/19/19 07:09 Temp 36.6 Pulse 82 Resp 22 B/P (MAP) 124/67 (86) Pulse Ox 99 O2 Delivery Room Air Capillary Refill : Less Than 3 Seconds Height/Weight/BMI Height: 5'11.00" Weight: 210lbs. 4.8oz. 95.030321jp; 27.00 BMI Method:Estimated General Appearance: WD/WN, no apparent distress HEENT: PERRL/EOMI, pharynx normal Neck: full range of motion, supple Respiratory: no respiratory distress, crackles (left base) Cardiovascular: regular rate, rhythm, other (mechanical valve click noted.) Gastrointestinal: soft, distended, tenderness (left groin area where there is obvious hernia), hernia (left groin and scrotum consistent with inguinal hernia) Extremities: non-tender, normal inspection Back: normal inspection, no CVA tenderness, no vertebral tenderness Neurologic/Psychiatric: alert, oriented x 3 Skin: normal color, warm/dry Focused Exam Lactate Level 12/19/19 07:30: Lactic Acid Level 1.29 Lactic Acid Level Laboratory Tests Test 12/19/19 07:30 Lactic Acid Level 1.29 MMOL/L (0.50-2.00) Progress/Results/Core Measures Results/Orders Lab Results Laboratory Tests Test 12/19/19 07:30 12/19/19 08:02 Range/Units White Blood Count 11.5 H 4.3-11.0 10^3/uL Red Blood Count 4.51 4.35-5.85 10^6/uL Hemoglobin 13.3 13.3-17.7 G/DL Hematocrit 40 40-54 % Mean Corpuscular Volume 88 80-99 FL Mean Corpuscular Hemoglobin 30 25-34 PG Mean Corpuscular Hemoglobin Concent 33 32-36 G/DL Red Cell Distribution Width 14.9 H 10.0-14.5 % Platelet Count 202 130-400 10^3/uL Mean Platelet Volume 10.8 H 7.4-10.4 FL Neutrophils (%) (Auto) 83 H 42-75 % Lymphocytes (%) (Auto) 7 L 12-44 % Monocytes (%) (Auto) 10 0-12 % Eosinophils (%) (Auto) 0 0-10 % Basophils (%) (Auto) 0 0-10 % Neutrophils # (Auto) 9.5 H 1.8-7.8 X 10^3 Lymphocytes # (Auto) 0.8 L 1.0-4.0 X 10^3 Monocytes # (Auto) 1.1 H 0.0-1.0 X 10^3 Eosinophils # (Auto) 0.0 0.0-0.3 10^3/uL Basophils # (Auto) 0.0 0.0-0.1 10^3/uL Neutrophils % (Manual) 82 % Lymphocytes % (Manual) 10 % Monocytes % (Manual) 4 % Reactive Lymphocytes 4 % Elliptocytes SLIGHT Sodium Level 138 135-145 MMOL/L Potassium Level 4.2 3.6-5.0 MMOL/L Chloride Level 99 98-107 MMOL/L Carbon Dioxide Level 28 21-32 MMOL/L Anion Gap 11 5-14 MMOL/L Blood Urea Nitrogen 29 H 7-18 MG/DL Creatinine 1.28 0.60-1.30 MG/DL Estimat Glomerular Filtration Rate 54 BUN/Creatinine Ratio 23 Glucose Level 156 H 70-105 MG/DL Lactic Acid Level 1.29 0.50-2.00 MMOL/L Calcium Level 9.4 8.5-10.1 MG/DL Corrected Calcium 9.2 8.5-10.1 MG/DL Total Bilirubin 0.8 0.1-1.0 MG/DL Aspartate Amino Transf (AST/SGOT) 24 5-34 U/L Alanine Aminotransferase (ALT/SGPT) 16 0-55 U/L Alkaline Phosphatase 43 40-136 U/L C-Reactive Protein High Sensitivity 0.39 0.00-0.50 MG/DL Total Protein 7.7 6.4-8.2 GM/DL Albumin 4.3 3.2-4.5 GM/DL Prothrombin Time 26.7 H 12.2-14.7 SEC INR Comment 2.3 H 0.8-1.4 Activated Partial Thromboplast Time 31 24-35 SEC My Orders Orders - STUART POPE MD Cbc With Automated Diff (12/19/19 07:31) Comprehensive Metabolic Panel (12/19/19 07:31) Hs C Reactive Protein (12/19/19 07:31) Lactic Acid Analyzer (12/19/19 07:31) Ct Abdomen/Pelvis Wo (12/19/19 07:31) Chest 1 View, Ap/Pa Only (12/19/19 07:31) Ed Iv/Invasive Line Start (12/19/19 07:31) Ns Iv 500 Ml (Sodium Chloride 0.9%) (12/19/19 07:31) Protime With Inr (12/19/19 07:40) Partial Thromboplastin Time (12/19/19 07:40) Manual Differential (12/19/19 07:30) Blood Culture (12/19/19 08:05) Medications Given in ED Current Medications Medications Dose Ordered Sig/Hayden Route Start Time Stop Time Status Last Admin Dose Admin Sodium Chloride 500 ml @ 0 mls/hr Q0M ONCE IV 12/19/19 07:31 12/19/19 07:34 DC 12/19/19 08:08 500 MLS/HR Vital Signs/I&O 12/19/19 07:09 Temp 36.6 Pulse 82 Resp 22 B/P (MAP) 124/67 (86) Pulse Ox 99 O2 Delivery Room Air Blood Pressure Mean: 86 Progress Progress Note : Progress Note Seen and evaluated. IV, labs, normal saline 500 mL bolus, CT abdomen and pelvis and chest x-ray ordered. Attempted reduction of the left inguinal hernia for several minutes variety of techniques including direct pressure and positioning. I was able to partially reduce the hernia that has remaining hernia that I am unable to reduce. We will evaluate the CT scan for incarceration which is a concern. Monitor patient. 0853: CT scan results noted. I did discuss the case with Dr. Lisa and he accepts patient in consult. We will do conservative management with nothing by mouth currently and consider advance to clear liquid diet later. I did discuss the case with Dr. Weiner and she accepts patient for admission, inpatient status. Discussed with patient who agrees with plan. Diagnostic Imaging Diagonstic Imaging: Xray Plain Films/CT/US/NM/MRI: chest Comments [facility]. [place], [place] NAME: ROSA ISELA BRAY [employer] [facility] REC#: [id number] PT STATUS: REG ER : 1935 PHYSICIAN: STUART POPE MD ADMIT DATE: 12/19/19/ER Draft Date of Exam:12/19/19 CHEST 1 VIEW, AP/PA ONLY EXAMINATION: Chest radiograph, portable AP view. DATE: 12/19/2019 7:57 AM hours. INDICATION: 84-year-old male, vomiting. COMPARISON: March 22, 2017. FINDINGS: There is a left-sided cardiac assist device with right atrial and right ventricular leads. The leads appear intact. There are median tenotomy wires. Stable overall appearance of the cardiomediastinal silhouette. There is no identified pneumothorax. There are streaky opacities in the left medial lung base. IMPRESSION: 1. No identified interval acute cardiopulmonary abnormality. 2. Streaky opacities in the left medial lung base are unchanged since March 22, 2017. Dictated on workstation # [id number] Dict: 12/19/19 0802 Trans: 12/19/19 08 CVB [id number] Interpreted by: YONI KELLEY MD Electronically signed by: Diagonstic Imaging: CT Plain Films/CT/US/NM/MRI: abdomen, pelvis Comments [facility] [place] [place] NAME: ROSA ISELA BRAY [facility] REC#: [id number] PT STATUS: REG ER : 1935 PHYSICIAN: STUART POPE MD ADMIT DATE: 12/19/19/ER Draft Date of Exam:12/19/19 CT ABDOMEN/PELVIS WO PROCEDURE: CT abdomen and pelvis without contrast. TECHNIQUE: Multiple contiguous axial images were obtained through the abdomen and pelvis without the use of intravenous contrast. Auto Exposure Controls were utilized during the CT exam to meet ALARA standards for radiation dose reduction. DATE: December 19, 2019. COMPARISON: CT abdomen and pelvis August 02, 2009. INDICATION: 84-year-old male, abdominal pain and vomiting. FINDINGS: There are limitations for evaluation of the abdominal organs, neoplastic processes, abscess, and limited evaluation of the vasculature relating to the lack of intravenous contrast. There are linear opacities in the left lower lobe which likely relate to scarring and/or atelectasis. The heart is mildly enlarged. There is no identified pericardial effusion. The liver is unremarkable in size and contour. There is cholelithiasis without evidence to suggest acute cholecystitis. There is no biliary ductal dilation. The main pancreatic duct is not grossly dilated. Noncontrast evaluation of the pancreatic parenchyma is unremarkable. The spleen is normal in size. The adrenal glands are unremarkable. There is mild renal atrophy bilaterally. There is a low-attenuation right renal lesion measuring 3.6 x 2.2 cm in size on axial image 32 consistent with a benign cyst. The urinary collecting systems are not distended. There is no identified renal or ureteral stone. There are pelvic calcifications consistent with phleboliths. The urinary bladder is grossly unremarkable in appearance on limited CT assessment. There is a left inguinal hernia containing segments of large bowel without associated obstruction specifically at the hernia site. There is no evidence to suggest acute appendicitis. There are abnormally distended segments of small bowel measuring up to approximately 3.2 cm in diameter. There are collapsed segments of distal small bowel. Findings are very suggestive of a mid small bowel obstruction. There is no identified pneumatosis. There is no portal venous gas. There is no identified free intraperitoneal air. There is no identified focal fluid collection or free pelvic fluid. There are atherosclerotic calcifications. There is an aneurysm of the infrarenal abdominal aorta measuring up to approximately 3.0 x 3.2 cm in size. There is no identified abnormally enlarged lymph node in the abdomen or pelvis which specifically meets CT size criteria for adenopathy. There are median sternotomy wires. There are multilevel degenerative changes of the spine. There are bilateral sacroiliac degenerative changes. There is an L3 vertebral body hemangioma. IMPRESSION: CT ABDOMEN AND PELVIS. 1. Dilated segments of small bowel with collapse segments of distal small bowel most suggestive of a mid small bowel obstruction. 2. Left inguinal hernia containing large bowel without evidence of obstruction specifically at the hernia site. 3. Infrarenal abdominal aortic aneurysm measuring up to 3.0 x 3.2 cm in size. 3. L3 vertebral body hemangioma. Dictated on workstation # [id number] Dict: 12/19/19 0803 Trans: 12/19/19 0826 [facility] [id number] Interpreted by: YONI KELLEY MD Electronically signed by: Reviewed: Reviewed by [facility] Departure Communication (Admissions) Time/Spoke to Admitting Phy: 08:53 Time/Spoke to Consulting Phy: 08:47 Impression Primary Impression: Small bowel obstruction Additional Impression: Left inguinal hernia Disposition: ADMITTED INPATIENT Condition: Stable Admissions Decision to Admit Reason: Admit from ER (General) Decision to Admit/Date: Dec 19, 2019 Time/Decision to Admit Time: 08:47 Departure-Patient Inst. Referrals: KATHY LOREDO MD (PCP/Family) Primary Care Physician STUART POPE MD Dec 19, 2019 08:11
[2019-12-19 08:23] LABS: INR 2.3 (0.8-1.4); PROTHROMBIN TIME PATIENT 26.7 SEC (12.2-14.7)
--- NOTE | 2019-12-19 08:26 | Diagnostic Imaging Report ---
PROCEDURE: CT abdomen and pelvis without contrast. TECHNIQUE: Multiple contiguous axial images were obtained through the abdomen and pelvis without the use of intravenous contrast. Auto Exposure Controls were utilized during the CT exam to meet ALARA standards for radiation dose reduction. DATE: December 19, 2019. COMPARISON: CT abdomen and pelvis August 02, 2009. INDICATION: 84-year-old male, abdominal pain and vomiting. FINDINGS: There are limitations for evaluation of the abdominal organs, neoplastic processes, abscess, and limited evaluation of the vasculature relating to the lack of intravenous contrast. There are linear opacities in the left lower lobe which likely relate to scarring and/or atelectasis. The heart is mildly enlarged. There is no identified pericardial effusion. The liver is unremarkable in size and contour. There is cholelithiasis without evidence to suggest acute cholecystitis. There is no biliary ductal dilation. The main pancreatic duct is not grossly dilated. Noncontrast evaluation of the pancreatic parenchyma is unremarkable. The spleen is normal in size. The adrenal glands are unremarkable. There is mild renal atrophy bilaterally. There is a low-attenuation right renal lesion measuring 3.6 x 2.2 cm in size on axial image 32 consistent with a benign cyst. The urinary collecting systems are not distended. There is no identified renal or ureteral stone. There are pelvic calcifications consistent with phleboliths. The urinary bladder is grossly unremarkable in appearance on limited CT assessment. There is a left inguinal hernia containing segments of large bowel without associated obstruction specifically at the hernia site. There is no evidence to suggest acute appendicitis. There are abnormally distended segments of small bowel measuring up to approximately 3.2 cm in diameter. There are collapsed segments of distal small bowel. Findings are very suggestive of a mid small bowel obstruction. There is no identified pneumatosis. There is no portal venous gas. There is no identified free intraperitoneal air. There is no identified focal fluid collection or free pelvic fluid. There are atherosclerotic calcifications. There is an aneurysm of the infrarenal abdominal aorta measuring up to approximately 3.0 x 3.2 cm in size. There is no identified abnormally enlarged lymph node in the abdomen or pelvis which specifically meets CT size criteria for adenopathy. There are median sternotomy wires. There are multilevel degenerative changes of the spine. There are bilateral sacroiliac degenerative changes. There is an L3 vertebral body hemangioma. IMPRESSION: CT ABDOMEN AND PELVIS. 1. Dilated segments of small bowel with collapse segments of distal small bowel most suggestive of a mid small bowel obstruction. 2. Left inguinal hernia containing large bowel without evidence of obstruction specifically at the hernia site. 3. Infrarenal abdominal aortic aneurysm measuring up to 3.0 x 3.2 cm in size. 3. L3 vertebral body hemangioma. Dictated by: Dictated on workstation # [id number]
[2019-12-19 08:40] LABS: LYMPHOCYTES % (MANUAL) 10 %; MONOCYTES % (MANUAL) 4 %; NEUTROPHILS % (MANUAL) 82 %; REACTIVE LYMPHOCYTES 4 %
[2019-12-19 08:41] LABS: ELLIPT/OVALOCYTES SLIGHT
--- NOTE | 2019-12-19 09:24 | NUR ---
ROSA ISELA BRAY admitted to room 409-1, with an admitting diagnosis of SBO, on 12/19/19 from ER via wheel chair, accompanied by staff .ROSA ISELA BARY introduced to surroundings, call light, bed controls, phone, TV, temperature control, lights, meal times, smoking policy, visitor policy, side rail policy, bathrooms and showers. Patient Rights given to patient in the handbook. ROSA ISELA BRAY verbalizes understanding that [facility] is not responsible for the loss or damage to any personal effects or valuables that are kept in the patients posession during their hospitalization. The following Patient Care Plans and discharge were discussed with the patient. ROSA ISELA BRAY verbalizes understanding of Interdisciplinary Patient Education. Patient was informed about the Rapid Response Team and its purpose.
[2019-12-19 09:30] VITALS: BP 103/57
[2019-12-19] MEDS ORDERED: ONDANSETRON 4 MG/2 ML (SDV) Z0FRAN IV PRN (11:30)
[2019-12-19] MEDS ORDERED: CATHETER FLUSH 10 ML SYR IV PRN (11:30)
--- NOTE | 2019-12-19 11:56 | History & Physical-Hospitalist ---
History of Present Illness HPI/Chief Complaint Pt is an 84yoCF with a PMH of HTN, aortic valve replacement and aortic arch replacement in 1999, CAD s/p CABG X4, and hernia who presented with abdominal pain. He states it started last night and he took pepto bismal for it without relief. He also took a couple of his nitro pills without relief. It continued to worsen and he decided to seek evaluation in the ER after vomiting around 430 this morning. He was found to have a left inguinal hernia and reduction was attempted in the ER. CT scan was done and revealed SBO. He is admitted for SBO. He is already passing gas and denies any abdominal pain. Source: patient Exam Limitations: no limitations Date Seen 12/19/19 Time Seen by a Provider: 11:56 Attending Physician Will Engle MD PCP Damian Irvin MD Referring Physician Date of Admission Dec 19, 2019 at 08:53 Home Medications & Allergies Home Medications Reviewed patient Home Medication Reconciliation performed by pharmacy medication reconciliations equipment engineering technician and/or nursing. Patients Allergies have been reviewed. Allergies Allergies Coded Allergies No Known Drug Allergies (Verified01/01/08) Past Qkpzdvj-Efikok-Ybbezd Hx Past Med/Social Hx: Reviewed Nursing Past Med/Soc Hx Patient Social History Marrital Status: Alcohol Use: Denies Use Recreational Drug Use: No Smoking Status: Former Smoker Former Smoker, Quit: Sep 14, 1990 Type Used: Cigars 2nd Hand Smoke Exposure: No Physical Abuse Screen: No Sexual Abuse: No Recent Foreign Travel: No Contact w/other who traveled: No Recent Hopitalizations: No Recent Infectious Disease Expo: No Immunizations Up To Date Date of Pneumonia Vaccine: Apr 14, 2016 Date of Influenza Vaccine: Apr 18, 2016 Seasonal Allergies Seasonal Allergies: No Past Medical History Surgeries: Cardiac, CABG Currently Using CPAP: No Currently Using BIPAP: No Cardiac: Aneurysm, Coronary Artery Disease, Heart Attack, Hypertension, Valvular Heart Disease Reproductive: No Sexually Transmitted Disease: No HIV/AIDS: No Gastrointestinal: Abdominal Hernia Hearing Impairment: Hard of Hearing Cancer: Skin Did You Recieve Any Treatments: No History of Blood Disorders: No Adverse Reaction to Blood Marques: No Family History Reviewed Nursing Family Hx Cardiovascular disease G8 SISTER G8 SISTER Diabetes mellitus 19 MOTHER Myocardial infarction G8 BROTHER G8 BROTHER Parkinson's disease G8 SISTER No Pertinent Family Hx Review of Systems Constitutional: No chills, No fever Respiratory: no symptoms reported Cardiovascular: No chest pain, No palpitations Gastrointestinal: abdominal pain; No constipation, No diarrhea; nausea, vomiting Genitourinary: no symptoms reported Musculoskeletal: no symptoms reported Skin: no symptoms reported Psychiatric/Neurological: No Symptoms Reported Physical Exam Physical Exam Vital Signs Vital Signs - First Documented 12/19/19 07:09 Temp 36.6 Pulse 82 Resp 22 B/P (MAP) 124/67 (86) Pulse Ox 99 O2 Delivery Room Air Capillary Refill : Less Than 3 Seconds Height, Weight, BMI Height: 5'11.00" Weight: 210lbs. 4.8oz. [id number]; 27.16 BMI Method:Estimated General Appearance: No Apparent Distress, Chronically ill HEENT: PERRL/EOMI, Moist Mucous Membranes; No Scleral Icterus (L), No Scleral Icterus (R) Neck: Normal Inspection, Supple Respiratory: Lungs Clear, No Accessory Muscle Use, No Respiratory Distress Cardiovascular: Regular Rate, Rhythm, No Murmur Gastrointestinal: Normal Bowel Sounds, Non Tender, Soft; No Distended, No Guarding Neurologic/Psychiatric: Alert, Oriented x3, Normal Mood/Affect Results Results/Procedures Labs Laboratory Tests 12/19/19 07:30 Patient resulted labs reviewed. Imaging: Reviewed Imaging Films, Reviewed Imaging Report Imaging [facility], [place] NAME: ROSA ISELA BRAY [facility] REC#: [id number] PT STATUS: ADM IN : 1935 PHYSICIAN: STUART POPE MD ADMIT DATE: 12/19/19 Signed Date of Exam:12/19/19 CT ABDOMEN/PELVIS WO PROCEDURE: CT abdomen and pelvis without contrast. TECHNIQUE: Multiple contiguous axial images were obtained through the abdomen and pelvis without the use of intravenous contrast. Auto Exposure Controls were utilized during the CT exam to meet ALARA standards for radiation dose reduction. DATE: December 19, 2019. COMPARISON: CT abdomen and pelvis August 02, 2009. INDICATION: 84-year-old male, abdominal pain and vomiting. FINDINGS: There are limitations for evaluation of the abdominal organs, neoplastic processes, abscess, and limited evaluation of the vasculature relating to the lack of intravenous contrast. There are linear opacities in the left lower lobe which likely relate to scarring and/or atelectasis. The heart is mildly enlarged. There is no identified pericardial effusion. The liver is unremarkable in size and contour. There is cholelithiasis without evidence to suggest acute cholecystitis. There is no biliary ductal dilation. The main pancreatic duct is not grossly dilated. Noncontrast evaluation of the pancreatic parenchyma is unremarkable. The spleen is normal in size. The adrenal glands are unremarkable. There is mild renal atrophy bilaterally. There is a low-attenuation right renal lesion measuring 3.6 x 2.2 cm in size on axial image 32 consistent with a benign cyst. The urinary collecting systems are not distended. There is no identified renal or ureteral stone. There are pelvic calcifications consistent with phleboliths. The urinary bladder is grossly unremarkable in appearance on limited CT assessment. There is a left inguinal hernia containing segments of large bowel without associated obstruction specifically at the hernia site. There is no evidence to suggest acute appendicitis. There are abnormally distended segments of small bowel measuring up to approximately 3.2 cm in diameter. There are collapsed segments of distal small bowel. Findings are very suggestive of a mid small bowel obstruction. There is no identified pneumatosis. There is no portal venous gas. There is no identified free intraperitoneal air. There is no identified focal fluid collection or free pelvic fluid. There are atherosclerotic calcifications. There is an aneurysm of the infrarenal abdominal aorta measuring up to approximately 3.0 x 3.2 cm in size. There is no identified abnormally enlarged lymph node in the abdomen or pelvis which specifically meets CT size criteria for adenopathy. There are median sternotomy wires. There are multilevel degenerative changes of the spine. There are bilateral sacroiliac degenerative changes. There is an L3 vertebral body hemangioma. IMPRESSION: CT ABDOMEN AND PELVIS. 1. Dilated segments of small bowel with collapse segments of distal small bowel most suggestive of a mid small bowel obstruction. 2. Left inguinal hernia containing large bowel without evidence of obstruction specifically at the hernia site. 3. Infrarenal abdominal aortic aneurysm measuring up to 3.0 x 3.2 cm in size. 3. L3 vertebral body hemangioma. Assessment/Plan Admission Diagnosis SBO Admission Status: Inpatient Order (span 2 midnights) Reason for Inpatient Admission: SBO Assessment and Plan SBO Inguinal hernia obstruction due to hernia reduced by surgery Already passing gas Will start clear liquid diet Attempt conservative management as he is high risk for surgery HTN PVD S/p valve replacement Continue home meds Diagnosis/Problems Diagnosis/Problems (1) S/P CABG x 4 Status: Chronic (2) Aortic valve replaced Status: Chronic (3) Left inguinal hernia Status: Acute (4) Small bowel obstruction Status: Acute (5) Chronic anticoagulation Status: Chronic (6) HTN (hypertension) Status: Chronic (7) CAD (coronary artery disease) Status: Chronic Clinical Quality Measures DVT/VTE Risk/Contraindication: Risk Factor Score Per Nursin RFS Level Per Nursing on Admit: 4+=Very High WILL ENGLE MD Dec 19, 2019 11:56
[2019-12-19 12:00] VITALS: BP 94/49
[2019-12-19] MEDS: LACTATED RINGERS 1,000 ML IV SCH ×2 (12:15→21:39)
[2019-12-19 15:40] VITALS: BP 101/45
--- NOTE | 2019-12-19 16:02 | Consultation - Surgery ---
History of Present Illness History of Present Illness Patient Consulted On(abdirizak/time) 12/19/19 15:56 Date Seen by Provider: Dec 19, 2019 Time Seen by Provider: 10:12 History of Present Illness Consult requested by Dr. Mills for small bowel obstruction Patient is an 84-year-old male who states that he's had a left inguinal hernia for about a year. Patient states isn't really causing much discomfort. 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 Patient's family started giving him. To try to hydrate him. Patient then began having some nausea and vomiting later. The pain continued to worsen the pain is in the lower abdomen. No radiation of pain. Patient states that about 430 this morning was gotten too much to where he went to the emergency department. Patient that time was found to have a large left inguinal hernia which was able to be partially reduced in the emergency department. He has a CT scan demonstrating a large left inguinal hernia with bowel contents and evidence of dilation of small bowel consistent with small bowel obstruction. Patient has not had any flatus or bowel movement at this time. His pain is no longer present. He is on having any nausea or vomiting at this time. He says he does not want any surgery was he absolutely has to. He is on anticoagulation due to heart valve. Patient is currently nothing by mouth. Thinking he has tried really made things better. Nothing he's tried really made things worse either. Allergies and Home Medications Allergies Coded Allergies: No Known Drug Allergies (Verified , 01/01/08) Home Medications Desvenlafaxine Succinate 50 Mg Tab.sr.24h, 50 MG PO DAILY, (Reported) Ezetimibe/Simvastatin 1 Each Tablet, 1 TAB PO DAILY, (Reported) Fish Oil/Borage/Flax/Om3,6,9#1 1,200 Mg Capsule, 1,200 MG PO DAILY, (Reported) Hydrochlorothiazide 25 Mg Tablet, 25 MG PO DAILY PRN for SWELLING, (Reported) Metoprolol Succinate 25 Mg Tab.er.24h, 25 MG PO DAILY Prescribed by: CHANTALE NAVARRO on 03/22/17 0619 Multivitamin 1 Each Tablet, 1 TAB PO DAILY, (Reported) Nitroglycerin 0.4 Mg Tab.subl, 0.4 MG SL UD PRN for CHEST PAIN, (Reported) Sulfamethoxazole/Trimethoprim 1 Each Tablet, 1 EA PO BID WITH MEALS Prescribed by: WILL ENGLE on 03/22/17 1538 Warfarin Sodium 5 Mg Tablet, 5 MG PO , (Reported) Warfarin Sodium 5 Mg Tablet, 2.5 MG PO , (Reported) TAKES 1/2 (5MG) TABLET Patient Home Medication List Home Medication List Reviewed: Yes Past Hdayelg-Fiixgi-Mexvzb Hx Patient Social History Alcohol Use: Denies Use Recreational Drug Use: No Smoking Status: Former Smoker Former Smoker, Quit: Sep 14, 1990 Type Used: Cigars 2nd Hand Smoke Exposure: No Recent Foreign Travel: No Contact w/Someone Who Travel: No Recent Infectious Disease Expo: No Recent Hopitalizations: No Physical Abuse Screen: No Sexual Abuse: No Immunizations Up To Date Date of Pneumonia Vaccine: Apr 14, 2016 Date of Influenza Vaccine: Apr 18, 2016 Seasonal Allergies Seasonal Allergies: No Surgeries History of Surgeries: Yes (CABG X4, CATARACTS, SKIN LESION REMOVED ON CHEST) Surgeries: Cardiac, CABG Respiratory History of Respiratory Disorde: No Cardiovascular History of Cardiac Disorders: Yes (QUAD BYPASS, AND ONE STENT) Cardiac Disorders: Aneurysm, Coronary Artery Disease, Heart Attack, Hypertension, Valvular Heart Disease Neurological History of Neurological Disord: No Reproductive System Hx Reproductive Disorders: No Sexually Transmitted Disease: No HIV/AIDS: No Genitourinary History of Genitourinary Disor: No Gastrointestinal History of Gastrointestinal Di: Yes Gastrointestinal Disorders: Abdominal Hernia Musculoskeletal History of Musculoskeletal Dis: No Endocrine History of Endocrine Disorders: No HEENT History of HEENT Disorders: No Hearing Impairment: Hard of Hearing Cancer History of Cancer: Yes Cancer: Skin Psychosocial History of Psychiatric Problem: No Integumentary History of Skin or Integumenta: Yes (LESION OF CHEST WALL) Blood Transfusions History of Blood Disorders: No Adverse Reaction to a Blood Tr: No Reviewed Nursing Assessment Reviewed/Agree w Nursing PMH: Yes Family Medical History Significant Family History: No Pertinent Family Hx Family Medial History: Cardiovascular disease G8 SISTER G8 SISTER Diabetes mellitus 19 MOTHER Myocardial infarction G8 BROTHER G8 BROTHER Parkinson's disease G8 SISTER Review of Systems-General Constitutional: No chills, No diaphoresis; weakness EENTM: no symptoms reported; No blurred vision, No double vision Respiratory: No cough, No dyspnea on exertion Cardiovascular: No chest pain, No edema Gastrointestinal: abdominal pain (Mild lower abdomen), nausea, vomiting, other (Hernia left inguinal) Genitourinary: no symptoms reported Musculoskeletal: no symptoms reported; No back pain, No gout, No joint pain Skin: No change in color, No change in hair/nails Psychiatric/Neurological: Denies Anxiety, Denies Depressed All Other Systems Reviewed Negative Unless Noted: Yes (Negative excepted noted.) Physical Exam-General Problems Physical Exam Vital Signs Vital Signs - First Documented 12/19/19 07:09 Temp 36.6 Pulse 82 Resp 22 B/P (MAP) 124/67 (86) Pulse Ox 99 O2 Delivery Room Air Capillary Refill : Less Than 3 Seconds General Appearance: WD/WN, no apparent distress HEENT: PERRL/EOMI, normal ENT inspection Neck: non-tender, supple, normal inspection Respiratory: chest non-tender, no respiratory distress, no accessory muscle use Cardiovascular: regular rate, rhythm, no edema Gastrointestinal: non tender, soft, hernia (Left inguinal which I was able to be reduce) Rectal: deferred Back: normal inspection, no CVA tenderness Extremities: non-tender, normal inspection, no pedal edema 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, alert, normal mood/affect, oriented x 3 Skin: normal color, warm/dry Lymphatic: no adenopathy, other (Left inguinal hernia) Data Review Labs Laboratory Tests 12/19/19 07:30: White Blood Count 11.5H, Red Blood Count 4.51, Hemoglobin 13.3, Hematocrit 40, Mean Corpuscular Volume 88, Mean Corpuscular Hemoglobin 30, Mean Corpuscular Hemoglobin Concent 33, Red Cell Distribution Width 14.9H, Platelet Count 202, Mean Platelet Volume 10.8H, Neutrophils (%) (Auto) 83H, Lymphocytes (%) (Auto) 7L, Monocytes (%) (Auto) 10, Eosinophils (%) (Auto) 0, Basophils (%) (Auto) 0, Neutrophils # (Auto) 9.5H, Lymphocytes # (Auto) 0.8L, Monocytes # (Auto) 1.1H, Eosinophils # (Auto) 0.0, Basophils # (Auto) 0.0, Neutrophils % (Manual) 82, Lymphocytes % (Manual) 10, Monocytes % (Manual) 4, Reactive Lymphocytes 4, Elliptocytes SLIGHT, Sodium Level 138, Potassium Level 4.2, Chloride Level 99, Carbon Dioxide Level 28, Anion Gap 11, Blood Urea Nitrogen 29H, Creatinine 1.28, Estimat Glomerular Filtration Rate 54, BUN/Creatinine Ratio 23, Glucose Level 156H, Lactic Acid Level 1.29, Calcium Level 9.4, Corrected Calcium 9.2, Total Bilirubin 0.8, Aspartate Amino Transf (AST/SGOT) 24, Alanine Aminotransferase (ALT/SGPT) 16, Alkaline Phosphatase 43, C-Reactive Protein High Sensitivity 0.39, Total Protein 7.7, Albumin 4.3 12/19/19 08:02: Prothrombin Time 26.7H, INR Comment 2.3H, Activated Partial Thromboplast Time 31 Assessment/Plan Assessment/Plan Assessment/Plan Left inguinal hernia Small bowel obstruction Long-term anticoagulation Patient is an 84-year-old male with CT scan demonstrating left inguinal hernia a nd small bowel obstruction. I feel that the small bowel obstruction was likely from small bowel being through the left inguinal hernia before it was reduced. We'll try conservative measures. If Patient starts passing flatus would slowly advance diet. Patient discussed that would likely benefit from elective repair if we do not have to have surgical intervention at this hospitalization. Will follow closely. Patient begins having nausea and vomiting would have NG tube placed. Patient and family agrees with plan. Clinical Quality Measures DVT/VTE Risk/Contraindication: Risk Factor Score Per Nursin RFS Level Per Nursing on Admit: 4+=Very High ALEXA PORTILLO DO Dec 19, 2019 16:02
[2019-12-19] MEDS ORDERED: warFARin 5 MG (COUMADIN) TAB PO SCH (18:00)
[2019-12-19 19:52] VITALS: BP 109/51
[2019-12-20 01:56] VITALS: BP 100/58
[2019-12-20 04:22] VITALS: BP 94/54
[2019-12-20] MEDS: LACTATED RINGERS 1,000 ML IV SCH (05:54)
[2019-12-20 06:03] LABS: BASOPHILS % (AUTO) 0 % (0-10); EOSINOPHILS # (AUTO) 0.2 10^3/uL (0.0-0.3); EOSINOPHILS % (AUTO) 5 % (0-10); HEMATOCRIT 36 % (40-54); HEMOGLOBIN 11.8 G/DL (13.3-17.7); LYMPHOCYTES # (AUTO) 1.3 X 10^3 (1.0-4.0); LYMPHOCYTES % (AUTO) 26 % (12-44); MEAN CORPUSCULAR HEMOGLOBIN 30 PG (25-34); MEAN CORPUSCULAR HGB CONC 33 G/DL (32-36); MEAN CORPUSCULAR VOLUME 89 FL (80-99); MEAN PLATELET VOLUME 10.8 FL (7.4-10.4); MONOCYTES # (AUTO) 0.7 X 10^3 (0.0-1.0); MONOCYTES % (AUTO) 15 % (0-12); NEUTROPHILS # (AUTO) 2.6 X 10^3 (1.8-7.8); NEUTROPHILS % (AUTO) 54 % (42-75); PLATELET COUNT 156 10^3/uL (130-400); RED CELL DISTRIBUTION WIDTH 14.7 % (10.0-14.5); WHITE BLOOD COUNT 4.9 10^3/uL (4.3-11.0)
[2019-12-20 06:20] LABS: ALANINE AMINOTRANSFERASE 14 U/L (0-55); ALBUMIN 3.3 GM/DL (3.2-4.5); ALKALINE PHOSPHATASE 35 U/L (40-136); BILIRUBIN,TOTAL 0.7 MG/DL (0.1-1.0); BUN/CREATININE RATIO 20; CALCIUM 7.9 MG/DL (8.5-10.1); CARBON DIOXIDE 26 MMOL/L (21-32); CHLORIDE 107 MMOL/L (98-107); CREATININE SERUM 0.98 MG/DL (0.60-1.30); GFR ESTIMATED > 60; GLUCOSE 109 MG/DL (70-105); POTASSIUM 3.6 MMOL/L (3.6-5.0); SODIUM 140 MMOL/L (135-145); TOTAL PROTEIN 5.5 GM/DL (6.4-8.2)
[2019-12-20 07:47] VITALS: BP 108/54
[2019-12-20 11:20] VITALS: BP 111/60
--- NOTE | 2019-12-20 11:24 | Discharge Inst-Simple/Standard ---
Discharge Inst-Standard Patient Instructions/Follow Up Plan of Care/Instructions/FU: Please continue to take your medications as written. Please follow up Dr Irvin in the next week and with Dr Lisa in 2 weeks. Activity as Tolerated: Yes Discharge Diet: Cardiac Diet Return to The Hospital For: Chest pain, shortness of breath, fever, nausea/vomting, abdominal pain, no BM or passing gas for >24 hours, if you feel you are getting worse. WILL ENGLE MD Dec 20, 2019 11:24
--- NOTE | 2019-12-20 11:28 | Discharge Summary ---
Diagnosis/Chief Complaint Date of Admission Dec 19, 2019 at 08:53 Date of Discharge Discharge Date: Dec 20, 2019 Admission Diagnosis [facility] Primary Care Kathy Loredo MD Discharge Diagnosis (1) S/P CABG x 4 Status: Chronic (2) Aortic valve replaced Status: Chronic (3) Left inguinal hernia Status: Acute (4) Small bowel obstruction Status: Acute (5) Chronic anticoagulation Status: Chronic (6) HTN (hypertension) Status: Chronic (7) CAD (coronary artery disease) Status: Chronic Discharge Summary Procedures/Consulations General Surgery- Dr Lisa Discharge Physical Exam Allergies: Coded Allergies: No Known Drug Allergies (Verified , 01/01/08) Vitals & I&Os Vital Signs Date Time Temp Pulse Resp B/P (MAP) Pulse Ox O2 Delivery O2 Flow Rate FiO2 12/20/19 11:20 37.2 76 18 111/60 (77) 96 Room Air General Appearance: No Apparent Distress, Chronically ill Respiratory: No Respiratory Distress Cardiovascular: Regular Rate, Rhythm, Systolic Murmur Gastrointestinal: Normal Bowel Sounds, Soft Neurologic/Psychiatric: Alert, Oriented x3 Hospital Course Pt was admitted due to a small bowel obstruction due to an inguinal hernia. He did much better than anticipated and had a quick resolution of his bowel function with reduction of the hernia. He was passing gas and no longer nauseated on the second day of admission. He was discharged home in stable condition at his request to follow up with Dr Loredo and Dr Lisa as an outpatient. Labs (last 24 hrs) Laboratory Tests 12/20/19 05:40: White Blood Count 4.9, Red Blood Count 3.99L, Hemoglobin 11.8L, Hematocrit 36L, Mean Corpuscular Volume 89, Mean Corpuscular Hemoglobin 30, Mean Corpuscular Hemoglobin Concent 33, Red Cell Distribution Width 14.7H, Platelet Count 156, Mean Platelet Volume 10.8H, Neutrophils (%) (Auto) 54, Lymphocytes (%) (Auto) 26, Monocytes (%) (Auto) 15H, Eosinophils (%) (Auto) 5, Basophils (%) (Auto) 0, Neutrophils # (Auto) 2.6, Lymphocytes # (Auto) 1.3, Monocytes # (Auto) 0.7, Eosinophils # (Auto) 0.2, Basophils # (Auto) 0.0, Sodium Level 140, Potassium Level 3.6, Chloride Level 107, Carbon Dioxide Level 26, Anion Gap 7, Blood Urea Nitrogen 20H, Creatinine 0.98, Estimat Glomerular Filtration Rate > 60, BUN/Creatinine Ratio 20, Glucose Level 109H, Calcium Level 7.9L, Corrected Calcium 8.5, Total Bilirubin 0.7, Aspartate Amino Transf (AST/SGOT) 19, Alanine Aminotransferase (ALT/SGPT) 14, Alkaline Phosphatase 35L, Total Protein 5.5L, Albumin 3.3 Patient resulted labs reviewed. Pending Labs Laboratory Tests 12/20/19 05:40: White Blood Count 4.9, Red Blood Count 3.99, Hemoglobin 11.8, Hematocrit 36, Mean Corpuscular Volume 89, Mean Corpuscular Hemoglobin 30, Mean Corpuscular Hemoglobin Concent 33, Red Cell Distribution Width 14.7, Platelet Count 156, Mean Platelet Volume 10.8, Neutrophils (%) (Auto) 54, Lymphocytes (%) (Auto) 26, Monocytes (%) (Auto) 15, Eosinophils (%) (Auto) 5, Basophils (%) (Auto) 0, Neutrophils # (Auto) 2.6, Lymphocytes # (Auto) 1.3, Monocytes # (Auto) 0.7, Eosinophils # (Auto) 0.2, Basophils # (Auto) 0.0, Sodium Level 140, Potassium Level 3.6, Chloride Level 107, Carbon Dioxide Level 26, Anion Gap 7, Blood Urea Nitrogen 20, Creatinine 0.98, Estimat Glomerular Filtration Rate > 60, BUN/Creatinine Ratio 20, Glucose Level 109, Calcium Level 7.9, Corrected Calcium 8.5, Total Bilirubin 0.7, Aspartate Amino Transf (AST/SGOT) 19, Alanine Aminotransferase (ALT/SGPT) 14, Alkaline Phosphatase 35, Total Protein 5.5, Albumin 3.3 Imaging: Reviewed Imaging Films, Reviewed Imaging Report Discussion & Recommendations Discharge Planning: >30 minutes discharge planning Discharge Home Medications: Active Scripts Active Bactrim Ds Tablet (Sulfamethoxazole/Trimethoprim) 1 Each Tablet 1 Ea PO BID WITH MEALS 6 Days Toprol Xl (Metoprolol Succinate) 25 Mg Tab.er.24h 25 Mg PO DAILY Reported Nitrostat (Nitroglycerin) 0.4 Mg Tab.subl 0.4 Mg SL UD PRN Warfarin Sodium 5 Mg Tablet 2.5 Mg PO WE TAKES 1/2 (5MG) TABLET Hydrochlorothiazide 25 Mg Tablet 25 Mg PO DAILY PRN Marble 3-6-9 1,200 mg Softgel (Fish Oil/Borage/Flax/Om3,6,9#1) 1,200 Mg Capsule 1,200 Mg PO DAILY Multi Vitamin Daily (Multivitamin) 1 Each Tablet 1 Tab PO DAILY Warfarin Sodium 5 Mg Tablet 5 Mg PO SUMOFRSA Vytorin 10-20 Mg Tablet (Ezetimibe/Simvastatin) 1 Each Tablet 1 Tab PO DAILY Pristiq (Desvenlafaxine Succinate) 50 Mg Tab.sr.24h 50 Mg PO DAILY Instructions to patient/family Please see electronic discharge instructions given to patient. Clinical Quality Measures DVT/VTE Risk/Contraindication: Risk Factor Score Per Nursin RFS Level Per Nursing on Admit: 4+=Very High Copy Copies To 1: KATHY LOREDO MD, KATELYN M MD Dec 20, 2019 11:28
--- NOTE | 2019-12-20 12:02 | NUR ---
RX AND INSTRUCTIONS REVIEWED AND VERBALIZED UNDERSTANDING. DC'D PER WC WITH SON.
--- NOTE | 2019-12-20 22:13 | Progress Note - Surgery ---
Subjective Date Seen by a Provider: Dec 20, 2019 Time Seen by a Provider: 11:25 Subjective/Events-last exam Patient states he is doing well. He is having flatus. He has no abdominal pain. He is wanting to go home. He denies any nausea or vomiting. Denies any fever sweats chills shortness of breath or chest pain. Focused Exam Lactate Level 12/19/19 07:30: Lactic Acid Level 1.29 Objective Exam Vital Signs Date Time Temp Pulse Resp B/P (MAP) Pulse Ox O2 Delivery O2 Flow Rate FiO2 12/20/19 11:20 37.2 76 18 111/60 (77) 96 Room Air 12/20/19 08:00 95 Room Air 12/20/19 07:47 37.1 77 18 108/54 (72) 95 Room Air 12/20/19 04:22 36.5 94 19 94/54 (67) 98 Room Air 12/20/19 01:56 100/58 (72) 12/20/19 00:02 37.4 91 19 96 Room Air I & O 12/20/19 07:00 Intake Total 3300 ml Output Total 1700 ml Balance 1600 ml Capillary Refill : Less Than 3 SecondsLess Than 3 Seconds General Appearance: No Apparent Distress, Chronically ill HEENT: PERRL/EOMI, Moist Mucous Membranes; No Scleral Icterus (L), No Scleral Icterus (R) Neck: Normal Inspection, Supple Respiratory: No Respiratory Distress Cardiovascular: Regular Rate, Rhythm, Systolic Murmur Gastrointestinal: non tender, soft, hernia (Left inguinal ) Extremity: Normal Inspection, Non Tender Neurologic/Psychiatric: Alert, Oriented x3, No Motor/Sensory Deficits, Normal Mood/Affect Skin: Normal Color, Warm/Dry Lymphatic: No Adenopathy, Other (Left inguinal hernia) Results Lab Laboratory Tests 12/20/19 05:40: White Blood Count 4.9, Red Blood Count 3.99L, Hemoglobin 11.8L, Hematocrit 36L, Mean Corpuscular Volume 89, Mean Corpuscular Hemoglobin 30, Mean Corpuscular Hemoglobin Concent 33, Red Cell Distribution Width 14.7H, Platelet Count 156, Mean Platelet Volume 10.8H, Neutrophils (%) (Auto) 54, Lymphocytes (%) (Auto) 26, Monocytes (%) (Auto) 15H, Eosinophils (%) (Auto) 5, Basophils (%) (Auto) 0, Neutrophils # (Auto) 2.6, Lymphocytes # (Auto) 1.3, Monocytes # (Auto) 0.7, Eosinophils # (Auto) 0.2, Basophils # (Auto) 0.0, Sodium Level 140, Potassium Level 3.6, Chloride Level 107, Carbon Dioxide Level 26, Anion Gap 7, Blood Urea Nitrogen 20H, Creatinine 0.98, Estimat Glomerular Filtration Rate > 60, BUN/Creatinine Ratio 20, Glucose Level 109H, Calcium Level 7.9L, Corrected Calcium 8.5, Total Bilirubin 0.7, Aspartate Amino Transf (AST/SGOT) 19, Alanine Aminotransferase (ALT/SGPT) 14, Alkaline Phosphatase 35L, Total Protein 5.5L, Albumin 3.3 Microbiology 12/19/19 Blood Culture - Preliminary, Resulted No growth Assessment/Plan Assessment/Plan Assessment/Plan Left inguinal hernia Small bowel obstruction Long-term anticoagulation Patient is an 84-year-old male with CT scan demonstrating left inguinal hernia and small bowel obstruction. I feel that the small bowel obstruction was likely from small bowel being through the left inguinal hernia before it was reduced. He was passing flatus and started on clear liquid diet. Patient's been tolerating diet. He has no abdominal pain. I do not feel there is any bowel compromise. Patient was discussed that we'll consider elective repair of left inguinal hernia. She is wanting to go home. I'll have follow-up in one week. Patient and son agree with plan. Clinical Quality Measures DVT/VTE Risk/Contraindication: Risk Factor Score Per Nursin RFS Level Per Nursing on Admit: 4+=Very High ALEXA PORTILLO DO Dec 20, 2019 22:13
== END 2019-12-20 12:04 | disposition home or self-care (01) | DRG 395 ==
LOC: EDUNIT# 07:04 → ER 07:05 → 4TH 08:53
PROVIDERS: ADMIT Family Medicine; ATTEND Family Medicine
PROC: 0YQ Anatomical Regions, Lower Extremities, Repair (ICD-10-PCS; principal; 2019-12-19)
DX: K40.30 Unilateral inguinal hernia, with obstruction, without gangrene, not specified as recurrent (principal); I25.10 Atherosclerotic heart disease of native coronary artery without angina pectoris; I10 Essential (primary) hypertension; I73.9 Peripheral vascular disease, unspecified; I25.2 Old myocardial infarction; Z95.1 Presence of aortocoronary bypass graft; Z95.5 Presence of coronary angioplasty implant and graft; Z87.891 Personal history of nicotine dependence; Z79.01 Long term (current) use of anticoagulants; Z95.2 Presence of prosthetic heart valve
CPT/HCPCS: 36415; 71045; 74176; 80053; 83605; 85007; 85025; 85027; 85610; 85730; 86141; 87040

== ENCOUNTER 2020-03-28 05:46 | Outpatient (CLI) | payer MEDICARE ==
[~2020-03-28] VITALS: Ht 180.3 cm; Wt 90.0 kg
[2020-03-28] MEDS ORDERED: MTP25TSR PO (13:09)
[2020-03-28] MEDS ORDERED: DESV50TA PO (13:09)
[2020-03-28] MEDS ORDERED: EZET1TAB65 PO (13:09)
[2020-03-28] MEDS ORDERED: MULT-1136 PO (13:09)
== END 2020-03-28 14:36 | disposition home or self-care (01) ==
LOC: PREOP 05:46
PROVIDERS: ATTEND Surgery
DX: Z01.818 Encounter for other preprocedural examination (principal)

== ENCOUNTER 2020-03-31 07:51 | Day surgery (SDC) | payer MEDICARE, OTHER ==
[~2020-03-31] VITALS: Ht 180.3 cm; Wt 90.0 kg
[~2020-03-31 07:51] MED LIST changes: +EZET1TAB65 PO; +MTP25TSR PO; +MULT-1136 PO
[2020-03-31 07:55] VITALS: BP 139/71
[2020-03-31] MEDS ORDERED: BUP/EPI 0.25% 1:200,000 (MARCAINE) 30 ML VIAL ONE (07:57)
[2020-03-31] MEDS ORDERED: LACTATED RINGERS 1,000 ML IV PRN (07:59)
[2020-03-31] MEDS ORDERED: ceFAZolin 2 GM IV Premixed 50 ML IV ONE (08:00)
[2020-03-31 08:32] VITALS: BP 139/71
== END 2020-03-31 08:32 | disposition home or self-care (01) ==
LOC: SDC 07:51
PROVIDERS: ATTEND Surgery
DX: K40.90 Unilateral inguinal hernia, without obstruction or gangrene, not specified as recurrent (principal); Z53.9 Procedure and treatment not carried out, unspecified reason

== ENCOUNTER → 2020-04-15 | Outpatient (CLI) | payer MEDICARE | LOC: CARD 13:48 | PROVIDERS: ATTEND Internal Medicine | DX: I08.3 Combined rheumatic disorders of mitral, aortic and tricuspid valves (principal); I25.10 Atherosclerotic heart disease of native coronary artery without angina pectoris | CPT/HCPCS: 93306 ==

== ENCOUNTER 2020-08-02 05:38 | Outpatient (RCR) | payer MEDICARE | END 2020-08-02 15:31 | disposition home or self-care (01) | LOC: PREOP 05:38 | PROVIDERS: ATTEND Specialist | DX: Z01.818 Encounter for other preprocedural examination (principal); H26.491 Other secondary cataract, right eye ==

== ENCOUNTER 2020-08-05 07:59 | Day surgery (SDC) | payer MEDICARE ==
[~2020-08-05] VITALS: Ht 180 cm; Wt 90.0 kg
[2020-08-05 08:00] VITALS: BP 101/61
[2020-08-05] MEDS ORDERED: PHENYLEPHRINE 10% OPHTH (NEO-SYN) 5 ML BTL OU PRN (08:45)
[2020-08-05] MEDS ORDERED: TROPICAMIDE 1% OPH SOLN (MYDRIACYL) 15 ML BTL OU PRN (08:45)
[2020-08-05] MEDS ORDERED: TETRACAINE 0.5% OPHTH SOLN 4 ML BTL (SINGLE DOSE ONLY) OU PRN (08:45)
--- NOTE | 2020-08-05 08:58 | Ophthalmologist Pre-Op Note ---
Pre-Operative Progress Note H&P Reviewed The H&P was reviewed, patient examined and no changes noted. Date H&P Reviewed: Aug 05, 2020 Time H&P Reviewed: 08:58 Pre-Op Dx Secondary Cataract, Right Eye GIULIANO OLIVAREZ MD Aug 05, 2020 08:58
--- NOTE | 2020-08-05 09:42 | Ophthalmology Operative Report ---
YAG Capsulotomy PREOPERATIVE DIAGNOSIS: Secondary Cataract Right Eye POSTOPERATIVE DIAGNOSIS: Secondary Cataract Right Eye PROCEDURE: YAG Capsulotomy, right eye SURGEON: Sundar Olivarez ANESTHESIA: Topical anesthesia COMPLICATIONS: None ESTIMATED BLOOD LOSS: Minimal DESCRIPTION OF PROCEDURE: After proper informed consent was obtained, the patient's, a 85 male, right eye received one drop of Tropicamide and one drop of Tetracaine. The patient was then placed at the YAG laser and using a power of [3.5 ] millijoules and [17 ] bursts were used to fashion a central capsulotomy. The patient tolerated the procedure well without complications. SUNDAR OLIVAREZ MD Aug 05, 2020 09:42
== END 2020-08-05 09:25 ==
LOC: SDC 07:59
PROVIDERS: ATTEND Specialist
DX: H26.491 Other secondary cataract, right eye (principal)

== ENCOUNTER 2020-08-10 02:29 | Inpatient (IN) | payer MEDICARE ==
[~2020-08-10] VITALS: Ht 177.8 cm; Wt 86.2 kg
[2020-08-10] VITALS (12 sets, daily range): BP systolic 84–130; BP diastolic 48–69
[2020-08-10] MEDS ORDERED: KETOROLAC 30 MG/ML VIAL IVP STA (02:54)
[2020-08-10] MEDS ORDERED: LACTATED RINGERS 1,000 ML IV ONE (03:00)
[2020-08-10] MEDS ORDERED: ONDANSETRON 4 MG/2 ML (SDV) Z0FRAN IVP ONE (03:00)
--- NOTE | 2020-08-10 03:03 | ED Abdominal Pain ---
General Chief Complaint: Abdominal/GI Problems Stated Complaint: LEFT LOWER ABD PAIN,VOMITING Source of Information: Patient (HARD OF HEARING) History of Present Illness Date Seen by Provider: Aug 10, 2020 Time Seen by Provider: 02:45 Initial Comments PT ARRIVES VIA POV FROM HOME C/O LEFT LOWER ABDOMINAL PAIN --BEGAN TONKARINA HAS LONGSTANDING HERNIA IN LEFT GROIN AREA, STATES PAIN IS IN THIS AREA AND RADIATES TO LEFT FLANK AREA, BUT NOW HAS MOVED TO MIDLINE--SUPRAPUBIC AREA STATES HE NORMALLY CAN PUSH THE HERNIA BACK IN, BUT TONIGHT HE COULD NOT C/O NAUSEA AND VOMITED X 2-3 TONIGHT HAD SMALL BM 08/09/20 NO FEVER NO DIFFICULTY URINATING NO PRIOR ABDOMINAL SURGERIES PT HAD SMALL BOWEL OBSTRUCTION DUE TO THIS HERNIA 12/2019, WAS ABLE TO REDUCE HERNIA AND BOWEL OBSTRUCTION RESOLVED. WAS SCHEDULED TO HAVE SURGERY TO REPAIR THE HERNIA, BUT DID NOT HAVE SURGERY PT HAS MECHANICAL AORTIC VALVE AND IS ON CHRONIC ANTICOAGULATION, PT WITH CAD AND CABG X 4, AND PACEMAKER PT HAD RIGHT YAG CAPSULOTOMY 08/05/20 PCP: DR. LOREDO Allergies and Home Medications Allergies Coded Allergies: No Known Drug Allergies (Verified , 01/01/08) Home Medications Desvenlafaxine Succinate 50 Mg Tab.er.24h, 50 MG PO DAILY, (Reported) Ezetimibe/Simvastatin 1 Each Tablet, 1 EACH PO DAILY, (Reported) Fish Oil/Borage/Flax/Om3,6,9#1 1,200 Mg Capsule, 1,200 MG PO DAILY, (Reported) Hydrochlorothiazide 25 Mg Tablet, 25 MG PO DAILY, (Reported) Metoprolol Succinate 25 Mg Tab.er.24h, 25 MG PO DAILY, (Reported) Multivitamin 1 Each Tablet, 1 EACH PO DAILY, (Reported) Nitroglycerin 0.4 Mg Tab.subl, 0.4 MG SL UD PRN for CHEST PAIN, (Reported) Warfarin Sodium 5 Mg Tablet, 5 MG PO SuFrSa, (Reported) Warfarin Sodium 5 Mg Tablet, 2.5 MG PO MoTuWeTh, (Reported) TAKES 1/2 (5MG) TABLET Patient Home Medication List Home Medication List Reviewed: Yes Review of Systems Review of Systems Constitutional: no symptoms reported Respiratory: No Symptoms Reported Cardiovascular: No Symptoms Reported Gastrointestinal: See HPI, Abdominal Pain, Nausea, Vomiting Genitourinary: No Symptoms Reported Musculoskeletal: no symptoms reported Skin: no symptoms reported Psychiatric/Neurological: No Symptoms Reported Endocrine: No Symptoms Reported Hematologic/Lymphatic: No Symptoms Reported (PT IS ON COUMADIN) Past Dpvhnca-Cuojxc-Xqfrhy Hx Past Med/Social Hx: Reviewed and Corrections made Patient Social History Alcohol Use: Denies Use Smoking Status: Former Smoker Type Used: Cigars Former Smoker, Quit: Sep 14, 1990 2nd Hand Smoke Exposure: No Recent Hopitalizations: No Immunizations Up To Date Date of Pneumonia Vaccine: Apr 14, 2016 Date of Influenza Vaccine: Apr 18, 2016 Seasonal Allergies Seasonal Allergies: No Past Medical History Surgeries: Yes (CABG X4,CATARACTS,SKIN LESION REM.CHEST;YAG R EYE 07/2019;AORTIC VALVE REP) Cardiac, CABG, Coronary Stent, Eye Surgery, Pacemaker, Valve Replacement Respiratory: No Currently Using CPAP: No Currently Using BIPAP: No Cardiac: Yes (4 VESSEL CABG;STENT X1;PACEMAKER;MECHANICAL AORTIC VALVE;) Aneurysm, Coronary Artery Disease, Heart Attack, High Cholesterol, Hypertension, Irregular Heartbeat, Valvular Heart Disease Neurological: No Reproductive Disorders: No Sexually Transmitted Disease: No HIV/AIDS: No Genitourinary: No Gastrointestinal: Yes (LEFT INGUINAL HERNIA) Abdominal Hernia, Diverticulosis, Gall Bladder Disease Musculoskeletal: Yes (FRACTURE LUMBAR TRANSVERSE PROCESSES 2013;RESTLESS LEG SYNDROME) Fractures Endocrine: No HEENT: Yes (BILATERAL CATARACTS; YAG CAPSULOTOMY R EYE 08/05/20) Cataract Hearing Impairment: Hard of Hearing Cancer: Yes Skin, Melanoma Did You Recieve Any Treatments: Yes What Type of Treatment Did You: Surgical Intervention LENTIGO MALIGNA MELANOMA REMOVED 2015 Psychosocial: No Integumentary: No Blood Disorders: No Adverse Reaction/Blood Tranf: No Family Medical History Cardiovascular disease G8 SISTER G8 SISTER Diabetes mellitus 19 MOTHER Myocardial infarction G8 BROTHER G8 BROTHER Parkinson's disease G8 SISTER No Pertinent Family Hx ADDITIONAL PAST MEDICAL AND SURGICAL HISTORY: -AORTIC VALVE REPLACEMENT, WITH REPLACEMENT OF AORTIC ARCH AND ASCENDING AORTA 1999 -KNOWN ABDOMINAL AORTIC ANEURYSM, 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--NO SURGERY -CAROTID DISEASE-NO INTERVENTION Physical Exam Vital Signs Vital Signs - First Documented 08/10/20 02:40 Temp 36.4 Pulse 84 Resp 18 B/P (MAP) 133/73 (93) Pulse Ox 97 O2 Delivery Room Air Capillary Refill : Height/Weight/BMI Height: 5'11.00" Weight: 210lbs. 4.8oz. 95.569556cj; 27.68 BMI Method:Estimated General Appearance: WD/WN, no apparent distress, other (HARD OF HEARING, BUT ABLE TO COMMUNICATE) Respiratory: normal breath sounds, no respiratory distress, no accessory muscle use Cardiovascular: regular rate, rhythm, no edema, no JVD, systolic murmur ([place]) Gastrointestinal: soft, tenderness, hernia (VERY LARGE HERNIA, VERY FIRM, TENDER--OVERLYING SUPRAPUBIC AREA, CROSSING MIDLINE AND LEFT GROIN AREA. 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 nml as tested, no motor/sensory deficits, alert, normal mood/affect, oriented x 3 Skin: normal color, warm/dry Progress/Results/Core Measures Results/Orders Lab Results Laboratory Tests Test 08/10/20 02:53 Range/Units White Blood Count 13.7 H 4.3-11.0 10^3/uL Red Blood Count 4.66 4.30-5.52 10^6/uL Hemoglobin 14.0 13.3-17.7 g/dL Hematocrit 42 40-54 % Mean Corpuscular Volume 90 80-99 fL Mean Corpuscular Hemoglobin 30 25-34 pg Mean Corpuscular Hemoglobin Concent 33 32-36 g/dL Red Cell Distribution Width 15.2 H 10.0-14.5 % Platelet Count 194 130-400 10^3/uL Mean Platelet Volume 10.9 9.0-12.2 fL Immature Granulocyte % (Auto) 0 % Neutrophils (%) (Auto) 90 H 42-75 % Lymphocytes (%) (Auto) 3 L 12-44 % Monocytes (%) (Auto) 7 0-12 % Eosinophils (%) (Auto) 0 0-10 % Basophils (%) (Auto) 0 0-10 % Neutrophils # (Auto) 12.3 H 1.8-7.8 10^3/uL Lymphocytes # (Auto) 0.4 L 1.0-4.0 10^3/uL Monocytes # (Auto) 0.9 0.0-1.0 10^3/uL Eosinophils # (Auto) 0.0 0.0-0.3 10^3/uL Basophils # (Auto) 0.0 0.0-0.1 10^3/uL Immature Granulocyte # (Auto) 0.1 0.0-0.1 10^3/uL Neutrophils % (Manual) 84 % Lymphocytes % (Manual) 2 % Monocytes % (Manual) 8 % Band Neutrophils 6 % Blood Morphology Comment NORMAL Prothrombin Time 19.8 H 12.2-14.7 SEC INR Comment 1.6 H 0.8-1.4 Activated Partial Thromboplast Time 32 24-35 SEC Sodium Level 138 135-145 MMOL/L Potassium Level 3.8 3.6-5.0 MMOL/L Chloride Level 98 98-107 MMOL/L Carbon Dioxide Level 27 21-32 MMOL/L Anion Gap 13 5-14 MMOL/L Blood Urea Nitrogen 33 H 7-18 MG/DL Creatinine 1.39 H 0.60-1.30 MG/DL Estimat Glomerular Filtration Rate 49 BUN/Creatinine Ratio 24 Glucose Level 190 H 70-105 MG/DL Calcium Level 9.6 8.5-10.1 MG/DL Corrected Calcium 9.2 8.5-10.1 MG/DL Magnesium Level 2.3 1.6-2.4 MG/DL Total Bilirubin 0.8 0.1-1.0 MG/DL Aspartate Amino Transf (AST/SGOT) 23 5-34 U/L Alanine Aminotransferase (ALT/SGPT) 20 0-55 U/L Alkaline Phosphatase 44 40-136 U/L Total Protein 8.1 6.4-8.2 GM/DL Albumin 4.5 3.2-4.5 GM/DL Amylase Level 50 25-125 U/L Lipase 16 8-78 U/L My Orders Orders - JACQUELINE TOBAR DO Ed Iv/Invasive Line Start (08/10/20 02:54) Ct Abd/Pelvis Wo(Kidney Stone) (08/10/20 02:54) Abdomen, Flat & Upright/Decub (08/10/20 02:54) Amylase (08/10/20 02:54) Cbc With Automated Diff (08/10/20 02:54) Comprehensive Metabolic Panel (08/10/20 02:54) Lipase (08/10/20 02:54) Magnesium (08/10/20 02:54) Protime With Inr (08/10/20 02:54) Partial Thromboplastin Time (08/10/20 02:54) Ua Culture If Indicated (08/10/20 02:54) Ed Iv/Invasive Line Start (08/10/20 02:54) Lactated Ringers (Lr 1000 Ml Iv Solution (08/10/20 03:00) Ondansetron Injection (Zofran Injectio (08/10/20 03:00) Ketorolac Injection (Toradol Injection) (08/10/20 02:54) Manual Differential (08/10/20 02:53) Medications Given in ED Current Medications Medications Dose Ordered Sig/Hayden Route Start Time Stop Time Status Last Admin Dose Admin Lactated Ringer's 1,000 ml @ 0 mls/hr Q0M ONCE IV 08/10/20 03:00 08/10/20 03:01 DC 08/10/20 03:00 0 MLS/HR Ondansetron HCl 4 mg ONCE ONCE IVP 08/10/20 03:00 08/10/20 03:01 DC 08/10/20 03:00 4 MG Vital Signs/I&O 08/10/20 02:40 Temp 36.4 Pulse 84 Resp 18 B/P (MAP) 133/73 (93) Pulse Ox 97 O2 Delivery Room Air Progress Progress Note : Progress Note WAS ABLE TO PARTIALLY REDUCE HERNIA, PATIENT TOLERATED WELL. AREA IS NOW SOFT AND NOT PROTRUDING, AND IS MORE LOCALIZED IN LLQ, AND IS NON- TENDER NOW. NO DETERIORATION IN PT'S CONDITION DURING ER STAY Diagnostic Imaging Comments ABDOMEN XRAYS--SMALL BOWEL OBSTRUCTION, PENDING RADIOLOGIST REVIEW CT ABDOMEN/PELVIS--SMALL BOWEL OBSTRUCTION WITH TRANSITION POINT IN LEFT INGUINAL HERNIA MILD FAT STRANDING, CANNOT EXCLUDE INCARCERATION. 3.3 CM AORTIC ANEURYSM--PER STAT RAD VIA FAX AT 0074 Reviewed: Reviewed by Me Departure Communication (Admissions) Family Conversation 0455--SPOKE WITH PT'S SON AND UPDATED HIM ON PT'S CONDITION. 044--SPOKE WITH DR. PORTILLO, SURGEON HUMAN SERVICES MANAGER. ACCEPTS PT FOR ADMIT. HE IS VERY FAMILIAR WITH PT, AND HAVE BEEN INVOLVED WITH DR. LOREDO, HIS PCP, AND DR. BUSTILLO, HIS COMMERCIAL LOAN ASSISTANT, REGARDING GETTING THIS HERNIA REPAIRED SINCE LAST SUMMER. PT HAS BEEN HESITANT TO PROCEED, IN THE PAST. PT IS NOW AGREEABLE TO SURGERY. 045--SPOKE WITH DR. HAGER, HOSPITALIST, INFORMED HER OF CONSULT. SHE WILL CONTACT DR. LOREDO IN THE MORNING WELL, HE IS FAMILIAR WITH PT. WILL CONSULT CARDIOLOGY THIS AM WELL. Impression Primary Impression: small bowel obstruction due to left inguinal hernia Additional Impressions: mechanical aortic valve on anticoagulation CAD WITH CABG PACEMAKER IN PLACE Disposition: ADMITTED INPATIENT Condition: Stable Admissions Decision to Admit Reason: Admit from ER (General) Decision to Admit/Date: Aug 10, 2020 Time/Decision to Admit Time: 04:45 Departure-Patient Inst. Referrals: KATHY LOREDO MD (PCP/Family) Primary Care Physician JACQUELINE TOBAR DO Aug 10, 2020 03:03
[2020-08-10 03:05] LABS: BASOPHILS % (AUTO) 0 % (0-10); EOSINOPHILS % (AUTO) 0 % (0-10); HEMATOCRIT 42 % (40-54); LYMPHOCYTES # (AUTO) 0.4 10^3/uL (1.0-4.0); LYMPHOCYTES % (AUTO) 3 % (12-44); MEAN CORPUSCULAR HEMOGLOBIN 30 pg (25-34); MEAN CORPUSCULAR HGB CONC 33 g/dL (32-36); MEAN CORPUSCULAR VOLUME 90 fL (80-99); MEAN PLATELET VOLUME 10.9 fL (9.0-12.2); MONOCYTES # (AUTO) 0.9 10^3/uL (0.0-1.0); MONOCYTES % (AUTO) 7 % (0-12); NEUTROPHILS # (AUTO) 12.3 10^3/uL (1.8-7.8); NEUTROPHILS % (AUTO) 90 % (42-75); PLATELET COUNT 194 10^3/uL (130-400); WHITE BLOOD COUNT 13.7 10^3/uL (4.3-11.0)
[2020-08-10 03:21] LABS: ALBUMIN 4.5 GM/DL (3.2-4.5); BAND NEUTROPHILS 6 %; INR 1.6 (0.8-1.4); LYMPHOCYTES % (MANUAL) 2 %; MONOCYTES % (MANUAL) 8 %; NEUTROPHILS % (MANUAL) 84 %; POTASSIUM 3.8 MMOL/L (3.6-5.0); PROTHROMBIN TIME PATIENT 19.8 SEC (12.2-14.7); RBC MORPH NORMAL
[2020-08-10 03:22] LABS: CALCIUM 9.6 MG/DL (8.5-10.1)
[2020-08-10 03:24] LABS: TOTAL PROTEIN 8.1 GM/DL (6.4-8.2)
[2020-08-10 03:25] LABS: BILIRUBIN,TOTAL 0.8 MG/DL (0.1-1.0)
[2020-08-10 03:27] LABS: CREATININE SERUM 1.39 MG/DL (0.60-1.30)
[2020-08-10 03:30] LABS: MAGNESIUM 2.3 MG/DL (1.6-2.4)
[2020-08-10] MEDS ORDERED: D5 1/2 NS W/KCL 20 MEQ/L 1,000 ML IV ONE (06:07)
--- NOTE | 2020-08-10 06:14 | Diagnostic Imaging Report ---
PROCEDURE: CT urinary tract, rule out kidney stone. TECHNIQUE: Multiple contiguous axial images were obtained through the abdomen and pelvis without the use of intravenous contrast. Auto Exposure Controls were utilized during the CT exam to meet ALARA standards for radiation dose reduction. INDICATION: Flank pain. COMPARISON: 12/19/2019. FINDINGS: The heart is enlarged. Small amount of consolidative opacities are seen in the left lung base, similar to the prior exam. Fluid-filled dilated loops of small bowel are visualized with a transition point identified and a prominent left inguinal hernia. No free fluid or free air is seen in the abdomen and pelvis. Stool is present within the colon. No evidence of obstructing renal calculi or hydronephrosis. Cyst is seen in the mid right kidney which appear stable compared to the prior exam. The urinary bladder is nondistended. The liver, spleen, pancreas, and adrenal glands have a normal noncontrast CT appearance. Cholelithiasis is present without CT evidence of acute cholecystitis. There is no pathologically enlarged mesenteric or retroperitoneal adenopathy. No acute osseous abnormalities. Stable hemangioma in the L3 vertebral body. There is calcified aortic and iliac atherosclerotic plaque. Aneurysmal dilation of the infrarenal abdominal aorta is seen measuring 3.3 cm. There is no free air, loculated collection, or adenopathy in the pelvis. IMPRESSION: 1. Findings consistent with small bowel obstruction with a transition point and a prominent left inguinal hernia. No evidence of free fluid or free air in the abdomen and pelvis. 2. No evidence of renal calculi or hydronephrosis. 3. Stable appearance of an infrarenal abdominal aortic aneurysm measuring 3.3 cm. 4. Cardiomegaly. 5. Cholelithiasis. Agree with overnight report. Dictated by: Dictated on workstation # [id number]
[2020-08-10] MEDS ORDERED: ONDANSETRON 4 MG/2 ML (SDV) Z0FRAN IV PRN (06:15)
[2020-08-10] MEDS ORDERED: fentaNYL INJECTION 100 MCG/2 ML AMP IV PRN (06:15)
--- NOTE | 2020-08-10 06:28 | NUR ---
ROSA ISELA BRAY admitted to room 416-1, with an admitting diagnosis of sbo, on 08/10/20 from ed via wheelchair, accompanied by staff.ROSA ISELA BRAY introduced to surroundings, call light, bed controls, phone, TV, temperature control, lights, meal times, smoking policy, visitor policy, side rail policy, bathrooms and showers. Patient Rights given to patient in the handbook. ROSA ISELA BRAY verbalizes understanding that [facility] is not responsible for the loss or damage to any personal effects or valuables that are kept in the patients posession during their hospitalization. ROSA ISELA BRAY verbalizes understanding of Interdisciplinary Patient Education. Patient and/or family were informed about the Rapid Response Team and its purpose.
[2020-08-10] MEDS: D5 1/2 NS W/KCL 20 MEQ/L 1,000 ML IV SCH ×3 (06:31→22:11)
--- NOTE | 2020-08-10 07:26 | Diagnostic Imaging Report ---
INDICATION: Flank pain. FINDINGS: Supine and upright abdominal radiograph showed differential air-fluid levels throughout the abdominal small bowel. There is some air and stool within the colon. The colonic gas and fecal load is not felt pathologic. There is no free intraperitoneal air and no pneumatosis. There is calcifications in the right upper quadrant likely nephrolithiasis. IMPRESSION: Air-containing mildly dilated small bowel with differential air-fluid levels consistent with at least partial small bowel obstruction. No free air. Right upper quadrant calcifications suspicious for nephrolithiasis. Dictated by: Dictated on workstation # [id number]
--- NOTE | 2020-08-10 07:36 | History & Physical-Surgical ---
AVIVA SUMMERS MED STUDENT 08/10/20 0736: History of Present Illness History of Present Illness Reason for visit/HPI Pt arrived to the ER due to LLQ/ left inguinal pain that migrated to the umbilicus. Pain started the evening of 08/09/19. Pt also noted chest pain that radiated to the shoulder at that time. Pain was described as achy/ sore. Pt denies anything making the pain worse/ better. Associated N/V. Pt has hx of left inguinal hernia which had been non-problematic. Pt previously able to reduce hernia and stabilize with hernia belt. Pt notes previous plans for elective hernia repair that the pt denies following through on. Date of Admission Aug 10, 2020 at 04:45 Date Seen by a Provider: Aug 10, 2020 Time Seen by a Provider: 07:23 I consulted on this patient on 08/10/20 07:20 Attending Physician Alexa Lisa DO Admitting Physician Damian Irvin MD Consult Allergies and Home Medications Allergies Coded Allergies: No Known Drug Allergies (Verified , 01/01/08) Home Medications Desvenlafaxine Succinate 50 Mg Tab.er.24h, 50 MG PO DAILY, (Reported) Enalapril Maleate 2.5 Mg Tablet, 2.5 MG PO BID, (Reported) Ezetimibe/Simvastatin 1 Each Tablet, 1 EACH PO DAILY, (Reported) Fish Oil/Borage/Flax/Om3,6,9#1 1,200 Mg Capsule, 1,200 MG PO DAILY, (Reported) Hydrochlorothiazide 25 Mg Tablet, 25 MG PO DAILY, (Reported) Metoprolol Succinate 25 Mg Tab.er.24h, 25 MG PO DAILY, (Reported) Multivitamin 1 Each Tablet, 1 EACH PO DAILY, (Reported) Warfarin Sodium 5 Mg Tablet, 2.5 MG PO MoTuWeTh, (Reported) TAKES 1/2 (5MG) TABLET Warfarin Sodium 5 Mg Tablet, 5 MG PO SUN,SAT,SAT, (Reported) Past Ftmfnaj-Scbrfy-Reibhh Hx Patient Social History Smoking Status: Former Smoker Former Smoker, Quit: Sep 14, 1990 Type Used: Cigars 2nd Hand Smoke Exposure: No Recent Hopitalizations: No Alcohol Use?: No Have you traveled recently?: No Immunizations Up To Date Date of Pneumonia Vaccine: Apr 14, 2016 Date of Influenza Vaccine: Apr 18, 2016 Seasonal Allergies Seasonal Allergies: No Surgeries History of Surgeries: Yes (CABG X4,CATARACTS,SKIN LESION REM.CHEST;YAG R EYE 07/2019;AORTIC VALVE REP) Surgeries: Cardiac, CABG, Coronary Stent, Eye Surgery, Pacemaker, Valve Replacement Respiratory History of Respiratory Disorde: No Cardiovascular History of Cardiac Disorders: Yes (4 VESSEL CABG;STENT X1;PACEMAKER;MECHANICAL AORTIC VALVE;) Cardiac Disorders: Aneurysm, Coronary Artery Disease, Heart Attack, High Cholesterol, Hypertension, Irregular Heartbeat, Valvular Heart Disease Neurological History of Neurological Disord: No Reproductive System Hx Reproductive Disorders: No Sexually Transmitted Disease: No HIV/AIDS: No Genitourinary History of Genitourinary Disor: No Gastrointestinal History of Gastrointestinal Di: Yes (LEFT INGUINAL HERNIA) Gastrointestinal Disorders: Abdominal Hernia, Diverticulosis, Gall Bladder Disease Musculoskeletal History of Musculoskeletal Dis: Yes (FRACTURE LUMBAR TRANSVERSE PROCESSES 2013;RESTLESS LEG SYNDROME) Musculoskeletal Disorders: Fractures Endocrine History of Endocrine Disorders: No HEENT History of HEENT Disorders: Yes (BILATERAL CATARACTS; YAG CAPSULOTOMY R EYE 08/05/20) HEENT Disorders: Cataract Hearing Impairment: Hard of Hearing Cancer History of Cancer: Yes Cancer: Skin, Melanoma Psychosocial History of Psychiatric Problem: No Integumentary History of Skin or Integumenta: No Blood Transfusions History of Blood Disorders: No Adverse Reaction to a Blood Tr: No Family Medical History Significant Family History: No Pertinent Family Hx Family Medial History: Cardiovascular disease G8 SISTER G8 SISTER Diabetes mellitus 19 MOTHER Myocardial infarction G8 BROTHER G8 BROTHER Parkinson's disease G8 SISTER Review of Systems Constitutional: No chills; dizziness EENTM: no symptoms reported Respiratory: No cough Cardiovascular: No chest pain, No palpitations Gastrointestinal: No nausea, No vomiting Genitourinary: no symptoms reported Musculoskeletal: no symptoms reported Skin: no symptoms reported Psychiatric/Neurological: No Symptoms Reported Physical Exam Vital Signs Vital Signs - First Documented 08/10/20 02:40 Temp 36.4 Pulse 84 Resp 18 B/P (MAP) 133/73 (93) Pulse Ox 97 O2 Delivery Room Air Capillary Refill : Less Than 3 Seconds Height, Weight, BMI Height: 5'11.00" Weight: 210lbs. 4.8oz. 95.322401xd; 27.26 BMI Method:Estimated General Appearance: No Apparent Distress, WD/WN HEENT: PERRL/EOMI Neck: Normal Inspection Respiratory: Lungs Clear, Normal Breath Sounds, No Accessory Muscle Use, No Respiratory Distress Cardiovascular: Regular Rate, Rhythm, Gallop/S3 Gastrointestinal: Normal Bowel Sounds, Non Tender, Soft, Hernia (left inguinal ) Rectal: Deferred Back: Normal Inspection Extremity: Normal Inspection, No Pedal Edema Neurologic/Psychiatric: Alert, Oriented x3, Normal Mood/Affect Skin: Normal Color, Warm/Dry Lymphatic: No Adenopathy Data Review Labs Laboratory Tests 08/10/20 02:53: White Blood Count 13.7H, Red Blood Count 4.66, Hemoglobin 14.0, Hematocrit 42, Mean Corpuscular Volume 90, Mean Corpuscular Hemoglobin 30, Mean Corpuscular Hemoglobin Concent 33, Red Cell Distribution Width 15.2H, Platelet Count 194, Mean Platelet Volume 10.9, Immature Granulocyte % (Auto) 0, Neutrophils (%) (Auto) 90H, Lymphocytes (%) (Auto) 3L, Monocytes (%) (Auto) 7, Eosinophils (%) (Auto) 0, Basophils (%) (Auto) 0, Neutrophils # (Auto) 12.3H, Lymphocytes # (Auto) 0.4L, Monocytes # (Auto) 0.9, Eosinophils # (Auto) 0.0, Basophils # (Auto) 0.0, Immature Granulocyte # (Auto) 0.1, Neutrophils % (Manual) 84, Lymphocytes % (Manual) 2, Monocytes % (Manual) 8, Band Neutrophils 6, Blood Morphology Comment NORMAL, Prothrombin Time 19.8H, INR Comment 1.6H, Activated Partial Thromboplast Time 32, Sodium Level 138, Potassium Level 3.8, Chloride Level 98, Carbon Dioxide Level 27, Anion Gap 13, Blood Urea Nitrogen 33H, Creatinine 1.39H, Estimat Glomerular Filtration Rate 49, BUN/Creatinine Ratio 24, Glucose Level 190H, Calcium Level 9.6, Corrected Calcium 9.2, Magnesium Level 2.3, Total Bilirubin 0.8, Aspartate Amino Transf (AST/SGOT) 23, Alanine Aminotransferase (ALT/SGPT) 20, Alkaline Phosphatase 44, Total Protein 8.1, Albumin 4.5, Amylase Level 50, Lipase 16 Assessment/Plan Assessment/Plan Admission Diagonsis Small Bowel Obstruction/ Left Inguinal Hernia Assessment/Plan Small bowel obstruction Left inguinal hernia Elevated PT (19.8)/ INR (1.6) Leukocytosis - 13.7 Bowel resection w/t hernia repair NPO FFP administration Pain/ nausea control Telemetry ALEXA LISA DO 08/10/20 1119: History of Present Illness History of Present Illness Reason for visit/HPI CC Left inguinal hernia Patient is an 85 year old male with left inguinal hernia. Patient has had issues previously, but has delayed repair. Patient has been lifting more and has had it increase in size. Causing more discomfort. Unable to get completely reduced. Had ct scan showing left inguinal hernia with small bowel obstruction, and cannot rule out strangulation. Patient with episode of nausea and emesis at times. Pain moderate, but improved at this time. Denies fever sweats chills shortness of breath or chest pain. Patient anticoagulated due to valve replacecment INR 1.6. Allergies and Home Medications Allergies Coded Allergies: No Known Drug Allergies (Verified , 01/01/08) Home Medications Desvenlafaxine Succinate 50 Mg Tab.er.24h, 50 MG PO DAILY, (Reported) Enalapril Maleate 2.5 Mg Tablet, 2.5 MG PO BID, (Reported) Ezetimibe/Simvastatin 1 Each Tablet, 1 EACH PO DAILY, (Reported) Fish Oil/Borage/Flax/Om3,6,9#1 1,200 Mg Capsule, 1,200 MG PO DAILY, (Reported) Hydrochlorothiazide 25 Mg Tablet, 25 MG PO DAILY, (Reported) Metoprolol Succinate 25 Mg Tab.er.24h, 25 MG PO DAILY, (Reported) Multivitamin 1 Each Tablet, 1 EACH PO DAILY, (Reported) Warfarin Sodium 5 Mg Tablet, 2.5 MG PO MoTuWeTh, (Reported) TAKES 1/2 (5MG) TABLET Warfarin Sodium 5 Mg Tablet, 5 MG PO SUN,FRI,SAT, (Reported) Patient Home Medication List Home Medication List Reviewed: Yes Past Rvgxapv-Ensort-Cawlxg Hx Reviewed Nursing Assessment Reviewed/Agree w Nursing PMH: Yes Family Medical History Significant Family History: No Pertinent Family Hx Family Medial History: Cardiovascular disease G8 SISTER G8 SISTER Diabetes mellitus 19 MOTHER Myocardial infarction G8 BROTHER G8 BROTHER Parkinson's disease G8 SISTER Review of Systems Constitutional: No chills EENTM: hearing loss; No ear discharge Respiratory: No cough, No short of breath Cardiovascular: No chest pain, No palpitations Gastrointestinal: nausea, vomiting (on occasion), other (left inguinal hernia) Genitourinary: No decreased output, No discharge Musculoskeletal: No back pain, No joint pain Skin: No change in color, No change in hair/nails Psychiatric/Neurological: Denies Anxiety, Denies Depressed, Denies Emotional Problems All Other Systems Reviewed Negative Unless Noted: Yes Physical Exam General Appearance: No Apparent Distress, WD/WN HEENT: PERRL/EOMI Neck: Normal Inspection, Supple Respiratory: Chest Non Tender, No Accessory Muscle Use, No Respiratory Distress Cardiovascular: Regular Rate, Rhythm, No JVD Gastrointestinal: Normal Bowel Sounds, Soft, Hernia (left inguinal , not comple teley reducible) Rectal: Deferred Back: Normal Inspection, No CVA Tenderness Extremity: Normal Capillary Refill, Normal Inspection Neurologic/Psychiatric: Alert, Oriented x3, Normal Mood/Affect Skin: Normal Color, Warm/Dry Lymphatic: No Adenopathy Assessment/Plan Assessment/Plan Admission Diagonsis incarcerated left inguinal hernia with possibility of strangulation small bowel obstruction secondary to left inguinal hernia oil 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 INR 1.6 will proceed TO OR Admission Status: Observation Assessment/Plan incarcerated left inguinal hernia with possibility of strangulation small bowel obstruction secondary to left inguinal hernia oil 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 INR 1.6 will proceed Ancef preop abx Medicine/cardiology consulted TO OR Supervisory-Addendum Brief Verification & Attestation Participated in pt care: history, MDM, physical Personally performed: exam, history, MDM, supervision of care Care discussed with: Medical Student Procedures: n/a Results interpretation: Verified all documentation Verification and Attestation of Medical Student E/M Service A medical student performed and documented this service in my presence. I reviewed and verified all information documented by the medical student and made modifications to such information, when appropriate. I personally performed the physical exam and medical decision making. Alexa Lisa, Aug 10, 2020,11:24 AVIVA SUMMERS MED STUDENT Aug 10, 2020 07:36 ALEXA LISA DO Aug 10, 2020 11:19
[2020-08-10] MEDS ORDERED: LACTATED RINGERS 1,000 ML IV PRN (08:00)
--- NOTE | 2020-08-10 10:06 | Progress Note - Hospitalist ---
Subjective HPI/CC On Admission Date Seen by Provider: Aug 10, 2020 Time Seen by Provider: 10:06 Objective Exam Vital Signs Vital Signs Date Time Temp Pulse Resp B/P (MAP) Pulse Ox O2 Delivery O2 Flow Rate FiO2 08/10/20 14:10 Room Air 08/10/20 14:00 36.5 16 108/50 (69) 98 08/10/20 13:45 4 08/10/20 12:00 78 Capillary Refill : Less Than 3 Seconds Results/Procedures Lab Laboratory Tests 08/10/20 02:53 Patient resulted labs reviewed. WILL ENGLE MD Aug 10, 2020 10:06
--- NOTE | 2020-08-10 10:36 | NUR ---
Pt is Worship and declines sacraments.
[2020-08-10] MEDS ORDERED: WARF-48 PO (11:05)
[2020-08-10] MEDS ORDERED: ENLP2.5T PO (11:05)
--- NOTE | 2020-08-10 11:07 | NUR ---
SPOKE WITH THE PT (HE HAS A MED LIST I PUT ON HIS CHART)AND CALLED [facility] AND DR. NAIR OFFICE TO COMPLETE THE MED REC PRISTIQ 50MG AND VYTORIN 10/25MG- PT GETS BOTH THESE THRU PT ASSISTANCE FILL DATES FROM [facility]: 06-02-2020 METOPROLOL SUCC 25MG #90/90DS 06-02-2020 HCTZ 25MG #90/90DS 07-02-2020 WARFARIN 5MG #90/135DS 07-24-2020 ENALAPRIL 2.5MG #60/30DS OTC MEDS: MTV W/ [employer] FISH OIL
[2020-08-10] MEDS ORDERED: SEVOFLURANE (ULTANE) 15 ML INHAL SOLN ONE ×3 (11:08→13:01)
[2020-08-10] MEDS ORDERED: ONDANSETRON 4 MG/2 ML (SDV) Z0FRAN ONE (11:08)
[2020-08-10] MEDS ORDERED: fentaNYL INJECTION 100 MCG/2 ML AMP ONE (11:08)
[2020-08-10] MEDS ORDERED: ROCURONIUM 10 MG/ML 5 ML SYRINGE IV ONE (11:08)
[2020-08-10] MEDS ORDERED: proPOfol 200 MG/20 ML (DIPRIVAN) VIAL IV ONE (11:08)
[2020-08-10] MEDS ORDERED: LIDOCAINE PF 2% 5 ML (XYLOCAINE) VIAL ONE (11:08)
[2020-08-10] MEDS ORDERED: ceFAZolin 2 GM IV Premixed 50 ML IV ONE (11:15)
[2020-08-10] MEDS ORDERED: MULT-166 PO (11:18)
[2020-08-10] MEDS: LACTATED RINGERS 1,000 ML IV PRN ×2 (11:28→12:17)
[2020-08-10] MEDS ORDERED: WATER (STERILE) FOR INJECTION 40 ML ONE (11:35)
[2020-08-10] MEDS ORDERED: ceFAZolin INJECTION 2,000 MG ONE (11:35)
--- NOTE | 2020-08-10 11:47 | Consultation - Hospitalist ---
HPI History of Present Illness: HPI/Chief Complaint Pt is an 85yoCM well known to me from the community who presented with abdominal pain and vomiting. He has a known left inguinal hernia and has seen Dr Lisa multiple times for this and has so far done ok with an abdominal binder and self reduction. Last night he was unable to get it reduced and developed worsening pain and vomited prompting him to seek evaluation in the ER. Source: patient Exam Limitations: no limitations Date Seen 08/10/20 Attending Physician Rudi Lisa DO PCP Kathy Irvin MD Referring Physician Date of Admission Aug 10, 2020 at 04:45 Home Medications & Allergies Home Medications Reviewed patient Home Medication Reconciliation performed by pharmacy medication reconciliations hazardous waste material technician and/or nursing. Patients Allergies have been reviewed. Allergies Allergies Coded Allergies No Known Drug Allergies (Verified01/01/08) Past Aesmwvj-Myqzxi-Cdqbcf Hx Past Med/Social Hx: Reviewed and Corrections made Patient Social History Marrital Status: Alcohol Use: Denies Use Recreational Drug Use: No Smoking Status: Former Smoker Former Smoker, Quit: Sep 14, 1990 Type Used: Cigars 2nd Hand Smoke Exposure: No Recent Foreign Travel: No Contact w/other who traveled: No Recent Hopitalizations: No Recent Infectious Disease Expo: No Immunizations Up To Date Date of Pneumonia Vaccine: Apr 14, 2016 Date of Influenza Vaccine: Apr 18, 2016 Seasonal Allergies Seasonal Allergies: No Past Medical History Surgeries: Cardiac, CABG, Coronary Stent, Eye Surgery, Pacemaker, Valve Replacement Currently Using CPAP: No Currently Using BIPAP: No Cardiac: Aneurysm, Coronary Artery Disease, Heart Attack, High Cholesterol, Hypertension, Irregular Heartbeat, Valvular Heart Disease Reproductive: No Sexually Transmitted Disease: No HIV/AIDS: No Gastrointestinal: Abdominal Hernia, Diverticulosis, Gall Bladder Disease Musculoskeletal: Fractures HEENT: Cataract Hearing Impairment: Hard of Hearing Cancer: Skin, Melanoma Did You Recieve Any Treatments: Yes What Type of Treatment Did You: Surgical Intervention Cancer: LENTIGO MALIGNA MELANOMA REMOVED 2015 History of Blood Disorders: No Adverse Reaction to Blood [place]: No Family History Cardiovascular disease G8 SISTER G8 SISTER Diabetes mellitus 19 MOTHER Myocardial infarction G8 BROTHER G8 BROTHER Parkinson's disease G8 SISTER No Pertinent Family Hx ADDITIONAL PAST MEDICAL AND SURGICAL HISTORY: -AORTIC VALVE REPLACEMENT, WITH REPLACEMENT OF AORTIC ARCH AND ASCENDING AORTA 1999 -KNOWN ABDOMINAL AORTIC ANEURYSM, 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--NO SURGERY -CAROTID DISEASE-NO INTERVENTION Review of Systems Constitutional: No chills, No fever EENTM: no symptoms reported Respiratory: no symptoms reported Cardiovascular: no symptoms reported Gastrointestinal: see HPI, abdominal pain; No constipation; vomiting Genitourinary: no symptoms reported Musculoskeletal: no symptoms reported Skin: no symptoms reported Psychiatric/Neurological: No Symptoms Reported Physical Exam Physical Exam Vital Signs Vital Signs - First Documented 08/10/20 02:40 Temp 36.4 Pulse 84 Resp 18 B/P (MAP) 133/73 (93) Pulse Ox 97 O2 Delivery Room Air Capillary Refill : Less Than 3 Seconds Height, Weight, BMI Height: 5'11.00" Weight: 210lbs. 4.8oz. 95.220014ft; 27.26 BMI Method:Estimated General Appearance: No Apparent Distress, WD/WN HEENT: PERRL/EOMI Neck: Normal Inspection, Supple Respiratory: Lungs Clear, No Accessory Muscle Use, No Respiratory Distress Cardiovascular: Regular Rate, Rhythm, No JVD, Systolic Murmur Gastrointestinal: Normal Bowel Sounds, Soft Rectal: Deferred Back: Normal Inspection, No CVA Tenderness Extremity: Normal Capillary Refill, Normal Inspection Neurologic/Psychiatric: Alert, Oriented x3, Normal Mood/Affect Skin: Normal Color, Warm/Dry Results Results/Procedures Labs Laboratory Tests 08/10/20 02:53 Patient resulted labs reviewed. Imaging: Reviewed Imaging Report Imaging [facility] [place], [place] NAME: ROSA ISELA B[facility] REC#: [id number] PT STATUS: ADM IN : 1935 PHYSICIAN: JACQUELINE TOBAR DO ADMIT DATE: 08/10/20/4TH Signed Date of Exam:08/10/20 ABDOMEN, FLAT & UPRIGHT/DECUB INDICATION: Flank pain. FINDINGS: Supine and upright abdominal radiograph showed differential air-fluid levels throughout the abdominal small bowel. There is some air and stool within the colon. The colonic gas and fecal load is not felt pathologic. There is no free intraperitoneal air and no pneumatosis. There is calcifications in the right upper quadrant likely nephrolithiasis. IMPRESSION: Air-containing mildly dilated small bowel with differential air-fluid levels consistent with at least partial small bowel obstruction. No free air. Right upper quadrant calcifications suspicious for nephrolithiasis. Dictated by: Dictated on workstation # [id number] Dict: 08/10/20 0632 Trans: 08/10/20 1142 GRADY [id number] Interpreted by: MARY ANN JIMENEZ Electronically signed by: MARY ANN JIMENEZ 08/10/20 1142 [facility] [place], [place] NAME: ROSA ISELA BRAY [facility] REC#: [id number] PT STATUS: ADM IN : 1935 PHYSICIAN: JACQUELINE TOBAR DO ADMIT DATE: 08/10/20 Signed Date of Exam:08/10/20 CT ABD/PELVIS WO(KIDNEY STONE) PROCEDURE: CT urinary tract, rule out kidney stone. TECHNIQUE: Multiple contiguous axial images were obtained through the abdomen and pelvis without the use of intravenous contrast. Auto Exposure Controls were utilized during the CT exam to meet ALARA standards for radiation dose reduction. INDICATION: Flank pain. COMPARISON: 12/19/2019. FINDINGS: The heart is enlarged. Small amount of consolidative opacities are seen in the left lung base, similar to the prior exam. Fluid-filled dilated loops of small bowel are visualized with a transition point identified and a prominent left inguinal hernia. No free fluid or free air is seen in the abdomen and pelvis. Stool is present within the colon. No evidence of obstructing renal calculi or hydronephrosis. Cyst is seen in the mid right kidney which appear stable compared to the prior exam. The urinary bladder is nondistended. The liver, spleen, pancreas, and adrenal glands have a normal noncontrast CT appearance. Cholelithiasis is present without CT evidence of acute cholecystitis. There is no pathologically enlarged mesenteric or retroperitoneal adenopathy. No acute osseous abnormalities. Stable hemangioma in the L3 vertebral body. There is calcified aortic and iliac atherosclerotic plaque. Aneurysmal dilation of the infrarenal abdominal aorta is seen measuring 3.3 cm. There is no free air, loculated collection, or adenopathy in the pelvis. IMPRESSION: 1. Findings consistent with small bowel obstruction with a transition point and a prominent left inguinal hernia. No evidence of free fluid or free air in the abdomen and pelvis. 2. No evidence of renal calculi or hydronephrosis. 3. Stable appearance of an infrarenal abdominal aortic aneurysm measuring 3.3 cm. 4. Cardiomegaly. 5. Cholelithiasis. Agree with overnight report. Dictated by: Dictated on workstation # [id number] Dict: 08/10/20600 Trans: 08/10/20616 [id number] Interpreted by: MAYRA HAWLEY DO Electronically signed by: MAYRA HAWLEY DO 08/10/20616 Assessment/Plan Assessment and Plan Assess & Plan/Chief Complaint Incarcerated inguinal hernia Plan for OR today Discussed with patient and his son that surgery will be intermediate to high risk surgery giving his known heart disease but that if left unattended could worsen and be much more significant surgery Patient anxious about potential surgery, offered second opinion from surgeon but he declined Cardiology consulted as well Hold home Warfarin for surgery until ok with them to resume Discussed with Dr Irvin, his PCP, who is in agreement with plan Aortic valve replacement HLD HTN Cardiology consulted Resume home cardiac meds, hold Warfarin DVT ppx: Holding anticoagulation as above Diagnosis/Problems Diagnosis/Problems (1) Left inguinal hernia (2) mechanical aortic valve on anticoagulation (3) CAD (coronary artery disease) Status: Chronic Qualifiers: Coronary Disease-Associated Artery/Lesion type: bypass graft [place] vs. transplanted heart: [place] heart Associated angina: without angina Qualified Codes: I25.810 - Atherosclerosis of coronary artery bypass graft(s) without angina pectoris (4) HTN (hypertension) Status: Chronic (5) Chronic anticoagulation Status: Chronic (6) Prophylactic measure Copy Copies To 1: KATHY IRVIN MD, KATELYN M MD Aug 10, 2020 11:47
[2020-08-10] MEDS ORDERED: NEOSTIGMINE 3 MG/3 ML VIAL ONE (11:50)
[2020-08-10] MEDS ORDERED: GLYCOPYRROLATE 0.2 MG/ML (ROBINUL) 2 ML VIAL ONE (11:50)
[2020-08-10] MEDS ORDERED: PHENYLEPHRINE 100 MCG/ML 10 ML (ANESTHESIA) SYR ONE (11:51)
[2020-08-10] MEDS ORDERED: LIDOCAINE/EPI 1%-1:200,000 (XYLOCAINE) 30 ML VIAL INJ ONE (12:00)
--- NOTE | 2020-08-10 12:48 | Consultation-Cardiology ---
HPI-Cardiology Cardiology Consultation Date of Consultation 08/10/20 Date of Admission Time Seen by Provider: 10:06 Indication: CAD, CHF, cardiac clearance HPI Patient is an 85 y/o male with history of CAD, CHF, PPM, Aortic valve replacement, known left inguinal hernia. Presented to the ER with abdominal pain and vomiting. Found to have incarcerated hernia. Denies any chest pain, dypsnea, or dizziness. Continues to complain of some abdominal pain. Planning for surgery later today or tomorrow. Home Medications & Allergies Allergies: Coded Allergies: No Known Drug Allergies (Verified , 01/01/08) Home Medication List Reviewed: Yes RDH-Chprkx-Pvgzoc Hx Patient Social History Marital Status: Recreational Drug Use: No Smoking Status: Former Smoker Former smoker/When Quit: Aug 15, 1975 Type Used: Cigars 2nd Hand Smoke Exposure: No Recent Hopitalizations: No Have you traveled recently?: No Alcohol Use?: No Immunizations Up To Date Date of Pneumonia Vaccine: Apr 14, 2016 Date of Influenza Vaccine: Apr 18, 2016 Past Medical History CAD, CHF, HTN, PPM, Aortic valve replacement Family Medical History Significant Family History: No Pertinent Family Hx Family History: Cardiovascular disease G8 SISTER G8 SISTER Diabetes mellitus 19 MOTHER Myocardial infarction G8 BROTHER G8 BROTHER Parkinson's disease G8 SISTER Review of Systems-General Review of Systems Constitutional: No chills EENTM: hearing loss; No ear discharge Respiratory: No cough, No short of breath Cardiovascular: No chest pain, No palpitations Gastrointestinal: nausea, vomiting (on occasion), other (left inguinal hernia) Genitourinary: No decreased output, No discharge Musculoskeletal: No back pain, No joint pain Skin: No change in color, No change in hair/nails Psychiatric/Neurological: Denies Anxiety, Denies Depressed, Denies Emotional Problems All Other Systems Reviewed Negative Unless Noted: Yes Reviewed Test Results Reviewed Test Results Lab Laboratory Tests 08/10/20 02:53: White Blood Count 13.7H, Red Blood Count 4.66, Hemoglobin 14.0, Hematocrit 42, Mean Corpuscular Volume 90, Mean Corpuscular Hemoglobin 30, Mean Corpuscular Hemoglobin Concent 33, Red Cell Distribution Width 15.2H, Platelet Count 194, Mean Platelet Volume 10.9, Immature Granulocyte % (Auto) 0, Neutrophils (%) (Auto) 90H, Lymphocytes (%) (Auto) 3L, Monocytes (%) (Auto) 7, Eosinophils (%) (Auto) 0, Basophils (%) (Auto) 0, Neutrophils # (Auto) 12.3H, Lymphocytes # (Aut o) 0.4L, Monocytes # (Auto) 0.9, Eosinophils # (Auto) 0.0, Basophils # (Auto) 0.0, Immature Granulocyte # (Auto) 0.1, Neutrophils % (Manual) 84, Lymphocytes % (Manual) 2, Monocytes % (Manual) 8, Band Neutrophils 6, Blood Morphology Comment NORMAL, Prothrombin Time 19.8H, INR Comment 1.6H, Activated Partial Thromboplast Time 32, Sodium Level 138, Potassium Level 3.8, Chloride Level 98, Carbon Dioxide Level 27, Anion Gap 13, Blood Urea Nitrogen 33H, Creatinine 1.39H, Estimat Glomerular Filtration Rate 49, BUN/Creatinine Ratio 24, Glucose Level 190H, Calcium Level 9.6, Corrected Calcium 9.2, Magnesium Level 2.3, Total Bilirubin 0.8, Aspartate Amino Transf (AST/SGOT) 23, Alanine Aminotransferase (ALT/SGPT) 20, Alkaline Phosphatase 44, Total Protein 8.1, Albumin 4.5, Amylase Level 50, Lipase 16 ECG Impression ECG Initial ECG Intervals PACED Physical Exam Physical Exam Vital Signs Vital Signs - First Documented 08/10/20 02:40 Temp 36.4 Pulse 84 Resp 18 B/P (MAP) 133/73 (93) Pulse Ox 97 O2 Delivery Room Air Capillary Refill : Less Than 3 Seconds Height, Weight, BMI Height: 5'11.00" Weight: 210lbs. 4.8oz. 95.621305dh; 27.26 BMI Method:Estimated General Appearance: No Apparent Distress, WD/WN HEENT: PERRL/EOMI Neck: Normal Inspection, Supple Respiratory: Chest Non Tender, No Accessory Muscle Use, No Respiratory Distress Cardiovascular: Regular Rate, Rhythm, No JVD Gastrointestinal: Normal Bowel Sounds, Soft, Hernia (left inguinal , not completeley reducible) Rectal: Deferred Back: Normal Inspection, No CVA Tenderness Extremity: Normal Capillary Refill, Normal Inspection Neurologic/Psychiatric: Alert, Oriented x3, Normal Mood/Affect Skin: Normal Color, Warm/Dry Lymphatic: No Adenopathy A/P-Cardiology Admission Diagnosis CHF CAD AV replacement AAA Assessment/Plan Small bowel obstruction, left inguinal hernia, planning for OR for bowel resection and hernia repair. CHF, 2D Echo done April 2020 showing EF 30-35%. Septal motion dyssynergy with mod to severely dilated left atrium, mod MR, TR, bioprosthetic valve in aortic postion appeared to be functioning normally. PA 55-60%. Deterioration compared to 2017 echo. Coronary artery disease with a history of coronary artery bypass surgery. Cardiac catheterization of 01/03/08 showed patent composite left internal mammary artery and saphenous vein graft to left anterior descending artery, two obtuse marginal arteries and the distal right coronary artery. The arteries to which the grafts go exhibited moderate diffuse disease. Proximal portions of the hoh coronary arteries were occluded. Patient has refused stress test in the past, continues to refuse stress test. Syncope d/t intermittent CHB, treated with dual chamber MRI-safe pacemaker (CarZenronik) on 09/21/16. Pacemaker functioning normally on interrogation carried out on 01/02/20. 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 Last echo of 03/22/17 is reported to have shown LVEF 50-55%, no RWMA, dilated LA, AoV prosthesis with peak grad 20 mmHg and valve area 2 sq cm, and PASP 30 mmHg Hyperlipidemia, maintained on statin. Chronic anticoagulation with warfarin, followed by Dr Irvin. INR 1.6 History of abdominal aortic aneurysm on CT angiography of the abdominal aorta in 2002. On this CT angiography, some dissection was reported as well, and the patient saw Dr. Jung of Cardiovascular Surgery, who felt that the dissection was old. On subsequent ultrasonography by Dr. 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 On abdominal CT with contrast of July 2009, there was a calcified aorta without aneurysm. In August 2009 ultrasonography did not report an significant aneurysm. 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 On 06/30/13 u/s showed mild dilatation of distal abdominal aorta (measuring 3.1 cm); this remains unchanged on abd aortic u/s of 05/10/15 that showed AAA measuring 2.9x3.1. Last abd ao u/s on September 14, 2107: AAA measuring 3.[address] abd on this admission showing stable AAA. Diverticulosis of the sigmoid colon on abdominal CT with contrast of July 2009. Hypertension, continue to monitor blood pressure. Mild to mod carotid arterial disease per ultrasonography of 12/04/18 H/o restless legs, currently stable Presbycusis Thank you for allowing us to participate in the management of Mr. Shah. This is Ban Fregoso PA-C, as a scribe for Dr. Meraz. Patient was seen and evaluated with Ban, examination performed, management plan was discussed, agree with the current scribed note, I made few changes to the note using Italic font Patient has extensive cardiac history, has small bowel obstruction Intermittent complete heart block, aortic valve replacement He is considered at intermediate to high risk for perioperative cardiovascular complication. We'll continue monitoring him with you, thank you for your consultation BAN DURHAM Aug 10, 2020 12:48 pm CHANTALE MERAZ MD Aug 10, 2020 4:54 pm
--- NOTE | 2020-08-10 13:09 | Progress Note-Post Operative ---
Post-Operative Progess Note Surgeon (s)/Horses Or Mules Teamster (s) Surgeon ALEXA PORTILLO DO Horses Or Mules Teamster: Dr. Ward to assist in retraction dissection and closure Pre-Operative Diagnosis left inguinal hernia Post-Operative Diagnosis direct and indirect lncarcerated left inguinal hernia Procedure & Operative Findings Date of Procedure 08/10/20 Procedure Performed/Findings diagnostic laparoscopy open direct/indirect incarcerated hernia repair. Anesthesia Type general Estimated Blood Loss Estimated blood loss (mL): minimal Specimens/Packing Specimens Removed hernia sac, intraperitoneal mass ALEXA PORTILLO DO Aug 10, 2020 13:09
[2020-08-10] MEDS: ceFAZolin 2 GM IV Premixed 50 ML IV SCH ×2 (15:00→22:10)
[2020-08-10] MEDS: ENALAPRIL 2.5 MG (VASOTEC) TAB PO SCH (20:15)
--- NOTE | 2020-08-10 23:31 | OPERATIVE REPORT ---
DATE OF SERVICE: 08/10/2020 PREOPERATIVE DIAGNOSIS: Left inguinal hernia, incarcerated, possible strangulated. POSTOPERATIVE DIAGNOSIS: Direct and indirect incarcerated left inguinal hernia. SURGEON: Alexa Lisa DO. BAND SAW FILER: Dr. Ward, assisted in retraction, dissection and closure. ANESTHESIA: General. PROCEDURE: Diagnostic laparoscopy, open direct and indirect incarcerated hernia repair. ESTIMATED BLOOD LOSS: Minimal. COMPLICATIONS: None. SPECIMENS: Hernia sac and intraperitoneal mass. DESCRIPTION OF PROCEDURE: The patient was taken to the operating suite, was prepped and draped in sterile fashion. Surgical pause was performed. Local anesthetic was infiltrated just above the umbilicus. An 11-blade scalpel was used to make a skin incision. Cautery was used to dissect down to the fascia, which was then scored and opened and 0 Vicryl was placed in a [id number] fashion for closure at the end of the case. A 12 mm balloon trocar was inserted and pneumoperitoneum was achieved. Left inguinal hernia identified. The bowel was able to then be reduced. All the bowel appeared viable. No strangulation of the bowel was present. At this time, the abdomen was then desufflated. The incision was made in the left lower quadrant. Cautery used to dissect down through the subcutaneous tissues. The external oblique was then opened down through the external ring. The spermatic cord was then dissected around. A Leonidas drain was placed around it. The hernia sac was then began to be divided off of the cord. The hernia sac was then opened and intraperitoneal mass, cystic mass approximately 1 cm in diameter was present loosely, which was then grasped and sent for pathology. All the hernia contents were completely reduced and the hernia sac was dissected down to the base, then twisted and suture ligated. The floor defect was present, which a 0 Vicryl was used to suture the transversalis fascia to the shelving edge closing the defect. A Parietex mesh was then secured to Jameel's ligament and then incorporated around the spermatic cord and placed on the external oblique. The wound was then irrigated with copious amounts of irrigation and suction. The subcutaneous tissues were then reapproximated using 3-0 Vicryl and the skin was then closed with brian. The abdomen was then reinsufflated and the bowel was reinspected noting no new pathology. Hernia defect was closed. A 5 mm trocar was placed in the right lower quadrant under direct visualization of laparoscope and bowel was again reinspected noting no new pathology. The abdomen was then desufflated, the trocars were removed. The 0 Vicryl placed at the beginning of the case 12 mm trocar was then tied and the skin was then closed using brian. The area was washed and dried and sterile bandages were applied. The patient tolerated procedure well without any complications and taken to recovery room in stable condition. Job ID: [id number] DocumentID: [id number] Dictated Date: 08/10/2020 20:20:27 Cash Management Coordinator Date: 08/10/2020 23:30:31 Dictated By: AELXA LISA DO
[2020-08-11 04:06] VITALS: BP 109/57
--- NOTE | 2020-08-11 06:54 | Progress Note - Surgery ---
AVIVA SUMMERS MED STUDENT 08/11/20 0654: Subjective Date Seen by a Provider: Aug 11, 2020 Time Seen by a Provider: 06:49 Subjective/Events-last exam Pt awake and lying down upon entering. Pt notes B/L lower quadrant soreness. Pt denies N/V, chills, and SOB. Pt has no complaints and states he is feeling pretty good. No BM yet, put passing flatus. No acute events overnight. Review of Systems General: No Chills; Fatigue HEENT: No Head Aches, No Dysphasia Pulmonary: Cough Cardiovascular: No: Chest Pain, Palpitations Gastrointestinal: No: Nausea, Vomiting Genitourinary: No Dysuria, No Retention Musculoskeletal: No: back pain, leg pain Neurological: No: Weakness, Confusion Objective Exam Vital Signs Date Time Temp Pulse Resp B/P (MAP) Pulse Ox O2 Delivery O2 Flow Rate FiO2 08/11/20 04:06 36.8 90 18 109/57 (74) 96 Room Air 08/11/20 01:00 71 08/10/20 23:39 35.7 76 18 98/53 (68) 96 Room Air 08/10/20 20:00 Room Air 08/10/20 19:46 36.8 80 18 102/54 (70) 98 Room Air 08/10/20 19:00 81 08/10/20 16:00 36.4 83 20 115/65 (82) 95 Room Air 08/10/20 14:10 Room Air 08/10/20 14:00 36.5 16 108/50 (69) 98 Room Air 08/10/20 13:50 16 111/48 (69) 100 Room Air 08/10/20 13:45 OxyMask 4 08/10/20 13:40 16 109/52 (71) 100 OxyMask 2 08/10/20 13:30 14 84/52 (63) 100 OxyMask 4 08/10/20 13:30 OxyMask 6 08/10/20 13:20 14 118/69 (85) 100 OxyMask 6 08/10/20 13:15 36.5 14 123/65 (84) 100 OxyMask 8 08/10/20 13:15 OxyMask 8 08/10/20 12:00 36.6 78 16 89/57 (68) 93 Room Air 08/10/20 08:00 94 Room Air 08/10/20 08:00 36.6 73 18 101/50 (67) 94 Room Air I & O 08/11/20 07:00 Intake Total 2580 ml Output Total 1500 ml Balance 1080 ml Capillary Refill : Less Than 3 Seconds General Appearance: No Apparent Distress, WD/WN HEENT: PERRL/EOMI Neck: Normal Inspection, Supple Respiratory: Chest Non Tender, Lungs Clear, Normal Breath Sounds, No Accessory Muscle Use, No Respiratory Distress Cardiovascular: Regular Rate, Rhythm, No Edema, No JVD, Normal Peripheral Pulses Gastrointestinal: soft; No tenderness; hernia (VERY LARGE HERNIA, VERY FIRM, TENDER--OVERLYING SUPRAPUBIC AREA, CROSSING MIDLINE AND LEFT GROIN AREA. ) Extremity: Normal Capillary Refill, Normal Inspection, No Pedal Edema Neurologic/Psychiatric: Alert, Oriented x3, Normal Mood/Affect Skin: Normal Color, Warm/Dry Lymphatic: No Adenopathy Results Lab Laboratory Tests 08/10/20 11:45: Coronavirus (COVID-19)(PCR) Negative Assessment/Plan Assessment/Plan Assessment/Plan incarcerated left inguinal hernia with possibility of strangulation small bowel obstruction secondary to left inguinal hernia [facility] anticoagulation History of valve replacement Patient discussed risks and benefits of open left inguinal hernia repair and diagnostic laparoscopy to make sure the bowel is not compromised may need bowel resection if bowel compromised patient initially declining operative management discussed again with patient and with patient son and now they understand risks and benefits and wish to proceed. INR 1.6 will proceed Ancef preop abx Medicine/cardiology consulted TO OR ALEXA LISA DO 08/11/20 1149: Subjective Subjective/Events-last exam Pain not having any significant pain. Not needing pain medication. Passing flatus. Tolerating liquids. Denies n/v fever sweats chills shortness of breath or chest pain. Objective Exam General Appearance: No Apparent Distress, WD/WN HEENT: PERRL/EOMI Neck: Normal Inspection, Non Tender, Supple Respiratory: Chest Non Tender, No Accessory Muscle Use, No Respiratory Distress Cardiovascular: Regular Rate, Rhythm, No JVD Gastrointestinal: soft, tenderness (minimal incisional tenderness no signs of infection) Extremity: Normal Capillary Refill, Normal Inspection Neurologic/Psychiatric: Alert, Oriented x3, Normal Mood/Affect Skin: Normal Color, Warm/Dry Lymphatic: No Adenopathy Assessment/Plan Assessment/Plan Assessment/Plan incarcerated left inguinal hernia s/p diagnostic lap c open hernia repair left small bowel obstruction secondary to left inguinal hernia-having bowel function 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 Medicine/cardiology consulted Final Diagnosis incarcerated left inguinal hernia s/p diagnostic lap c open hernia repair left small bowel obstruction secondary to left inguinal hernia-having bowel function [facility] anticoagulation History of valve replacement Supervisory-Addendum Brief Verification & Attestation Participated in pt care: history, MDM, physical Personally performed: exam, history, MDM, supervision of care Care discussed with: Medical Student Procedures: n/a Results interpretation: Verified all documentation Verification and Attestation of Medical Student E/M Service A medical student performed and documented this service in my presence. I reviewed and verified all information documented by the medical student and made modifications to such information, when appropriate. I personally performed the physical exam and medical decision making. Alexa Lisa, Aug 11, 2020,11:49 AVIVA SUMMERS MED STUDENT Aug 11, 2020 06:54 ALEXA LISA D DO Aug 11, 2020 11:49
[2020-08-11] MEDS ORDERED: VENlafaxine XR 75 MG (EFFEXOR XR) CAP PO SCH (07:00)
--- NOTE | 2020-08-11 07:04 | Anesthesia-General Post-Op ---
General Patient Condition Mental Status/LOC: Same as Preop Cardiovascular: Satisfactory Nausea/Vomiting: Absent Respiratory: Satisfactory Pain: Controlled Complications: Absent Post Op Complications Complications None Follow Up Care/Instructions Patient Instructions None needed. Anesthesia/Patient Condition Patient Condition Patient is doing well, no complaints, stable vital signs, no apparent adverse anesthesia problems. No complications reported per nursing. DEE HOFFMAN CRNA Aug 11, 2020 07:04
[2020-08-11 08:00] VITALS: BP 102/57
[2020-08-11] MEDS ORDERED: MULTIVIT W/MINERALS TAB (THERAGRAN M) PO SCH (08:00)
[2020-08-11] MEDS ORDERED: OMEGA 3 (FISH OIL) 1000 MG CAP PO SCH (08:00)
[2020-08-11] MEDS: D5 1/2 NS W/KCL 20 MEQ/L 1,000 ML IV SCH (08:09)
[2020-08-11] MEDS ORDERED: NS IV 500 ML 500 ML ONE (08:11)
[2020-08-11] MEDS: ENALAPRIL 2.5 MG (VASOTEC) TAB PO SCH (08:12)
[2020-08-11] MEDS ORDERED: NS IV 500 ML 500 ML IV ONE (08:15)
--- NOTE | 2020-08-11 08:20 | NUR ---
B/P 102/57. DR. NAVARRO HERE AND NOTIFIED, B/P MEDS X 3 HELD PER ORDER. BOLUS 500CC N/S.
[2020-08-11] MEDS ORDERED: SIMVASTATIN PO SCH (09:00)
[2020-08-11] MEDS ORDERED: DESVENLAFAXINE SUCC 50 MG (PRISTIQ) TAB NON-FORMULARY PO SCH (09:00)
[2020-08-11] MEDS ORDERED: HYDROCHLOROTHIAZIDE 25 MG (HCTZ) TAB PO SCH (09:00)
[2020-08-11] MEDS ORDERED: [UNRECOGNIZED DRUG - OTHER] PO SCH (09:00)
[2020-08-11] MEDS ORDERED: NON-FORMULARY MEDICATION 1 EA EA (Fish Oil/Borage/Flax/Om3,6,9#1 (Omega 3-6-9 1,200 mg Sof PO SCH (09:00)
[2020-08-11] MEDS ORDERED: EZETIMIBE PO SCH (09:00)
--- NOTE | 2020-08-11 09:10 | Cardiology Progress Note ---
Subjective Date Seen by Provider: Aug 11, 2020 Time Seen by Provider: 09:09 Subjective/Events-last exam patient was seen at bedside, sleeping comfortably, no reported complaints Objective-Cardiology Exam Last Set of Vital Signs Vital Signs 08/10/20 08/11/20 08/11/20 13:45 04:06 06:46 Temp 36.8 Pulse 76 Resp 18 B/P (MAP) 109/57 (74) Pulse Ox 96 O2 Delivery Room Air O2 Flow Rate 4 Capillary Refill : Less Than 3 Seconds I&O Intake and Output 08/11/20 00:00 Intake Total 3280 ml Output Total 1200 ml Balance 2080 ml Intake Oral 780 ml IV Total 2500 ml Output Urine Total 1200 ml # Voids 1 Daily Weight Change No HEENT: Atraumatic, PERRLA Neck: Supple, No JVD Lungs: Clear to Auscultation, Normal Air Movement Heart: Regular Rate, Normal S1, Normal S2 Abdomen: Soft Extremities: No Clubbing, No Cyanosis Skin: No Rashes A/P-Cardiology Admission Diagnosis CHF CAD AV replacement AAA Assessment/Plan Small bowel obstruction, left inguinal hernia, status post repair done on August 10, [address] Lisa, recovering well. CHF, 2D Echo done April 2020 showing EF 30-35%. Septal motion dyssynergy with mod to severely dilated left atrium, mod MR, TR, bioprosthetic valve in aortic postion appeared to be functioning normally. PA 55-60%. Deterioration compared to 2017 echo. Coronary artery disease with a history of coronary artery bypass surgery. Cardiac catheterization of 01/03/08 showed patent composite left internal [place] artery and saphenous vein graft to left anterior descending artery, two obtuse marginal arteries and the distal right coronary artery. The arteries to which the grafts go exhibited moderate diffuse disease. Proximal portions of the [place] coronary arteries were occluded. Patient has refused stress test in the past, continues to refuse stress test. Syncope d/t intermittent CHB, treated with dual chamber MRI-safe pacemaker (Biotronik) on 09/21/16. Pacemaker functioning normally on interrogation carried out on 01/02/20. 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 Last echo of 03/22/17 is reported to have shown LVEF 50-55%, no RWMA, dilated LA, AoV prosthesis with peak grad 20 mmHg and valve area 2 sq cm, and PASP 30 mmHg Hyperlipidemia, maintained on statin. Chronic anticoagulation with warfarin, followed by Dr Irvin. INR 1.6 History of abdominal aortic aneurysm on CT angiography of the abdominal aorta in 2002. On this CT angiography, some dissection was reported as well, and the patient saw Dr. Jung of Cardiovascular Surgery, who felt that the dissection was old. On subsequent ultrasonography by Dr. 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 On abdominal CT with contrast of July 2009, there was a calcified aorta without aneurysm. In August 2009 ultrasonography did not report an significant aneurysm. 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 On 06/30/13 u/s showed mild dilatation of distal abdominal aorta (measuring 3.1 cm); this remains unchanged on abd aortic u/s of 05/10/15 that showed AAA measuring 2.9x3.1. Last abd ao u/s on September 14, 2107: AAA measuring 3.[address] abd on this admission showing stable AAA. Diverticulosis of the sigmoid colon on abdominal CT with contrast of July 2009. Hypertension, continue to monitor blood pressure. Mild to mod carotid arterial disease per ultrasonography of 12/04/18 H/o restless legs, currently stable Presbycusis CHANTALE NAVARRO MD Aug 11, 2020 09:10
--- NOTE | 2020-08-11 09:24 | NUR ---
B/P 103/52. DR. ENGLE NOTIFIED OF CONTINUED LOW B/P AND HOME B/P MEDS IF PT DISCHARGED.
--- NOTE | 2020-08-11 11:34 | NUR ---
Pt states that he is going home today. Asked prayer also for his .
[2020-08-11 12:00] VITALS: BP 114/56
[2020-08-11] MEDS ORDERED: HYDR25TA4 PO (12:39)
[2020-08-11] MEDS ORDERED: MTP25TSR PO (12:39)
[2020-08-11] MEDS ORDERED: ENLP2.5T PO (12:39)
--- NOTE | 2020-08-11 13:01 | Discharge Inst-Simple/Standard ---
Discharge Inst-Standard Patient Instructions/Follow Up Plan of Care/Instructions/FU: 2 weeks Maria L Activity as Tolerated: No Discharge Diet: Regular Diet Other Inst to Patient Follow up Appt: Make appointment for 2 week. Instructions: No lifting greater than 10 pounds. No strenuous activity. May shower in 24 hours, no tub bath or soaking. Use incentive spirometer at home as directed. No Smoking Skin/Wound Care: You have brian to close your incision they will be removed at your follow up visit. Symptoms to Report: Appetite Changes, Extremity Discoloration, Numbness/Tingling, Swelling Increased, Bleeding Excessive, Eyesight Changes, Pain Increased, Urine Color Change, Constipation(Persistent), Fever over 101 degree F, Pain/Pressure in chest, Urinating Difficulty, Cough Up/Vomit Blood, Heart Beat Irreg/Pounding, Pain/Pressure in jaw, Vaginal Bleeding Increase, Cramps in feet or legs, Lightheadedness, Pain/Pressure in shoulder, Diarrhea(Persistent), Memory Changes Suddenly, Questions/Concerns, Weight gain consecutive days, Dizziness/Fainting, Nausea/Vomiting, Shortness of Breath, Weight gain over 2 pounds If questions or concerns contact your physician Or seek help at emergency department. ALEXA PORTILLO DO Aug 11, 2020 13:01
--- NOTE | 2020-08-11 13:44 | NUR ---
DC'D PER WC TO HOME.
--- NOTE | 2020-08-11 14:08 | Progress Note - Hospitalist ---
Subjective HPI/CC On Admission Date Seen by Provider: Aug 11, 2020 Time Seen by Provider: 14:03 Pt is an 85yoCM well known to me from the community who presented with abdominal pain and vomiting. He has a known left inguinal hernia and has seen Dr Lisa multiple times for this and has so far done ok with an abdominal binder and self reduction. Last night he was unable to get it reduced and developed worsening pain and vomited prompting him to seek evaluation in the ER. Subjective/Events-last exam pt reports feeling well. Hopeful to go home. No complaints. Pain controlled. Objective Exam Vital Signs Vital Signs Date Time Temp Pulse Resp B/P (MAP) Pulse Ox O2 Delivery O2 Flow Rate FiO2 08/11/20 12:28 75 08/11/20 12:00 36.2 18 114/56 (75) 95 Room Air 08/10/20 13:45 4 Capillary Refill : Less Than 3 SecondsLess Than 3 Seconds General Appearance: No Apparent Distress, Anxious, Chronically ill Cardiovascular: Regular Rate, Rhythm, No Murmur, Systolic Murmur Gastrointestinal: Normal Bowel Sounds, Non Tender, Soft Neurologic/Psychiatric: Alert, Oriented x3 Results/Procedures Lab Patient resulted labs reviewed. Imaging: Reviewed Imaging Report Assessment/Plan Assessment and Plan Assess & Plan/Chief Complaint Incarcerated inguinal hernia POD #1, doing well pt reports he is going home today Aortic valve replacement HLD HTN Cardiology consulted BP a little low today, hold home meds Resume anticoagulation DVT ppx: Diagnosis/Problems Diagnosis/Problems (1) small bowel obstruction due to left inguinal hernia (2) Left inguinal hernia (3) mechanical aortic valve on anticoagulation (4) CAD (coronary artery disease) Status: Chronic Qualifiers: Coronary Disease-Associated Artery/Lesion type: bypass graft [place] vs. transplanted heart: [place] heart Associated angina: without angina Qualified Codes: I25.810 - Atherosclerosis of coronary artery bypass graft(s) without angina pectoris (5) HTN (hypertension) Status: Chronic (6) Chronic anticoagulation Status: Chronic (7) Prophylactic measure WILL ENGLE MD Aug 11, 2020 14:08
--- NOTE | 2020-08-11 15:05 | NUR ---
Received dietary consult for MST score. Given current PO intake, pt is not at risk for malnutrition at this time. Crystal Prado, MS RD LD
[2020-08-11] MEDS ORDERED: warFARin 5 MG (COUMADIN) TAB PO SCH (18:00)
[2020-08-11] MEDS ORDERED: SIMvastatin 20 MG (ZOCOR) TAB PO SCH (21:00)
[2020-08-11] MEDS ORDERED: eZETimibe 10 MG (ZETIA) TABLET PO SCH (21:00)
--- NOTE | 2020-08-12 08:53 | Physician Query Clarification ---
PQ-CHF Specificity Admission Date: Aug 10, 2020 at 04:45 Discharge Date: Aug 11, 2020 at 13:44 Dr. Meraz, The medical record reflects the following clinical scenario: History/Risk Factors: incarcerated lt inguinal hernia, CAD, HTN, CHF Clinical Findings: EF 39-35% Treatment: Vasotec, Toprol, Metoprolol Question: Can you further specify the acuity &/or type of CHF per the clinical indicators above? Please document a response in the Progress Notes or Discharge Summary. 1. Acuity: Acute, Chronic or Acute on Chronic 2. Type: Systolic, Diastolic or Systolic & Diastolic 3. Unspecified: CHF cannot be further specified regarding type or acuity 4. Other, with explanation of clinical findings 5. Clinically undetermined, no explanation for clinical findings PHYSICIAN RESPONSE Acuity: Chronic Type: Systolic Please remember a lack of response to the above will prompt a phone page by [facility]/Coding staff. In responding to this query, please exercise your independent professional judgment. The purpose of this communication is to more accurately reflect the complexity of your patients condition. The fact that a question is asked does not imply that any particular answer is desired or expected. Thank you for your timely response to this clarification. Requestors name: Marcela [email or web address] THIS PHYSICIAN QUERY FORM IS A PERMANENT PART OF THE MEDICAL RECORD MARCELA ALVAREZ Aug 12, 2020 08:53 CHANTALE MERAZ MD Aug 12, 2020 13:09
[2020-08-12] MEDS ORDERED: warFARin 5 MG (COUMADIN) TAB PO SCH (18:00)
== END 2020-08-11 13:44 | disposition home or self-care (01) | DRG 351 ==
LOC: ER 02:32 → 4TH 04:45
PROVIDERS: ADMIT Surgery; ATTEND Surgery
PROC: 0YU60JZ Supplement Left Inguinal Region with Synthetic Substitute, Open Approach (ICD-10-PCS; principal; 2020-08-10 11:33)
PROC: 0YJ64ZZ Inspection of Left Inguinal Region, Percutaneous Endoscopic Approach (ICD-10-PCS; 2020-08-10 11:33)
DX: K40.30 Unilateral inguinal hernia, with obstruction, without gangrene, not specified as recurrent (principal); I50.22 Chronic systolic (congestive) heart failure; I11.0 Hypertensive heart disease with heart failure; I71.4 Abdominal aortic aneurysm, without rupture; I08.0 Rheumatic disorders of both mitral and aortic valves; K57.90 Diverticulosis of intestine, part unspecified, without perforation or abscess without bleeding; G25.81 Restless legs syndrome; H91.10 Presbycusis, unspecified ear; Z20.822 Contact with and (suspected) exposure to COVID-19; I25.10 Atherosclerotic heart disease of native coronary artery without angina pectoris; E78.00 Pure hypercholesterolemia, unspecified; E78.5 Hyperlipidemia, unspecified; I25.2 Old myocardial infarction; Z79.01 Long term (current) use of anticoagulants; Z95.2 Presence of prosthetic heart valve; Z95.1 Presence of aortocoronary bypass graft; Z95.0 Presence of cardiac pacemaker; Z95.5 Presence of coronary angioplasty implant and graft; Z87.891 Personal history of nicotine dependence; Z85.820 Personal history of malignant melanoma of skin; Z82.49 Family history of ischemic heart disease and other diseases of the circulatory system
CPT/HCPCS: 36415; 74019; 74176; 80053; 82150; 83690; 83735; 85007; 85027; 85610; 85730; 87081; 87635; 88302; 88305

== ENCOUNTER → 2020-10-12 | Outpatient (CLI) | payer MEDICARE ==
[~2020-10-12] MED LIST changes: +ENLP2.5T PO; +MULT-166 PO
== END ==
LOC: CARD 08:30
PROVIDERS: ATTEND Internal Medicine
DX: I42.9 Cardiomyopathy, unspecified (principal); I08.1 Rheumatic disorders of both mitral and tricuspid valves; Z95.2 Presence of prosthetic heart valve
CPT/HCPCS: 93306

== ENCOUNTER → 2021-11-10 | Outpatient (CLI) | payer MEDICARE ==
[~2021-11-10] MED LIST changes: +EZET-57 PO; -EZET1TAB65 PO; -SULF1TAB35 PO; +SULF1TAB38 PO
== END ==
LOC: CARD 08:54
PROVIDERS: ATTEND Nurse Practitioner Family
DX: I08.3 Combined rheumatic disorders of mitral, aortic and tricuspid valves (principal); Z95.4 Presence of other heart-valve replacement
CPT/HCPCS: 93306

== ENCOUNTER → 2022-01-16 | Outpatient (CLI) | payer MEDICARE ==
--- NOTE | 2022-01-16 09:52 | Diagnostic Imaging Report ---
EXAMINATION: US aorta, complete. TECHNIQUE: Multiple real-time grayscale images were obtained of the abdominal aorta in various projections. HISTORY: Abdominal aortic aneurysm. COMPARISON: 03/28/2018 FINDINGS: There is no abdominal aortic aneurysm or stenosis. Distal aorta: 3.3 x 3.5 cm Right common iliac: 1.0 x 1.7 cm Left common iliac: 0.8 x 1.0 cm IMPRESSION: 1. Minimally increased size of the distal aortic abdominal aneurysm measuring up to 3.5 x 3.3 cm. Dictated by: Dictated on workstation # [id number]
== END ==
LOC: RAD 07:12
PROVIDERS: ATTEND Internal Medicine Cardiovascular Disease
DX: I71.4 Abdominal aortic aneurysm, without rupture (principal)
CPT/HCPCS: 76775

== ENCOUNTER 2022-10-13 15:05 | Emergency (ER) | payer MEDICARE ==
[~2022-10-13] VITALS: Ht 170 cm; Wt 80.0 kg
[2022-10-13 15:06] VITALS: BP 0/0
[2022-10-13] MEDS ORDERED: ATROPINE INJECTION 1 MG/10 ML SYR (ABBOTT) INJ ONE (15:07)
[2022-10-13] MEDS ORDERED: EPINEPHrine 0.1 MG/ML 10 ML (HOSPIRA) SYR INJ ONE (15:07)
--- NOTE | 2022-10-13 16:08 | ED CPR ---
HPI-CPR General Chief Complaint: Code Blue Stated Complaint: CODE BLUE Nursing Triage Note: PT ARRIVED PER EMS, EMERGENT, PT WAS FOUND UNRESPONSIVE IN [facility]. CPR STARTED EMS HAS GIVEN 6 EPI, 3 SHOCKS, 1 AMP BICARB, 300MG AMIDARONE BOLUS. HAS I-GEL IN PLACE. FSBS 111 FOR EMS. UPON ARRIVAL, CPR IN PROGRESS. PT MOVED TO BED, ED APPLIED AND CPR CONT. PT HAS IV W NS INFUSING IN L AC #18. Source of Information: EMS, Family, Old Records Exam Limitations: No Limitations History of Present Illness Date Seen by Provider: Oct 13, 2022 Time Seen by Provider: 15:06 Allergies and Home Medications Allergies Coded Allergies: No Known Drug Allergies (Verified , 01/01/08) Patient Home Medication List Home Medication List Reviewed: Yes Desvenlafaxine Succinate (Pristiq ER) 50 Mg Tab.er.24h, 50 MG PO DAILY, (Reported) Entered as Reported by: TJ ROB on 03/28/20 1309 Enalapril Maleate (Enalapril Maleate) 2.5 Mg Tablet, 2.5 MG PO BID Prescribed by: WILL ENGLE on 08/11/20 1239 Ezetimibe/Simvastatin (Ezetimibe-Simvastatin 10-20 mg) 1 Each Tablet, 1 EACH PO DAILY, (Reported) Entered as Reported by: TJ ROB on 03/28/20 1309 Fish Oil/Borage/Flax/Om3,6,9#1 ([place] 3-6-9 1,200 mg Softgel) 1,200 Mg Capsule, 1,200 MG PO DAILY, (Reported) Entered as Reported by: TJ ROB on 08/03/15 1227 Hydrochlorothiazide (Hydrochlorothiazide) 25 Mg Tablet, 25 MG PO DAILY Prescribed by: WILL ENGLE on 08/11/20 1239 Metoprolol Succinate (Metoprolol Succinate) 25 Mg Tab.er.24h, 25 MG PO DAILY Prescribed by: WILL ENGLE on 08/11/20 1239 Multivitamin with Minerals (Multivitamins with Minerals) 1 Each Tablet, 1 EACH PO DAILY, (Reported) Entered as Reported by: YARELI NIELSON on 08/10/20 1118 Warfarin Sodium (Warfarin Sodium) 5 Mg Tablet, 2.5 MG PO MoTuWeTh, (Reported) Entered as Reported by: TJ ROB on 08/03/15 1227 Warfarin Sodium (Warfarin Sodium) 5 Mg Tablet, 5 MG PO SUN,FRI,SAT, (Reported) Entered as Reported by: YARELI NIELSON on 08/10/20 1105 Past Ntxecdz-Wmjyjm-Zuxmuj Hx Patient Social History Smoking Status: Unknown if Ever Smoked Smokeless Tobacco Frequency: Unknown if Ever Used Use of E-Cig and/or Vaping dev: Unable to obtain Substance use?: Unable to obtain Alcohol Use?: Unable to obtain Pt feels they are or have been: Unable to obtain Seasonal Allergies Seasonal Allergies: No Past Medical History Surgeries: Yes (CABG X4,CATARACTS,SKIN LESION REM.CHEST;YAG R EYE 07/2019;AORTIC VALVE REP) Cardiac, CABG, Coronary Stent, Eye Surgery, Pacemaker, Valve Replacement Respiratory: No Currently Using CPAP: No Currently Using BIPAP: No Cardiac: Yes (4 VESSEL CABG;STENT X1;PACEMAKER;MECHANICAL AORTIC VALVE;) Aneurysm, Coronary Artery Disease, Heart Attack, High Cholesterol, Hypertension, Irregular Heartbeat, Valvular Heart Disease Neurological: No Reproductive Disorders: No Sexually Transmitted Disease: No HIV/AIDS: No Genitourinary: No Gastrointestinal: Yes (LEFT INGUINAL HERNIA) Abdominal Hernia, Diverticulosis, Gall Bladder Disease Musculoskeletal: Yes (FRACTURE LUMBAR TRANSVERSE PROCESSES 2013;RESTLESS LEG SYNDROME) Fractures Endocrine: No HEENT: Yes (BILATERAL CATARACTS; YAG CAPSULOTOMY R EYE 08/05/20) Cataract Hearing Impairment: Hard of Hearing Cancer: Yes Skin, Melanoma Did You Recieve Any Treatments: Yes What Type of Treatment Did You: Surgical Intervention Psychosocial: No Integumentary: No Blood Disorders: No Adverse Reaction/Blood Tranf: No Family Medical History Cardiovascular disease G8 SISTER G8 SISTER Diabetes mellitus 19 MOTHER Myocardial infarction G8 BROTHER G8 BROTHER Parkinson's disease G8 SISTER No Pertinent Family Hx ADDITIONAL PAST MEDICAL AND SURGICAL HISTORY: -AORTIC VALVE REPLACEMENT, WITH REPLACEMENT OF AORTIC ARCH AND ASCENDING AORTA 1999 -KNOWN ABDOMINAL AORTIC ANEURYSM, 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--NO SURGERY -CAROTID DISEASE-NO INTERVENTION Physical Exam Vital Signs Vital Signs - First Documented 10/13/22 15:06 Temp 36.5 Pulse 0 Resp 20 B/P (MAP) 0/0 (0) Pulse Ox 43 O2 Delivery Ambu Bag Capillary Refill : Less Than 3 Seconds Height, Weight, BMI Height: 5'11.00" Weight: 210lbs. 4.8oz. [id number]; 27.00 BMI Method:Estimated Progress/Results/Core Measures Results/Orders My Orders Orders - HAYDEE PRUITT MD Atropine Inj 1 Mg Syringe (Atropine Inj (10/13/22 15:07) Epinephrine Emergency Syringe (Epinephr (10/13/22 15:07) Vital Signs/I&O 10/13/22 15:06 Temp 36.5 Pulse 0 Resp 20 B/P (MAP) 0/0 (0) Pulse Ox 43 O2 Delivery Ambu Bag Blood Pressure Mean: 0 Departure Departure-Patient Inst. Referrals: KATHY LOREDO MD (PCP/Family) Primary Care Physician HAYDEE PRUITT MD Oct 13, 2022 16:08
== END 2022-10-13 18:00 | disposition expired ==
LOC: EDUNIT# 15:05 → ER 15:06